=== PATIENT | male | born 1960 | race Two or more races ===

== ENCOUNTER → 2020-08-16 | Outpatient (CLI) | payer OTHER ==
--- NOTE | 2020-08-16 22:10 | REP ---
INDICATION: RT INGUINAL HERNIA COMPARISON: None TECHNIQUE: Axial noncontrast images from the lung bases to the pubic symphysis with coronal and sagittal reformations. This CT examination was performed using the following dose reduction techniques: Automated exposure control, adjustment of mA and/or kv according to the patient's size, and use of iterative reconstruction technique. FINDINGS: Lung bases are clear. Visualized portions of the heart suggest cardiomegaly. Liver, spleen, pancreas, bilateral adrenal glands and kidneys are relatively normal for noncontrast evaluation. Cholelithiasis noted without acute cholecystitis. There is a large right inguinal hernia extending into and significantly distending the hemiscrotum to greater than 11 cm and includes mesenteric fat and multiple loops of nonobstructed small bowel, terminal ileum, and cecum/proximal ascending colon as well as the appendix. Significant diverticulosis throughout the descending and sigmoid colon is appreciated along with fat stranding adjacent to the descending/proximal sigmoid colon which requires correlation to exclude acute diverticulitis. There is no evidence for bowel obstruction or perforation and no ascites or drainable collection/abscess. A small fat containing left inguinal hernia is also identified. Pelvis demonstrates normal bladder and age-appropriate prostate/seminal vesicles. No ascites. No free air. No adenopathy. Abdominal aorta without aneurysm. Musculoskeletal structures are intact and without acute osseous abnormality. IMPRESSION: 1. Large right inguinal hernia extending into the right hemiscrotum which contains multiple loops of nonobstructed small bowel as well as the terminal ileum, cecum and appendix. 2. Colonic diverticulosis with subtle stranding adjacent to the distal descending/proximal sigmoid colon raising the possibility of diverticulitis and correlation is required. 3. Cholelithiasis 4. Possible cardiomegaly <Electronically signed by Cecilio Sorenson > 08/16/20 [id number]
== END ==
LOC: M RAD 14:11
PROVIDERS: ATTEND Surgery
DX: K40.90 Unilateral inguinal hernia, without obstruction or gangrene, not specified as recurrent (principal); K57.30 Diverticulosis of large intestine without perforation or abscess without bleeding; K80.20 Calculus of gallbladder without cholecystitis without obstruction

== ENCOUNTER → 2020-09-08 | Outpatient (CLI) | payer OTHER | LOC: M LABSMTC 12:23 | PROVIDERS: ATTEND Surgery | DX: Z11.59 Encounter for screening for other viral diseases (principal) ==

== ENCOUNTER 2020-10-13 10:34 | Outpatient (RCR) | payer OTHER | END 2020-10-17 | LOC: M PT 10:34 | PROVIDERS: ATTEND Nurse Practitioner Adult Health | DX: Z47.89 Encounter for other orthopedic aftercare (principal); Z89.511 Acquired absence of right leg below knee; Z97.13 Presence of artificial right leg (complete) (partial) ==

== ENCOUNTER 2020-11-10 10:44 | Outpatient (RCR) | payer OTHER | END 2020-11-14 | LOC: M PT 10:44 | PROVIDERS: ATTEND Nurse Practitioner Adult Health | DX: Z47.89 Encounter for other orthopedic aftercare (principal); Z97.13 Presence of artificial right leg (complete) (partial) ==

== ENCOUNTER → 2020-12-15 | Outpatient (RCR) | payer OTHER | LOC: M PT 11-17 10:36 | PROVIDERS: ATTEND Nurse Practitioner Adult Health | DX: Z51.89 Encounter for other specified aftercare (principal); Z89.511 Acquired absence of right leg below knee ==

== ENCOUNTER 2021-01-12 11:45 | Outpatient (RCR) | payer OTHER | END 2021-01-14 | LOC: M PT 11:45 | PROVIDERS: ATTEND Nurse Practitioner Adult Health | DX: Z89.511 Acquired absence of right leg below knee (principal) ==

== ENCOUNTER → 2021-01-14 | Outpatient (CLI) | payer OTHER | LOC: M LABSMTC 12:02 | PROVIDERS: ATTEND Student in an Organized Health Care Education/Training Program | DX: Z01.818 Encounter for other preprocedural examination (principal); Z11.52 Encounter for screening for COVID-19 ==

== ENCOUNTER 2021-01-26 11:27 | Outpatient (RCR) | payer OTHER | END 2021-02-14 | LOC: M PT 11:27 | PROVIDERS: ATTEND Nurse Practitioner Adult Health | DX: R26.89 Other abnormalities of gait and mobility (principal); Z89.519 Acquired absence of unspecified leg below knee ==

== ENCOUNTER → 2021-03-16 | Outpatient (RCR) | payer MEDICARE, OTHER | END | disposition still patient (30) | LOC: M PT 10:35 | PROVIDERS: ATTEND Nurse Practitioner Family | DX: Z89.511 Acquired absence of right leg below knee (principal) ==

== ENCOUNTER 2021-04-13 10:41 | Outpatient (RCR) | payer MEDICARE, OTHER | END 2021-04-16 | LOC: M PT 10:41 | PROVIDERS: ATTEND Nurse Practitioner Family | DX: Z89.511 Acquired absence of right leg below knee (principal) ==

== ENCOUNTER 2021-05-11 11:00 | Outpatient (RCR) | payer MEDICARE, OTHER | END 2021-05-17 | LOC: M PT 11:00 | PROVIDERS: ATTEND Nurse Practitioner Family | DX: Z89.511 Acquired absence of right leg below knee (principal) ==

== ENCOUNTER 2021-06-10 15:46 | Observation (INO) | payer MEDICARE, OTHER ==
[~2021-06-10] VITALS: Ht 170.2 cm; Wt 112.9 kg
[2021-06-10] MEDS ORDERED: BASA100I SC (21:12)
[2021-06-10] MEDS ORDERED: METO1TAB7 PO (21:12)
[2021-06-10] MEDS ORDERED: SIMV40TA20 PO (21:12)
[2021-06-10] MEDS ORDERED: ALLO100T PO (21:12)
[2021-06-10] MEDS ORDERED: FURO40TA2 PO (21:12)
[2021-06-10] MEDS ORDERED: [UNRECOGNIZED DRUG - CODE] PO (21:12)
[2021-06-10] MEDS ORDERED: LISI20TA33 PO (21:12)
[2021-06-10] MEDS ORDERED: CALC1CAP31 PO (21:12)
[2021-06-10] MEDS ORDERED: SODI650T PO (21:12)
[2021-06-10] MEDS ORDERED: ELIQ2.5T PO (21:12)
[2021-06-10] MEDS ORDERED: FLUTISP (21:12)
[2021-06-10] MEDS ORDERED: MORPHINE 4 MG/ML 1ML VIAL/SYRINGE (J2270) IV ONE (21:35)
[2021-06-10] MEDS ORDERED: NS 500 ML IV ONE (21:35)
[2021-06-10] MEDS ORDERED: ACET-840 PO (22:04)
[2021-06-10] MEDS ORDERED: HOME MED LIST COMPLETE! XX SCH (22:05)
--- NOTE | 2021-06-10 23:47 | REPVR ---
PROCEDURE INFORMATION: Exam: XR Left Hip Exam date and time: 06/10/2021 11:00 PM Age: 60 years old Clinical indication: Left hip pain. TECHNIQUE: Imaging protocol: XR Left hip. Views: 2 or 3 views hip with pelvis when performed. COMPARISON: CT ABD PELVIS W/O CONTRAST 08/16/2020 2:35 PM (The report from this study was not available for review at the time of this interpretation.) FINDINGS: Bones/joints: There is no fracture or dislocation of the bony pelvis or left hip. There is mild osteoarthritis of the left hip. Degenerative changes are present in the imaged portion of the lumbar spine. Soft tissues: Bowel gas is noted projecting over the right groin, and a large right inguinal hernia can be seen in the CT abdomen and pelvis on 08/16/2020. IMPRESSION: 1. No fracture or dislocation of the bony pelvis or left hip. 2. Mild osteoarthritis of the left hip. 3. Bowel gas projecting over the right groin, and a large right inguinal hernia can be seen in the CT abdomen and pelvis on 08/16/2020. Electronically signed by: Baltazar Prieto On 06/10/2021 23:47:06 PM
[2021-06-10 23:49] LABS: BASO # 0.1 10^3/uL (0.0-0.2); BASO % 0.8 % (0.0-1.0); EOS # 0.2 10^3/uL (0.0-0.5); EOS % 2.9 % (0.0-3.0); HEMATOCRIT 31.5 % (42.0-52.0); HEMOGLOBIN 9.8 g/dl (13.5-17.5); LYMPH # 1.8 10^3/uL (1.5-5.0); LYMPH % 24.1 % (24.0-44.0); MEAN CORPUSCULAR HEMOGLOBIN 31.5 pg (27.0-33.0); MEAN CORPUSCULAR HGB CONC 31.1 g/dl (32.0-36.5); MEAN CORPUSCULAR VOLUME 101.3 fl (80.0-96.0); MONO # 0.7 10^3/uL (0.0-0.8); MONO % 8.6 % (2.0-8.0); NEUTROPHILS # 4.8 10^3/uL (1.5-8.5); NEUTROPHILS % 63.3 % (36.0-66.0); PLATELET COUNT, AUTOMATED 235 10^3/uL (150-450); RED BLOOD COUNT 3.11 10^6/uL (4.30-6.10); WHITE BLOOD COUNT 7.5 10^3/uL (4.0-10.0)
[2021-06-11 00:05] LABS: VENOUS HCO3 17.5 MEQ/L (23.0-27.0); VENOUS O2 SATURATION 69.2 % (60.0-80.0); VENOUS PARTIAL PRESSURE O2 39.5 mmHg (30.0-50.0); VENOUS PH 7.208 UNITS (7.330-7.430); VENOUS TOTAL CO2 18.9 MEQ/L (24.0-28.0)
[2021-06-11 00:59] LABS: ACETONE/KETONE 4.31 MG/DL (<2.81); CALCIUM LEVEL 7.4 MG/DL (8.5-10.1); CREATININE FOR GFR 5.65 MG/DL (0.70-1.30); GLOMERULAR FILTRATION RATE 13.4 (>56)
[2021-06-11 01:00] LABS: POTASSIUM SERUM 6.4 MEQ/L (3.5-5.1)
[2021-06-11] MEDS ORDERED: SOD POLYSTYRENE SULFONATE SUSP 15 GM/60 ML UD PO ONE (02:15)
--- NOTE | 2021-06-11 02:48 | HPEPDOC ---
[facility] Medical History & Physical Date of Admission Jun 11, 2021 Date of Service: Jun 11, 2021 History and Physical CHIEF COMPLAINT: Left groin pain HISTORY OF PRESENT ILLNESS: 60-year-old male history of insulin-dependent diabetes, chronic kidney disease, atrial fibrillation who presents to emergency department complaining of left groin discomfort workup not very remarkable no fracture on x-ray possibly bursitis incidentally patient was found to have a potassium of 6.0. We don't have much higher records he follows with a grain mill products inspector in [place] for his chronic kidney disease he has an AV fistula which was completed about 3 months ago he is not yet on dialysis. Patient will be admitted for management of hyper kalemia in the setting of chronic kidney disease. Patient has no shortness of breath or chest pain. Patient is able to make urine without difficulty. PAST MEDICAL/SURGICAL HISTORY: Is some dependent diabetes Chronic kidney disease Atrial fibrillation Right below knee amputation AV fistula left arm SOCIAL HISTORY: Denies alcohol use Trying to quit tobacco use uses 1-2 cigarettes a day Denies illicit drug use FAMILY HISTORY: Father had a history of diabetes and congestive heart failure ALLERGIES: Please see below. REVIEW OF SYSTEMS: 10 point review of systems complete all negative otherwise stated in HPI HOME MEDICATIONS: Please see below. PHYSICAL EXAMINATION: Constitutional: Awake and alert, in no apparent distress ENT: Sclera are clear. Mucosa is moist. Respiratory: Lungs CTA bilaterally. No respiratory distress. Cardiovascular: Irregular heart rate. Heart rate 109 on monitor. Gastrointestinal: Abdomen is soft, non distended, non tender, BS present. Musculoskeletal: No lower left extremity edema. Right below-knee amputation. Able to move his left leg freely at the hip joint some discomfort around the lateral bursa. Neurologic: No focal neurological deficit. Mental Status: A&O x3, normal affect Skin: No visible rashes LABORATORY DATA: See below. IMAGING: See chart MICROBIOLOGY: Please see below. ASSESSMENT/PLAN 60-year-old male history of insulin-dependent diabetes, chronic kidney disease, atrial fibrillation admitted for observation for management of hyperkalemia in the setting of chronic kidney disease # Hyperkalemia: Potassium 6.0 on admission. Given 1 dose of 30 mg of Kayexalate. 1 L of normal saline started. EKG reviewed no peak T waves. Repeat potassium level in the morning. # Chronic kidney disease: Making urine. Likely progressing. As long as his kidney function remains stable he should be able to follow-up with his grain mill products inspector at time of discharge. # Atrial fibrillation: Heart rate 109 on monitor. Continue home medications. Continue to correlation with damon. # Left groin discomfort: Reports it's better on its own over the past several hours. Possibly bursitis. Monitor progression overnight. # DVT prophylaxis: Damon Garcia Hospitalist Vital Signs Vital Signs Date Time Temp Pulse Resp B/P (MAP) Pulse Ox O2 Delivery O2 Flow Rate FiO2 06/10/21 22:01 18 Room Air 06/10/21 15:47 98.4 64 137/87 (104) 98 Laboratory Data Labs 24H Laboratory Tests 2 06/10/21 21:05: POC Glucose (Misc Panel) 116H, POC Sodium (Misc Panel) 140, POC Potassium (Misc Panel) 5.7H, POC Chloride (Misc Panel) 116H, POC Total CO2 (Misc Panel) 17.0L, POC Blood Urea Nitrogen (Misc Panel 67H, POC Ionized Calcium (Misc Panel) 3.8L, POC Creatinine (Misc Panel) 6.3H, POC Hematocrit (Misc Panel) 36.0L 06/10/21 23:22: Immature Granulocyte % (Auto) 0.3, Neutrophils (%) (Auto) 63.3, Lymphocytes (%) (Auto) 24.1, Monocytes (%) (Auto) 8.6H, Eosinophils (%) (Auto) 2.9, Basophils (%) (Auto) 0.8, Neutrophils # (Auto) 4.8, Lymphocytes # (Auto) 1.8, Monocytes # (Auto) 0.7, Eosinophils # (Auto) 0.2, Basophils # (Auto) 0.1, Nucleated Red Blood Cells % (auto) 0.0, Blood Gas Bicarbonate Standard 16.0, Venous Blood pH 7.208L, Venous Blood Partial Pressure CO2 45.0, Venous Blood Partial Pressure O2 39.5, Venous Blood Total Carbon Dioxide 18.9L, Venous Blood HCO3 17.5L, Venous Blood Oxygen Saturation 69.2, Venous Blood Base Excess -10.0L 06/10/21 23:23: Anion Gap 10, Glomerular Filtration Rate 13.4L, Calcium Level 7.4L, B- Hydroxybutyrate 4.31H 06/11/21 02:34: CBC/BMP Laboratory Tests 06/10/21 23:22 06/10/21 23:23 06/11/21 01:40 Home Medications Scheduled Allopurinol (Allopurinol) 100 Mg Tablet, 100 MG PO DAILY Apixaban (Eliquis) 2.5 Mg Tablet, 2.5 MG PO BID Calcitriol (Calcitriol) 0.25 Mcg Capsule, 0.25 MCG PO DAILY Calcium Carbonate (Calcium Antacid) 300 Mg Tab.chew, 900 MG PO TID Fluticasone Propionate (Fluticasone Propionate) 16 Gm [place].susp, 1 SPRAY NA DAILY Furosemide (Furosemide) 40 Mg Tablet, 40 MG PO DAILY Insulin Glargine,Hum.rec.anlog (Basaglar Kwikpen U-100) 100 Unit/1 Ml Insuln.pen, 16 UNITS SC QHS Lisinopril (Lisinopril) 20 Mg Tablet, 20 MG PO DAILY Metoprolol Succinate (Metoprolol Succinate) 50 Mg Tab.er.24h, 50 MG PO DAILY Simvastatin (Simvastatin) 40 Mg Tablet, 40 MG PO DAILY Sodium Bicarbonate (Sodium Bicarbonate) 650 Mg Tablet, 1,300 MG PO TID Scheduled PRN Acetaminophen (Acetaminophen) 500 Mg Tablet, 1,500 MG PO TID PRN for P Allergies Coded Allergies: No Known Allergies (Unverified , 06/10/21) EDIL GARCIA MD Jun 11, 2021 02:48
[2021-06-11] MEDS ORDERED: GLUCAGON INJ 1MG VIAL SC PRN (02:50)
[2021-06-11] MEDS ORDERED: GLUCOSE 4GM CHEW TABLET PO PRN (02:50)
[2021-06-11] MEDS ORDERED: ACETAMINOPHEN TAB 650MG DOSE (2X325MG) PO PRN (02:50)
[2021-06-11] MEDS ORDERED: DEXTROSE 50% 50 ML SYRINGE IV PRN (02:50)
[2021-06-11] MEDS ORDERED: MOM 30ML SUSPENSION UDC PO PRN (02:50)
[2021-06-11] MEDS: LEVEMIR (INSULIN DETEMIR) 1 UNITS/0.01ML SC SCH ×2 (03:14→20:42)
[2021-06-11 03:17] LABS: RSV AMPLIFICATION NEGATIVE (NEGATIVE)
[2021-06-11] MEDS: NS 1,000 ML IV SCH ×2 (03:21→11:50)
[2021-06-11] MEDS ORDERED: PERCOCET 5MG/325MG TAB PO PRN (05:20)
[2021-06-11] MEDS: MORPHINE 2 MG/ML 1ML VIAL (J2270) IV PRN ×2 (05:35→11:59)
[2021-06-11 06:00] VITALS: BP 147/82
[2021-06-11 07:20] LABS: HEMATOCRIT 29.3 % (42.0-52.0); HEMOGLOBIN 9.1 g/dl (13.5-17.5); MEAN CORPUSCULAR HEMOGLOBIN 31.4 pg (27.0-33.0); MEAN CORPUSCULAR HGB CONC 31.1 g/dl (32.0-36.5); PLATELET COUNT, AUTOMATED 225 10^3/uL (150-450); WHITE BLOOD COUNT 6.1 10^3/uL (4.0-10.0)
[2021-06-11 07:54] LABS: ALBUMIN 2.5 GM/DL (3.2-5.2); BILIRUBIN,TOTAL 0.9 MG/DL (0.2-1.0); CALCIUM LEVEL 7.4 MG/DL (8.5-10.1); CREATININE FOR GFR 5.52 MG/DL (0.70-1.30); GLOMERULAR FILTRATION RATE 13.8 (>56); POTASSIUM SERUM 5.2 MEQ/L (3.5-5.1); TOTAL PROTEIN 5.9 GM/DL (6.4-8.2)
[2021-06-11] MEDS ORDERED: oxyCODONE 5MG TAB PO PRN (09:00)
[2021-06-11] MEDS ORDERED: METOPROLOL SUCC (TopROL XL) 50MG **XL** TAB PO SCH (09:00)
--- NOTE | 2021-06-11 09:06 | ECGEPIP ---
[facility] - ED Test Date: 2021-06-10 Pat Name: KAILYN JOSE Department: Room: [place] [address] Gender: Male Pocket Stitcher: ANTONI : 1960 Requested By: JEANNINE RESTREPO PA-C. Order Number: [id number] Reading MD: Ian Alexandra Measurements Intervals [place] Rate: 113 P: GA: QRS: -15 QRSD: 82 T: 5 QT: 336 QTc: 460 Interpretive Statements Atrial fibrillation with rapid ventricular response Nonspecific ST abnormality NO PRIORS FOR COMPARISON Electronically Signed on 06-11-2021 9:06:26 EDT by Ian Alexandra
[2021-06-11] MEDS: HumaLOG INSULIN (NovoLOG) PER UNIT SC SCH ×3 (10:49→17:29)
[2021-06-11] MEDS: CALCIUM CARBONATE 500 MG CHEW U/D PO SCH ×3 (11:44→20:43)
[2021-06-11] MEDS: SODIUM BICARBONATE 325 MG TAB PO SCH ×3 (11:44→20:43)
[2021-06-11] MEDS: CALCITRIOL 0.25 MCG CAP (S0169) PO SCH (11:45)
[2021-06-11] MEDS: APIXABAN 2.5 MG TAB (ELIQUIS) PO SCH ×2 (11:45→20:43)
[2021-06-11] MEDS: allopurinoL 100 MG TAB PO SCH (11:45)
[2021-06-11] MEDS: SIMVASTATIN 40 MG TAB PO SCH (11:45)
[2021-06-11] MEDS: FUROSEMIDE 40 MG TAB PO SCH (11:45)
[2021-06-11 14:00] VITALS: BP 130/72
[2021-06-11 14:05] LABS: CALCIUM LEVEL 7.5 MG/DL (8.5-10.1); CREATININE FOR GFR 5.46 MG/DL (0.70-1.30)
--- NOTE | 2021-06-11 18:31 | IPNPDOC ---
Subjective Date Seen The patient was seen on 06/11/21. Subjective Chief Complaint/HPI Mr. Dempsey is a 60-year-old male with history of insulin-dependent diabetes mellitus, CKD, and atrial fibrillation who presents with left groin pain and found to have hyperkalemia. Patient tells me that he has an AV fistula but not on dialysis yet. We discussed renal diet and avoiding foods high in potassium. Otherwise patient tells me his appetite has been poor, but he feels like he could eat today. I switch his diet to renal diet. Objective Physical Examination General Exam: Positive: Alert, Cooperative Eye Exam: Negative: Sclera icteric ENT Exam: Positive: Atraumatic Neck Exam: Positive: Supple Chest Exam: Positive: Clear to auscultation Heart Exam: Positive: Tachycardic, Regular Rhythm Abdomen Exam: Positive: Normal bowel sounds, Soft; Negative: Tenderness Neuro Exam: Positive: Normal Speech Psych Exam: Positive: Mental status NL, Mood NL Assessment /Plan Assessment Mr. Dempsey is a 60-year-old male with history of insulin-dependent diabetes mellitus, CKD, and atrial fibrillation who presents with left groin pain and found to have hyperkalemia. Possibly secondary to worsening renal function. Educated patient on renal diet and patient received IV fluids today. Potassium slowly trending downwards. Plan/VTE VTE Prophylaxis Ordered?: Yes Plan 1. Hyperkalemia Also secondary to worsening renal function in the setting of poor oral intake Hyperkalemia responded to Kayexalate and IV fluids Continue renal diet 2. Anorexia Patient tells me since last , he did not feel like eating Denies nausea and denies loss/change of taste Encourage oral intake 3. Diabetes mellitus Continue basal insulin at a reduced dose due to poor oral intake Sliding scale insulin Switched from carbohydrate consistent diet to renal diet as patient's oral intake was low 4. Starvation ketosis Ketones elevated, unlikely DKA Encourage oral intake 5. Atrial fibrillation Heart rate elevated but less than 120 Continue metoprolol Continue Eliquis 6. Left groin discomfort Most likely bursitis Supportive care and pain control 7. DVT prophylaxis Continue Eliquis Disposition: Pending diet tolerance and improvement in hyperkalemia VS, I&O, 24H, Fishbone Vital Signs/I&O Vital Signs Date Time Temp Pulse Resp B/P (MAP) Pulse Ox O2 Delivery O2 Flow Rate FiO2 06/11/21 15:38 18 06/11/21 14:00 97.8 102 130/72 (91) 100 Room Air Laboratory Data 24H LABS Laboratory Tests 2 06/10/21 21:05: POC Glucose (Misc Panel) 116H, POC Sodium (Misc Panel) 140, POC Potassium (Misc Panel) 5.7H, POC Chloride (Misc Panel) 116H, POC Total CO2 (Misc Panel) 17.0L, POC Blood Urea Nitrogen (Misc Panel 67H, POC Ionized Calcium (Misc Panel) 3.8L, POC Creatinine (Misc Panel) 6.3H, POC Hematocrit (Misc Panel) 36.0L 06/10/21 23:22: Immature Granulocyte % (Auto) 0.3, Neutrophils (%) (Auto) 63.3, Lymphocytes (%) (Auto) 24.1, Monocytes (%) (Auto) 8.6H, Eosinophils (%) (Auto) 2.9, Basophils (%) (Auto) 0.8, Neutrophils # (Auto) 4.8, Lymphocytes # (Auto) 1.8, Monocytes # (Auto) 0.7, Eosinophils # (Auto) 0.2, Basophils # (Auto) 0.1, Nucleated Red Blood Cells % (auto) 0.0, Blood Gas Bicarbonate Standard 16.0, Venous Blood pH 7.208L, Venous Blood Partial Pressure CO2 45.0, Venous Blood Partial Pressure O2 39.5, Venous Blood Total Carbon Dioxide 18.9L, Venous Blood HCO3 17.5L, Venous Blood Oxygen Saturation 69.2, Venous Blood Base Excess -10.0L 06/10/21 23:23: Anion Gap 10, Glomerular Filtration Rate 13.4L, Calcium Level 7.4L, B-Hydroxybutyrate 4.31H 06/11/21 02:34: Coronavirus (COVID-19)(PCR) NEGATIVE, Influenza Type A (RT-PCR) NEGATIVE, Influenza Type B (RT-PCR) NEGATIVE, Respiratory Syncytial Virus (PCR) NEGATIVE 06/11/21 03:08: Bedside Glucose (Misc Panel) 87 06/11/21 06:50: Nucleated Red Blood Cells % (auto) 0.0, Anion Gap 11, Glomerular Filtration Rate 13.8L, Calcium Level 7.4L, Total Bilirubin 0.9, Aspartate Amino Transf (AST/SGOT) 17, Alanine Aminotransferase (ALT/SGPT) 19, Alkaline Phosphatase 140H, Total Protein 5.9L, Albumin 2.5L, Albumin/Globulin Ratio 0.7 06/11/21 11:47: Bedside Glucose (Misc Panel) 153H 06/11/21 13:27: Anion Gap 8, Glomerular Filtration Rate 14.0L, Calcium Level 7.5L 06/11/21 17:20: Bedside Glucose (Misc Panel) 92 CBC/BMP Laboratory Tests 06/10/21 23:22 06/10/21 23:23 06/11/21 01:40 06/11/21 06:50 06/11/21 13:27 VERONIKA CLEMENT DO Jun 11, 2021 18:25
[2021-06-11] MEDS ORDERED: HumaLOG INSULIN (NovoLOG) PER UNIT SC SCH (21:00)
[2021-06-11 22:00] VITALS: BP 130/70
[2021-06-12 06:03] VITALS: BP 115/70
[2021-06-12 06:07] LABS: HEMATOCRIT 27.4 % (42.0-52.0); HEMOGLOBIN 8.5 g/dl (13.5-17.5); MEAN CORPUSCULAR HEMOGLOBIN 31.3 pg (27.0-33.0); MEAN CORPUSCULAR VOLUME 100.7 fl (80.0-96.0); PLATELET COUNT, AUTOMATED 234 10^3/uL (150-450); RED BLOOD COUNT 2.72 10^6/uL (4.30-6.10)
[2021-06-12 06:31] LABS: ALBUMIN 2.3 GM/DL (3.2-5.2); CREATININE FOR GFR 5.58 MG/DL (0.70-1.30); GLOMERULAR FILTRATION RATE 13.6 (>56); MAGNESIUM LEVEL 1.6 MG/DL (1.8-2.4); PHOSPHORUS LEVEL 5.6 MG/DL (2.5-4.9); POTASSIUM SERUM 4.6 MEQ/L (3.5-5.1)
[2021-06-12] MEDS: HumaLOG INSULIN (NovoLOG) PER UNIT SC SCH (07:30)
[2021-06-12] MEDS ORDERED: OXYC-517 PO (08:10)
[2021-06-12] MEDS ORDERED: ACET-840 PO (08:10)
[2021-06-12] MEDS ORDERED: BASA100I SC (08:10)
[2021-06-12] MEDS: CALCITRIOL 0.25 MCG CAP (S0169) PO SCH (08:57)
[2021-06-12] MEDS: allopurinoL 100 MG TAB PO SCH (08:57)
[2021-06-12 08:58] VITALS: BP 115/70
[2021-06-12] MEDS: APIXABAN 2.5 MG TAB (ELIQUIS) PO SCH (08:58)
[2021-06-12] MEDS: SIMVASTATIN 40 MG TAB PO SCH (08:58)
[2021-06-12] MEDS: CALCIUM CARBONATE 500 MG CHEW U/D PO SCH (08:58)
[2021-06-12] MEDS: FUROSEMIDE 40 MG TAB PO SCH (08:58)
[2021-06-12] MEDS: SODIUM BICARBONATE 325 MG TAB PO SCH (08:58)
[2021-06-12] MEDS ORDERED: METOPROLOL SUCC *XL* 25MG TAB (TopROL *XL*) PO SCH ×2 (09:00)
--- NOTE | 2021-06-12 13:47 | DS.PDOC ---
Discharge Summary General Date of Admission Jun 10, 2021 at 15:47 Date of Discharge Jun 12, 2021 Discharge Summary PROCEDURES PERFORMED DURING STAY: None ADMITTING DIAGNOSES: 1. Hyperkalemia 2. Anorexia 3. Insulin-dependent diabetes mellitus 4. Starvation ketosis 5. Persistent atrial fibrillation 6. Left groin discomfort 7. Morbid obesity 8. CKD stage IV DISCHARGE DIAGNOSES: 1. Hyperkalemia 2. Anorexia 3. Insulin-dependent diabetes mellitus 4. Starvation ketosis 5. Persistent atrial fibrillation 6. Left hip osteoarthritis 7. Morbid obesity 8. CKD stage IV COMPLICATIONS/CHIEF COMPLAINT: Atrial Fibrillation With Rvr, Bursitis Of Left Hip. HISTORY OF PRESENT ILLNESS: Copied from admitting attendings H&P " 60-year-old male history of insulin-dependent diabetes, chronic kidney dis ease, atrial fibrillation who presents to emergency department complaining of left groin discomfort workup not very remarkable no fracture on x-ray possibly bursitis incidentally patient was found to have a potassium of 6.0. We don't have much higher records he follows with a hemmer chainstitch in [place] for his chronic kidney disease he has an AV fistula which was completed about 3 months ago he is not yet on dialysis. Patient will be admitted for management of hyperkalemia in the setting of chronic kidney disease. Patient has no shortness of breath or chest pain. Patient is able to make urine without difficulty. HOSPITAL COURSE: During hospitalization, patient was given Kayexalate and IV fl uids. Renal function improved and potassium declined. Since patient had a poor appetite, I switch him from a carbohydrate consistent diet to a renal diet. I discussed the importance of avoiding foods high in potassium. Otherwise, I encouraged the patient to eat. His blood sugar was on the lower end. I switched his Basaglar from 16 units at bedtime to 5 units at bedtime. This morning, his hyperkalemia resolved. He denies chest pain or abdominal pain. He still had some left hip pain secondary to osteoarthritis. Patient felt ready for home and was discharged home. DISCHARGE MEDICATIONS: Please see below. ALLERGIES: Please see below. PHYSICAL EXAMINATION ON DISCHARGE: VITAL SIGNS: Please see below. GENERAL: Comfortable, in no apparent distress. HEENT: Head normocephalic/atraumatic, sclera clear. NECK: Supple. RESPIRATORY: Lungs clear to auscultation bilaterally, no rales, wheeze or rhonchi. CARDIOVASCULAR: Irregular. ABDOMEN: Soft, nontender, no guarding or rebound tenderness. Normal bowel sounds. MUSCLE SKELETAL: Right leg BKA PSYCHOLOGICAL: Normal mood and affect LABORATORY DATA: Please see below. IMAGING: Radiologist interpretation Left hip x-ray 1. No fracture or dislocation of the bony pelvis or left hip. 2. Mild osteoarthritis of the left hip. 3. Bowel gas projecting over the right groin, and a large right inguinal hernia can be seen in the CT abdomen and pelvis on 08/16/2020. PROGNOSIS: Good ACTIVITY: As tolerated. DIET: Renal diet DISCHARGE PLAN: Home DISPOSITION: Home, Self-Care. DISCHARGE INSTRUCTIONS: 1. Follow-up with PCP within 1 week 2. Follow-up with your hemmer chainstitch within 1 week. Have the hemmer chainstitch look over your labs 3. It does not appear that you will need lisinopril. Lisinopril may have contributed to your hyperkalemia 4. I have reduced your Basaglar from 16 units at bedtime to 5 units at bedtime. If your appetite improves, discuss with your PCP about increasing your Basaglar. ITEMS TO FOLLOWUP ON ON OUTPATIENT: 1. Blood glucose 2. Potassium DISCHARGE CONDITION: Stable. Total time spent on discharge planning, discharge summary, and medication reconciliation: 30 minutes Vital Signs/I&Os Vital Signs Date Time Temp Pulse Resp B/P (MAP) Pulse Ox O2 Delivery O2 Flow Rate FiO2 06/12/21 08:58 106 115/70 06/12/21 06:03 98.8 18 100 06/11/21 14:00 Room Air I&O- Last 24 Hours up to 6 AM 06/12/21 06:00 Intake Total 3580 ml Output Total 750 ml Balance 2830 ml Laboratory Data Labs 24H Laboratory Tests 2 06/11/21 17:20: Bedside Glucose (Misc Panel) 92 06/11/21 20:07: Bedside Glucose (Misc Panel) 170H 06/12/21 05:37: Nucleated Red Blood Cells % (auto) 0.0, Anion Gap 9, Glomerular Filtration Rate 13.6L, Calcium Level 7.0L, Phosphorus Level 5.6H, Magnesium Level 1.6L, Albumin 2.3L CBC/BMP Laboratory Tests 06/12/21 05:37 FSBS Laboratory Tests Test 06/11/21 17:20 06/11/21 20:07 Range/Units Bedside Glucose (Misc Panel) 92 170 70-105 MG/DL Discharge Medications Scheduled Allopurinol (Allopurinol) 100 Mg Tablet, 100 MG PO DAILY, (Reported) Apixaban (Eliquis) 2.5 Mg Tablet, 2.5 MG PO BID, (Reported) Calcitriol (Calcitriol) 0.25 Mcg Capsule, 0.25 MCG PO DAILY, (Reported) Calcium Carbonate (Calcium Antacid) 300 Mg Tab.chew, 900 MG PO TID, (Reported) Fluticasone Propionate (Fluticasone Propionate) 16 Gm [place].susp, 1 SPRAY NA DAILY, (Reported) Furosemide (Furosemide) 40 Mg Tablet, 40 MG PO DAILY, (Reported) Insulin Glargine,Hum.rec.anlog (Basaglar Kwikpen U-100) 100 Unit/1 Ml Insuln.pen, 5 UNITS SC QHS Metoprolol Succinate (Metoprolol Succinate) 50 Mg Tab.er.24h, 50 MG PO DAILY, (Reported) Simvastatin (Simvastatin) 40 Mg Tablet, 40 MG PO DAILY, (Reported) Sodium Bicarbonate (Sodium Bicarbonate) 650 Mg Tablet, 1,300 MG PO TID, (Re ported) Scheduled PRN Acetaminophen (Acetaminophen) 500 Mg Tablet, 1,000 MG PO TID PRN for P Oxycodone HCl (Oxycodone HCl) 5 Mg Tablet, 5 MG PO Q6HP PRN for MODERATE PAIN (PS 5-7) Allergies Coded Allergies: No Known Allergies (Unverified , 06/10/21) VERONIKA CLEMENT DO Jun 12, 2021 13:47
[2021-06-13] MEDS ORDERED: OXYC-517 PO ×2 (09:42→11:29)
== END 2021-06-12 10:28 | disposition home or self-care (01) ==
LOC: M ED 15:46 → M ED INP 15:47 → M MSPAV 06-11 05:00
PROVIDERS: ADMIT Family Medicine; ATTEND Internal Medicine
DX: E87.6 Hypokalemia (principal); M70.62 Trochanteric bursitis, left hip; R63.0 Anorexia; E11.9 Type 2 diabetes mellitus without complications; Z79.4 Long term (current) use of insulin; I48.19 Other persistent atrial fibrillation; E88.89 Other specified metabolic disorders; E66.01 Morbid (severe) obesity due to excess calories; N18.4 Chronic kidney disease, stage 4 (severe); F17.218 Nicotine dependence, cigarettes, with other nicotine-induced disorders; Z79.01 Long term (current) use of anticoagulants; Z79.899 Other long term (current) drug therapy
CPT/HCPCS: 36415; 73502; 80047; 80048; 80053; 80069; 82010; 82803; 83735; 84132; 85025; 85027; 87631; 93005; 93041; 96361; 96374; 96376; 99285; G0378; J2270

== ENCOUNTER 2021-10-28 09:05 | Inpatient (IN) | payer MEDICARE, OTHER ==
[~2021-10-28] VITALS: Ht 170.2 cm; Wt 110.0 kg
[~2021-10-28 09:05] MED LIST: ACET-840 PO; ALLO100T PO; BASA100I SC; CALC1CAP31 PO; ELIQ2.5T PO; FLUTISP; FURO40TA2 PO; LISI20TA33 PO; METO1TAB7 PO; OXYC-517 PO; SIMV40TA20 PO; SODI650T PO; [UNRECOGNIZED DRUG - CODE] PO
[2021-10-28 12:20] LABS: BASO # 0.1 10^3/uL (0.0-0.2); BASO % 0.9 % (0.0-1.0); EOS # 0.4 10^3/uL (0.0-0.5); EOS % 4.3 % (0.0-3.0); HEMATOCRIT 37.2 % (42.0-52.0); HEMOGLOBIN 11.7 g/dl (13.5-17.5); LYMPH # 2.9 10^3/uL (1.5-5.0); LYMPH % 28.7 % (24.0-44.0); MEAN CORPUSCULAR HEMOGLOBIN 31.1 pg (27.0-33.0); MEAN CORPUSCULAR HGB CONC 31.5 g/dl (32.0-36.5); MEAN CORPUSCULAR VOLUME 98.9 fl (80.0-96.0); MONO # 0.8 10^3/uL (0.0-0.8); MONO % 7.8 % (2.0-8.0); NEUTROPHILS # 5.9 10^3/uL (1.5-8.5); PLATELET COUNT, AUTOMATED 270 10^3/uL (150-450); RED BLOOD COUNT 3.76 10^6/uL (4.30-6.10); WHITE BLOOD COUNT 10.2 10^3/uL (4.0-10.0)
[2021-10-28 12:38] LABS: ERYTHROCYTE SEDIMENTATION RATE 59 mm/hr (0-20)
[2021-10-28 13:17] LABS: ALBUMIN 3.1 GM/DL (3.2-5.2); BILIRUBIN,DIRECT 0.2 MG/DL (0.0-0.2); BILIRUBIN,TOTAL 0.7 MG/DL (0.2-1.0); C REACTIVE PROTEIN QUANTITATIV 0.3 MG/DL (0.00-0.30); CALCIUM LEVEL 7.9 MG/DL (8.5-10.1); CREATININE FOR GFR 5.81 MG/DL (0.70-1.30); POTASSIUM SERUM 3.9 MEQ/L (3.5-5.1); TOTAL PROTEIN 6.9 GM/DL (6.4-8.2)
[2021-10-28 17:53] LABS: RSV AMPLIFICATION NEGATIVE (NEGATIVE)
[2021-10-28] MEDS ORDERED: LISI20TA33 PO (17:53)
[2021-10-28] MEDS ORDERED: LANTINJ4 SC (18:39)
[2021-10-28] MEDS ORDERED: HOME MED LIST COMPLETE! XX SCH (18:40)
[2021-10-28] MEDS ORDERED: FLUTICASONE PROP 0.05% NASAL SPRAY 16 GM (FLONASE) PRN (19:35)
[2021-10-28] MEDS ORDERED: DEXTROSE 50% 50 ML SYRINGE IV PRN (19:35)
[2021-10-28] MEDS ORDERED: GLUCAGON INJ 1MG VIAL SC PRN (19:35)
[2021-10-28] MEDS ORDERED: LEVEMIR (INSULIN DETEMIR) 1 UNITS/0.01ML SC SCH (21:00)
[2021-10-28] MEDS: HumaLOG INSULIN (NovoLOG) PER UNIT SC SCH (21:00)
[2021-10-28] MEDS: APIXABAN 2.5 MG TAB (ELIQUIS) PO SCH (21:40)
[2021-10-28 23:16] VITALS: BP 140/88
[2021-10-28] MEDS: SODIUM BICARBONATE 325 MG TAB PO SCH (23:37)
[2021-10-28] MEDS: CALCIUM CARBONATE 500 MG CHEW U/D PO SCH (23:37)
[2021-10-28] MEDS ORDERED: PERCOCET 5MG/325MG TAB PO PRN (23:55)
[2021-10-29] MEDS: PERCOCET 5MG/325MG TAB PO PRN (00:07)
[2021-10-29 05:18] VITALS: BP 151/90
[2021-10-29 06:42] LABS: BASO # 0.1 10^3/uL (0.0-0.2); BASO % 0.6 % (0.0-1.0); EOS # 0.3 10^3/uL (0.0-0.5); EOS % 2.7 % (0.0-3.0); HEMATOCRIT 34.9 % (42.0-52.0); HEMOGLOBIN 10.7 g/dl (13.5-17.5); LYMPH # 3.4 10^3/uL (1.5-5.0); LYMPH % 36.8 % (24.0-44.0); MEAN CORPUSCULAR HEMOGLOBIN 30.7 pg (27.0-33.0); MEAN CORPUSCULAR HGB CONC 30.7 g/dl (32.0-36.5); MEAN CORPUSCULAR VOLUME 100.3 fl (80.0-96.0); MONO # 0.9 10^3/uL (0.0-0.8); MONO % 9.7 % (2.0-8.0); NEUTROPHILS # 4.7 10^3/uL (1.5-8.5); PLATELET COUNT, AUTOMATED 247 10^3/uL (150-450); RED BLOOD COUNT 3.48 10^6/uL (4.30-6.10); WHITE BLOOD COUNT 9.3 10^3/uL (4.0-10.0)
[2021-10-29 07:05] LABS: HEMOGLOBIN A1c 7.5 %
[2021-10-29 07:09] LABS: C REACTIVE PROTEIN QUANTITATIV 1.77 MG/DL (0.00-0.30); CALCIUM LEVEL 7.6 MG/DL (8.5-10.1); CREATININE FOR GFR 6.09 MG/DL (0.70-1.30); GLOMERULAR FILTRATION RATE 12.3 (>56)
[2021-10-29 07:28] LABS: ERYTHROCYTE SEDIMENTATION RATE 53 mm/hr (0-20)
[2021-10-29] MEDS: HumaLOG INSULIN (NovoLOG) PER UNIT SC SCH ×4 (07:30→21:00)
[2021-10-29] MEDS: GLUCOSE 4GM CHEW TABLET PO PRN (08:30)
[2021-10-29] MEDS: CALCITRIOL 0.25 MCG CAP (S0169) PO SCH (09:59)
[2021-10-29] MEDS: SODIUM BICARBONATE 325 MG TAB PO SCH ×3 (09:59→22:23)
[2021-10-29] MEDS: SIMVASTATIN 40 MG TAB PO SCH (10:00)
[2021-10-29] MEDS: allopurinoL 100 MG TAB PO SCH (10:00)
[2021-10-29] MEDS: CALCIUM CARBONATE 500 MG CHEW U/D PO SCH ×2 (10:00→22:23)
[2021-10-29] MEDS: METOPROLOL SUCC (TopROL XL) 50MG **XL** TAB PO SCH (10:00)
[2021-10-29] MEDS: APIXABAN 2.5 MG TAB (ELIQUIS) PO SCH ×2 (10:00→22:23)
[2021-10-29] MEDS: FUROSEMIDE 40 MG TAB PO SCH (10:00)
[2021-10-29 14:00] VITALS: BP 130/76
[2021-10-29] MEDS: LEVEMIR (INSULIN DETEMIR) 1 UNITS/0.01ML SC SCH (21:00)
[2021-10-29 22:00] VITALS: BP 131/81
[2021-10-30 06:00] VITALS: BP 105/59
[2021-10-30] MEDS: HumaLOG INSULIN (NovoLOG) PER UNIT SC SCH ×4 (07:29→21:00)
[2021-10-30] MEDS: SIMVASTATIN 40 MG TAB PO SCH (08:19)
[2021-10-30] MEDS: APIXABAN 2.5 MG TAB (ELIQUIS) PO SCH ×2 (08:19→21:36)
[2021-10-30] MEDS: CALCITRIOL 0.25 MCG CAP (S0169) PO SCH (08:19)
[2021-10-30] MEDS: CALCIUM CARBONATE 500 MG CHEW U/D PO SCH ×2 (08:19→21:36)
[2021-10-30] MEDS: allopurinoL 100 MG TAB PO SCH (08:19)
[2021-10-30] MEDS: FUROSEMIDE 40 MG TAB PO SCH (08:19)
[2021-10-30] MEDS: METOPROLOL SUCC (TopROL XL) 50MG **XL** TAB PO SCH (08:20)
[2021-10-30] MEDS: SODIUM BICARBONATE 325 MG TAB PO SCH ×3 (08:20→21:37)
[2021-10-30 14:00] VITALS: BP 133/67
[2021-10-30] MEDS: LEVEMIR (INSULIN DETEMIR) 1 UNITS/0.01ML SC SCH (21:38)
[2021-10-30] MEDS: PERCOCET 5MG/325MG TAB PO PRN (21:38)
[2021-10-30 22:00] VITALS: BP 123/61
[2021-10-31 06:00] VITALS: BP 129/77
[2021-10-31 07:21] LABS: HEMATOCRIT 34.1 % (42.0-52.0); HEMOGLOBIN 10.5 g/dl (13.5-17.5); MEAN CORPUSCULAR HEMOGLOBIN 30.8 pg (27.0-33.0); MEAN CORPUSCULAR HGB CONC 30.8 g/dl (32.0-36.5); PLATELET COUNT, AUTOMATED 254 10^3/uL (150-450); RED BLOOD COUNT 3.41 10^6/uL (4.30-6.10); WHITE BLOOD COUNT 9.2 10^3/uL (4.0-10.0)
[2021-10-31] MEDS: HumaLOG INSULIN (NovoLOG) PER UNIT SC SCH ×4 (07:30→21:00)
[2021-10-31 07:53] LABS: CALCIUM LEVEL 7.9 MG/DL (8.5-10.1); CREATININE FOR GFR 6.32 MG/DL (0.70-1.30); GLOMERULAR FILTRATION RATE 11.8 (>56); POTASSIUM SERUM 3.7 MEQ/L (3.5-5.1)
[2021-10-31] MEDS: SODIUM BICARBONATE 325 MG TAB PO SCH ×3 (10:21→21:57)
[2021-10-31] MEDS: FUROSEMIDE 40 MG TAB PO SCH (10:21)
[2021-10-31] MEDS: CALCITRIOL 0.25 MCG CAP (S0169) PO SCH (10:21)
[2021-10-31] MEDS: APIXABAN 2.5 MG TAB (ELIQUIS) PO SCH ×2 (10:21→21:58)
[2021-10-31] MEDS: SIMVASTATIN 40 MG TAB PO SCH (10:22)
[2021-10-31] MEDS: allopurinoL 100 MG TAB PO SCH (10:22)
[2021-10-31] MEDS: CALCIUM CARBONATE 500 MG CHEW U/D PO SCH ×2 (10:22→21:57)
[2021-10-31] MEDS: METOPROLOL SUCC (TopROL XL) 50MG **XL** TAB PO SCH (10:22)
[2021-10-31 14:00] VITALS: BP 125/76
[2021-10-31] MEDS: GLUCOSE 4GM CHEW TABLET PO PRN (17:02)
[2021-10-31] MEDS: LEVEMIR (INSULIN DETEMIR) 1 UNITS/0.01ML SC SCH (21:57)
[2021-10-31 22:00] VITALS: BP 119/79
[2021-10-31] MEDS: PERCOCET 5MG/325MG TAB PO PRN (22:06)
[2021-11-01 06:00] VITALS: BP 114/61
[2021-11-01] MEDS: HumaLOG INSULIN (NovoLOG) PER UNIT SC SCH ×3 (07:30→17:18)
[2021-11-01 07:59] LABS: HEMATOCRIT 30.4 % (42.0-52.0); HEMOGLOBIN 9.7 g/dl (13.5-17.5); MEAN CORPUSCULAR HEMOGLOBIN 31.5 pg (27.0-33.0); MEAN CORPUSCULAR HGB CONC 31.9 g/dl (32.0-36.5); MEAN CORPUSCULAR VOLUME 98.7 fl (80.0-96.0); PLATELET COUNT, AUTOMATED 235 10^3/uL (150-450); RED BLOOD COUNT 3.08 10^6/uL (4.30-6.10); WHITE BLOOD COUNT 8.8 10^3/uL (4.0-10.0)
[2021-11-01 08:22] LABS: CALCIUM LEVEL 7.4 MG/DL (8.5-10.1); CREATININE FOR GFR 6.17 MG/DL (0.70-1.30); GLOMERULAR FILTRATION RATE 12.1 (>56); POTASSIUM SERUM 3.9 MEQ/L (3.5-5.1)
[2021-11-01 09:00] VITALS: BP 112/64
[2021-11-01] MEDS: APIXABAN 2.5 MG TAB (ELIQUIS) PO SCH (09:05)
[2021-11-01] MEDS: FUROSEMIDE 40 MG TAB PO SCH (09:05)
[2021-11-01] MEDS: CALCIUM CARBONATE 500 MG CHEW U/D PO SCH (09:05)
[2021-11-01] MEDS: SIMVASTATIN 40 MG TAB PO SCH (09:05)
[2021-11-01] MEDS: allopurinoL 100 MG TAB PO SCH (09:05)
[2021-11-01] MEDS: SODIUM BICARBONATE 325 MG TAB PO SCH ×2 (09:05→16:36)
[2021-11-01] MEDS: CALCITRIOL 0.25 MCG CAP (S0169) PO SCH (09:05)
[2021-11-01] MEDS: METOPROLOL SUCC (TopROL XL) 50MG **XL** TAB PO SCH (09:06)
[2021-11-01 09:07] VITALS: BP 120/66
[2021-11-01] MEDS: PERCOCET 5MG/325MG TAB PO PRN (09:07)
[2021-11-01] MEDS: GLUCOSE 4GM CHEW TABLET PO PRN (09:16)
[2021-11-01] MEDS ORDERED: LANTINJ4 SC (16:31)
[2021-11-01] MEDS ORDERED: PERCOCET PO (16:31)
== END 2021-11-01 18:20 | disposition home health service (06) | DRG 935 ==
LOC: M ED 09:05 → M ED INP 17:18 → ENRESERV 22:31 → M MS5PR 23:18
PROVIDERS: ADMIT Internal Medicine; ATTEND Internal Medicine
DX: T25.222A Burn of second degree of left foot, initial encounter (principal); N18.5 Chronic kidney disease, stage 5; I12.0 Hypertensive chronic kidney disease with stage 5 chronic kidney disease or end stage renal disease; I48.20 Chronic atrial fibrillation, unspecified; E11.22 Type 2 diabetes mellitus with diabetic chronic kidney disease; E11.42 Type 2 diabetes mellitus with diabetic polyneuropathy; X11.8XXA Contact with other hot tap-water, initial encounter; F17.210 Nicotine dependence, cigarettes, uncomplicated; E11.621 Type 2 diabetes mellitus with foot ulcer; Y92.009 Unspecified place in unspecified non-institutional (private) residence as the place of occurrence of the external cause; Y99.8 Other external cause status; L97.521 Non-pressure chronic ulcer of other part of left foot limited to breakdown of skin; Y93.89 Activity, other specified; Z79.01 Long term (current) use of anticoagulants; Z79.4 Long term (current) use of insulin; Z79.899 Other long term (current) drug therapy; Z89.511 Acquired absence of right leg below knee; E11.51 Type 2 diabetes mellitus with diabetic peripheral angiopathy without gangrene

== ENCOUNTER 2021-11-03 10:27 | Emergency (ER) | payer MEDICARE, OTHER ==
[~2021-11-03 10:27] MED LIST changes: +LANTINJ4 SC; +PERCOCET PO
[2021-11-03] MEDS ORDERED: METOPROLOL SUCC (TopROL XL) 50MG **XL** TAB PO ONE (10:50)
[2021-11-03 11:08] LABS: BASO % 0.3 % (0.0-1.0); EOS % 0.1 % (0.0-3.0); HEMATOCRIT 30.2 % (42.0-52.0); HEMOGLOBIN 9.7 g/dl (13.5-17.5); LYMPH # 0.5 10^3/uL (1.5-5.0); LYMPH % 4.1 % (24.0-44.0); MEAN CORPUSCULAR HEMOGLOBIN 30.5 pg (27.0-33.0); MEAN CORPUSCULAR HGB CONC 32.1 g/dl (32.0-36.5); MONO # 0.9 10^3/uL (0.0-0.8); MONO % 7.5 % (2.0-8.0); NEUTROPHILS # 10.8 10^3/uL (1.5-8.5); NEUTROPHILS % 87.5 % (36.0-66.0); PLATELET COUNT, AUTOMATED 260 10^3/uL (150-450); RED BLOOD COUNT 3.18 10^6/uL (4.30-6.10); WHITE BLOOD COUNT 12.3 10^3/uL (4.0-10.0)
[2021-11-03 11:10] LABS: VENOUS BASE EXCESS -3.9 (-2.0-2.0); VENOUS HCO3 19.8 MEQ/L (23.0-27.0); VENOUS O2 SATURATION 99.2 % (60.0-80.0); VENOUS PARTIAL PRESSURE CO2 31.3 mmHg (38.0-50.0); VENOUS PARTIAL PRESSURE O2 159.5 mmHg (30.0-50.0); VENOUS PH 7.418 UNITS (7.330-7.430); VENOUS STANDARD HCO3 21.2 MEQ/L; VENOUS TOTAL CO2 20.7 MEQ/L (24.0-28.0)
[2021-11-03 11:36] VITALS: BP 127/58
[2021-11-03 11:46] LABS: ALBUMIN 2.4 GM/DL (3.2-5.2); BILIRUBIN,DIRECT 0.3 MG/DL (0.0-0.2); BILIRUBIN,TOTAL 0.9 MG/DL (0.2-1.0); CALCIUM LEVEL 7.4 MG/DL (8.5-10.1); CREATININE FOR GFR 6.68 MG/DL (0.70-1.30); GLOMERULAR FILTRATION RATE 9.1 (>56); POTASSIUM SERUM 4.1 MEQ/L (3.5-5.1); THYROID STIMULATING HORMONE 2.1 uIU/ML (0.358-3.740); TOTAL PROTEIN 6.2 GM/DL (6.4-8.2)
[2021-11-03 14:42] VITALS: BP 115/71
== END 2021-11-03 17:06 | disposition home or self-care (01) ==
LOC: M ED 10:27 → EDBD 10:27 → M ED 17:06
DX: I48.91 Unspecified atrial fibrillation (principal); R50.9 Fever, unspecified; R11.2 Nausea with vomiting, unspecified; E11.9 Type 2 diabetes mellitus without complications; I12.0 Hypertensive chronic kidney disease with stage 5 chronic kidney disease or end stage renal disease; N18.5 Chronic kidney disease, stage 5; F17.200 Nicotine dependence, unspecified, uncomplicated; Z79.01 Long term (current) use of anticoagulants; Z79.899 Other long term (current) drug therapy

== ENCOUNTER 2021-11-10 09:27 | Emergency (ER) | payer MEDICARE, OTHER ==
[2021-11-10 10:40] LABS: BASO # 0.1 10^3/uL (0.0-0.2); BASO % 0.3 % (0.0-1.0); EOS # 0.1 10^3/uL (0.0-0.5); EOS % 0.7 % (0.0-3.0); HEMATOCRIT 29.8 % (42.0-52.0); HEMOGLOBIN 9.4 g/dl (13.5-17.5); LYMPH # 2.2 10^3/uL (1.5-5.0); LYMPH % 14.3 % (24.0-44.0); MEAN CORPUSCULAR HEMOGLOBIN 30.6 pg (27.0-33.0); MEAN CORPUSCULAR HGB CONC 31.5 g/dl (32.0-36.5); MEAN CORPUSCULAR VOLUME 97.1 fl (80.0-96.0); MONO # 1.4 10^3/uL (0.0-0.8); MONO % 8.7 % (2.0-8.0); NEUTROPHILS # 11.5 10^3/uL (1.5-8.5); NEUTROPHILS % 74.1 % (36.0-66.0); PLATELET COUNT, AUTOMATED 380 10^3/uL (150-450); RED BLOOD COUNT 3.07 10^6/uL (4.30-6.10); WHITE BLOOD COUNT 15.5 10^3/uL (4.0-10.0)
[2021-11-10 10:54] LABS: INR 1.37; PROTHROMBIN TIME 17.3 SECONDS (12.7-14.5)
[2021-11-10 11:02] LABS: ERYTHROCYTE SEDIMENTATION RATE 125 mm/hr (0-20)
[2021-11-10 11:12] LABS: ALBUMIN 1.7 GM/DL (3.2-5.2); BILIRUBIN,DIRECT 0.2 MG/DL (0.0-0.2); BILIRUBIN,TOTAL 0.5 MG/DL (0.2-1.0); C REACTIVE PROTEIN QUANTITATIV 17.3 MG/DL (0.00-0.30); CALCIUM LEVEL 7.2 MG/DL (8.5-10.1); CREATININE FOR GFR 7.93 MG/DL (0.70-1.30); GLOMERULAR FILTRATION RATE 7.5 (>56); POTASSIUM SERUM 4.2 MEQ/L (3.5-5.1); TOTAL PROTEIN 6.4 GM/DL (6.4-8.2)
[2021-11-10 11:58] VITALS: BP 148/85
== END 2021-11-10 12:05 | disposition home or self-care (01) ==
LOC: M ED 09:27
DX: N18.6 End stage renal disease (principal); S91.302A Unspecified open wound, left foot, initial encounter; X58.XXXA Exposure to other specified factors, initial encounter; Y92.9 Unspecified place or not applicable; Y93.9 Activity, unspecified; Y99.9 Unspecified external cause status; I48.91 Unspecified atrial fibrillation; E11.9 Type 2 diabetes mellitus without complications; Z79.01 Long term (current) use of anticoagulants; F17.200 Nicotine dependence, unspecified, uncomplicated; Z79.4 Long term (current) use of insulin; Z79.899 Other long term (current) drug therapy

== ENCOUNTER 2021-11-17 15:27 | Inpatient (IN) | payer MEDICARE, OTHER ==
[~2021-11-17] VITALS: Ht 170.2 cm; Wt 94.0 kg
[2021-11-17] MEDS ORDERED: NS 1,000 ML IV SCH (16:35)
[2021-11-17 16:40] VITALS: BP 126/82
[2021-11-17] MEDS ORDERED: ECOT81TA5 PO (18:01)
[2021-11-17] MEDS ORDERED: HOME MED LIST COMPLETE! XX SCH (18:05)
[2021-11-17 18:55] VITALS: BP 132/76
[2021-11-17 19:23] LABS: BASO # 0.1 10^3/uL (0.0-0.2); BASO % 0.4 % (0.0-1.0); EOS # 0.1 10^3/uL (0.0-0.5); EOS % 0.4 % (0.0-3.0); HEMATOCRIT 28.1 % (42.0-52.0); LYMPH # 2.1 10^3/uL (1.5-5.0); LYMPH % 14.8 % (24.0-44.0); MEAN CORPUSCULAR HEMOGLOBIN 30.6 pg (27.0-33.0); MEAN CORPUSCULAR VOLUME 95.6 fl (80.0-96.0); MONO # 1.1 10^3/uL (0.0-0.8); MONO % 7.9 % (2.0-8.0); NEUTROPHILS # 10.6 10^3/uL (1.5-8.5); NEUTROPHILS % 75.4 % (36.0-66.0); PLATELET COUNT, AUTOMATED 498 10^3/uL (150-450); RED BLOOD COUNT 2.94 10^6/uL (4.30-6.10); WHITE BLOOD COUNT 14.1 10^3/uL (4.0-10.0)
[2021-11-17 19:57] LABS: C REACTIVE PROTEIN QUANTITATIV 11.8 MG/DL (0.00-0.30); CALCIUM LEVEL 7.9 MG/DL (8.5-10.1); CREATININE FOR GFR 7.08 MG/DL (0.70-1.30); GLOMERULAR FILTRATION RATE 8.5 (>56); MAGNESIUM LEVEL 1.7 MG/DL (1.8-2.4)
[2021-11-17 20:00] LABS: ERYTHROCYTE SEDIMENTATION RATE 107 mm/hr (0-20)
[2021-11-17] MEDS ORDERED: METOPROLOL TART 12.5 MG PER 1/2 TAB PO ONE (20:05)
[2021-11-17] MEDS ORDERED: APIXABAN 2.5 MG TAB (ELIQUIS) PO SCH (21:00)
[2021-11-17] MEDS ORDERED: SODIUM BICARBONATE 325 MG TAB PO SCH (21:00)
[2021-11-17] MEDS: LEVEMIR (INSULIN DETEMIR) 1 UNITS/0.01ML SC SCH (21:43)
[2021-11-17] MEDS: MAG SULF 1GM/100ML (MAG RUN) 1 GM in IV 1 EA IV SCH ×2 (21:43→23:03)
[2021-11-17 22:00] VITALS: BP 131/74
[2021-11-17 23:00] VITALS: O2SAT 99
[2021-11-17] MEDS ORDERED: VANCOMYCIN HCL 1,000 MG, VIAL MATE ADAPTER 1 EACH in NS 250 ML IV ONE (23:10)
[2021-11-17] MEDS ORDERED: CEFEPIME HCL 1 GM in D5W MINI-BAG PLUS 50 ML IV ONE (23:30)
[2021-11-17] MEDS ORDERED: VANCOMYCIN INTERMITTENT/PULSE DOSING BY CLINICAL PHARMACIST PER DOSING PROTOCOL XX SCH (23:40)
[2021-11-18] MEDS ORDERED: VANCOMYCIN HCL 750 MG, VIAL MATE ADAPTER 1 EACH in NS 250 ML IV ONE ×2 (01:00→02:00)
[2021-11-18] MEDS: DOXYCYCLINE HYCLATE 100 MG in D5W MINI-BAG PLUS 100 ML IV SCH ×2 (01:29→13:01)
[2021-11-18 06:00] VITALS: BP 122/78
[2021-11-18 06:56] LABS: BASO # 0.1 10^3/uL (0.0-0.2); BASO % 0.4 % (0.0-1.0); EOS # 0.1 10^3/uL (0.0-0.5); EOS % 0.8 % (0.0-3.0); HEMATOCRIT 26.4 % (42.0-52.0); HEMOGLOBIN 8.2 g/dl (13.5-17.5); LYMPH # 2.9 10^3/uL (1.5-5.0); LYMPH % 23.1 % (24.0-44.0); MEAN CORPUSCULAR HEMOGLOBIN 30.3 pg (27.0-33.0); MEAN CORPUSCULAR HGB CONC 31.1 g/dl (32.0-36.5); MEAN CORPUSCULAR VOLUME 97.4 fl (80.0-96.0); MONO # 1.3 10^3/uL (0.0-0.8); MONO % 10.2 % (2.0-8.0); NEUTROPHILS # 8.1 10^3/uL (1.5-8.5); NEUTROPHILS % 64.5 % (36.0-66.0); PLATELET COUNT, AUTOMATED 466 10^3/uL (150-450); RED BLOOD COUNT 2.71 10^6/uL (4.30-6.10); WHITE BLOOD COUNT 12.5 10^3/uL (4.0-10.0)
[2021-11-18 07:29] LABS: CALCIUM LEVEL 7.8 MG/DL (8.5-10.1); CREATININE FOR GFR 7.05 MG/DL (0.70-1.30); GLOMERULAR FILTRATION RATE 8.5 (>56)
[2021-11-18] MEDS: allopurinoL 100 MG TAB PO SCH (08:18)
[2021-11-18] MEDS: CALCITRIOL 0.25 MCG CAP (S0169) PO SCH (08:19)
[2021-11-18] MEDS: FUROSEMIDE 40 MG TAB PO SCH (08:21)
[2021-11-18] MEDS: METOPROLOL SUCC (TopROL XL) 50MG **XL** TAB PO SCH (08:21)
[2021-11-18] MEDS ORDERED: APIXABAN 2.5 MG TAB (ELIQUIS) PO SCH ×2 (09:00→21:00)
[2021-11-18] MEDS ORDERED: FUROSEMIDE 40MG/4ML VIAL (J1940) XX SCH (09:00)
[2021-11-18 12:34] VITALS: O2SAT 98
[2021-11-18 14:00] VITALS: BP 133/75
[2021-11-18] MEDS: CEFEPIME HCL 1 GM in D5W MINI-BAG PLUS 50 ML IV SCH (17:57)
[2021-11-18] MEDS ORDERED: GLUCAGON INJ 1MG VIAL SC PRN (20:10)
[2021-11-18] MEDS: HumaLOG INSULIN (NovoLOG) PER UNIT SC SCH (20:21)
[2021-11-18 20:25] VITALS: O2SAT 97
[2021-11-18] MEDS: SIMVASTATIN 40 MG TAB PO SCH (20:27)
[2021-11-18] MEDS: LEVEMIR (INSULIN DETEMIR) 1 UNITS/0.01ML SC SCH (20:27)
[2021-11-18 22:00] VITALS: BP 101/66
[2021-11-19] VITALS (7 sets, daily range): BP systolic 122–146; BP diastolic 61–87; O2SAT 96
[2021-11-19] MEDS: DOXYCYCLINE HYCLATE 100 MG in D5W MINI-BAG PLUS 100 ML IV SCH (00:35)
[2021-11-19 06:00] LABS: BASO # 0.1 10^3/uL (0.0-0.2); BASO % 0.4 % (0.0-1.0); EOS # 0.1 10^3/uL (0.0-0.5); EOS % 0.7 % (0.0-3.0); HEMATOCRIT 24.8 % (42.0-52.0); HEMOGLOBIN 7.9 g/dl (13.5-17.5); LYMPH # 1.7 10^3/uL (1.5-5.0); LYMPH % 14.4 % (24.0-44.0); MEAN CORPUSCULAR HEMOGLOBIN 30.3 pg (27.0-33.0); MEAN CORPUSCULAR HGB CONC 31.9 g/dl (32.0-36.5); MONO % 8.7 % (2.0-8.0); NEUTROPHILS # 8.7 10^3/uL (1.5-8.5); NEUTROPHILS % 74.9 % (36.0-66.0); PLATELET COUNT, AUTOMATED 454 10^3/uL (150-450); RED BLOOD COUNT 2.61 10^6/uL (4.30-6.10); WHITE BLOOD COUNT 11.6 10^3/uL (4.0-10.0)
[2021-11-19 06:30] LABS: CALCIUM LEVEL 7.6 MG/DL (8.5-10.1); CREATININE FOR GFR 6.83 MG/DL (0.70-1.30); GLOMERULAR FILTRATION RATE 8.9 (>56); POTASSIUM SERUM 5.2 MEQ/L (3.5-5.1)
[2021-11-19] MEDS: HumaLOG INSULIN (NovoLOG) PER UNIT SC SCH ×5 (07:16→20:13)
[2021-11-19 09:16] LABS: HEMATOCRIT 26.5 % (42.0-52.0); HEMOGLOBIN 8.2 g/dl (13.5-17.5)
[2021-11-19] MEDS: allopurinoL 100 MG TAB PO SCH (09:16)
[2021-11-19] MEDS: CALCITRIOL 0.25 MCG CAP (S0169) PO SCH (09:16)
[2021-11-19] MEDS: METOPROLOL SUCC (TopROL XL) 50MG **XL** TAB PO SCH (09:22)
[2021-11-19] MEDS: FUROSEMIDE 40 MG TAB PO SCH (09:22)
[2021-11-19] MEDS ORDERED: VANCOMYCIN HCL 1,000 MG, VIAL MATE ADAPTER 1 EACH in NS 250 ML IV SCH (10:10)
[2021-11-19] MEDS: SODIUM BICARBONATE 325 MG TAB PO SCH ×2 (10:34→20:17)
[2021-11-19] MEDS ORDERED: VANCOMYCIN HCL 1,000 MG, VIAL MATE ADAPTER 1 EACH in NS 250 ML IV ONE (11:00)
[2021-11-19] MEDS ORDERED: PATIROMER SORBITEX CALCIUM 8.4 GM POWDER PACKET (VELTASSA) PO ONE (12:00)
[2021-11-19] MEDS: metroNIDAZOLE 500 MG in IV 1 EA IV SCH (15:19)
[2021-11-19] MEDS: CEFEPIME HCL 1 GM in D5W MINI-BAG PLUS 50 ML IV SCH (18:30)
[2021-11-19] MEDS: SIMVASTATIN 40 MG TAB PO SCH (20:17)
[2021-11-19] MEDS: LEVEMIR (INSULIN DETEMIR) 1 UNITS/0.01ML SC SCH (20:17)
[2021-11-19 21:19] LABS: HEMATOCRIT 24.4 % (42.0-52.0); HEMOGLOBIN 7.5 g/dl (13.5-17.5)
[2021-11-19] MEDS ORDERED: diphenhydrAMINE 25MG CAP PO ONE (21:45)
[2021-11-19] MEDS ORDERED: ACETAMINOPHEN TAB 650MG DOSE (2X325MG) PO ONE (21:45)
[2021-11-20] VITALS (7 sets, daily range): BP systolic 118–143; BP diastolic 64–85; O2SAT 98–99
[2021-11-20] MEDS: metroNIDAZOLE 500 MG in IV 1 EA IV SCH ×4 (02:04→23:25)
[2021-11-20 05:19] LABS: BASO # 0.1 10^3/uL (0.0-0.2); BASO % 0.5 % (0.0-1.0); EOS # 0.1 10^3/uL (0.0-0.5); EOS % 0.9 % (0.0-3.0); HEMATOCRIT 26.8 % (42.0-52.0); HEMOGLOBIN 8.5 g/dl (13.5-17.5); LYMPH # 2.1 10^3/uL (1.5-5.0); LYMPH % 17.1 % (24.0-44.0); MEAN CORPUSCULAR HEMOGLOBIN 30.2 pg (27.0-33.0); MEAN CORPUSCULAR HGB CONC 31.7 g/dl (32.0-36.5); MEAN CORPUSCULAR VOLUME 95.4 fl (80.0-96.0); MONO # 1.3 10^3/uL (0.0-0.8); MONO % 10.5 % (2.0-8.0); NEUTROPHILS # 8.8 10^3/uL (1.5-8.5); NEUTROPHILS % 70.2 % (36.0-66.0); PLATELET COUNT, AUTOMATED 473 10^3/uL (150-450); RED BLOOD COUNT 2.81 10^6/uL (4.30-6.10); WHITE BLOOD COUNT 12.5 10^3/uL (4.0-10.0)
[2021-11-20 05:36] LABS: CALCIUM LEVEL 7.7 MG/DL (8.5-10.1); CREATININE FOR GFR 6.92 MG/DL (0.70-1.30); GLOMERULAR FILTRATION RATE 8.7 (>56); POTASSIUM SERUM 4.8 MEQ/L (3.5-5.1)
[2021-11-20] MEDS: HumaLOG INSULIN (NovoLOG) PER UNIT SC SCH ×4 (07:30→20:32)
[2021-11-20] MEDS: METOPROLOL SUCC (TopROL XL) 50MG **XL** TAB PO SCH (08:41)
[2021-11-20] MEDS: CALCITRIOL 0.25 MCG CAP (S0169) PO SCH (08:42)
[2021-11-20] MEDS: SODIUM BICARBONATE 325 MG TAB PO SCH ×2 (08:42→20:52)
[2021-11-20] MEDS: allopurinoL 100 MG TAB PO SCH (08:42)
[2021-11-20] MEDS: CEFEPIME HCL 1 GM in D5W MINI-BAG PLUS 50 ML IV SCH (17:47)
[2021-11-20] MEDS: SIMVASTATIN 40 MG TAB PO SCH (20:52)
[2021-11-20] MEDS: LEVEMIR (INSULIN DETEMIR) 1 UNITS/0.01ML SC SCH (20:52)
[2021-11-21 06:00] VITALS: BP 138/77
[2021-11-21] MEDS: metroNIDAZOLE 500 MG in IV 1 EA IV SCH ×3 (06:23→23:15)
[2021-11-21] MEDS: HumaLOG INSULIN (NovoLOG) PER UNIT SC SCH ×4 (07:30→21:00)
[2021-11-21 08:40] LABS: BASO # 0.1 10^3/uL (0.0-0.2); BASO % 0.5 % (0.0-1.0); EOS # 0.1 10^3/uL (0.0-0.5); EOS % 0.5 % (0.0-3.0); HEMATOCRIT 28.3 % (42.0-52.0); HEMOGLOBIN 9.1 g/dl (13.5-17.5); LYMPH # 1.8 10^3/uL (1.5-5.0); LYMPH % 12.4 % (24.0-44.0); MEAN CORPUSCULAR HEMOGLOBIN 30.4 pg (27.0-33.0); MEAN CORPUSCULAR HGB CONC 32.2 g/dl (32.0-36.5); MEAN CORPUSCULAR VOLUME 94.6 fl (80.0-96.0); MONO # 1.3 10^3/uL (0.0-0.8); MONO % 8.7 % (2.0-8.0); NEUTROPHILS # 11.4 10^3/uL (1.5-8.5); NEUTROPHILS % 77.2 % (36.0-66.0); PLATELET COUNT, AUTOMATED 502 10^3/uL (150-450); RED BLOOD COUNT 2.99 10^6/uL (4.30-6.10); WHITE BLOOD COUNT 14.7 10^3/uL (4.0-10.0)
[2021-11-21] MEDS: ONDANSETRON 4MG/2ML VIAL IV PRN (08:43)
[2021-11-21] MEDS: allopurinoL 100 MG TAB PO SCH (08:47)
[2021-11-21] MEDS: SODIUM BICARBONATE 325 MG TAB PO SCH ×3 (08:47→21:46)
[2021-11-21] MEDS: METOPROLOL SUCC (TopROL XL) 50MG **XL** TAB PO SCH (08:48)
[2021-11-21] MEDS: CALCITRIOL 0.25 MCG CAP (S0169) PO SCH (08:48)
[2021-11-21 09:01] LABS: CALCIUM LEVEL 7.9 MG/DL (8.5-10.1); CREATININE FOR GFR 6.71 MG/DL (0.70-1.30); GLOMERULAR FILTRATION RATE 9.1 (>56)
[2021-11-21] MEDS ORDERED: CEFTAROLINE FOSAMIL 600 MG in D5W MINI-BAG PLUS 50 ML IV SCH (09:15)
[2021-11-21] MEDS ORDERED: METOPROLOL TART 25 MG TABLET PO ONE (12:00)
[2021-11-21] MEDS ORDERED: PROMETHAZINE 25MG/ML 1ML VIAL IV ONE (12:00)
[2021-11-21] MEDS: DOXYCYCLINE HYCLATE 100MG TABLET PO SCH ×2 (12:47→21:46)
[2021-11-21 14:00] VITALS: BP 137/89
[2021-11-21] MEDS ORDERED: LIDOCAINE 1% MDV 20ML VIAL As Ordered ONE (14:47)
[2021-11-21] MEDS ORDERED: METOPROLOL TART 25 MG TABLET PO PRN (16:55)
[2021-11-21] MEDS: CEFEPIME HCL 1 GM in D5W MINI-BAG PLUS 50 ML IV SCH (17:57)
[2021-11-21] MEDS: SODIUM CHLORIDE 0.9% INJ 10 ML SYR IV SCH (18:37)
[2021-11-21] MEDS: LEVEMIR (INSULIN DETEMIR) 1 UNITS/0.01ML SC SCH (21:00)
[2021-11-21] MEDS: SIMVASTATIN 40 MG TAB PO SCH (21:46)
[2021-11-21] MEDS: APIXABAN 5 MG TAB (ELIQUIS) PO SCH (21:46)
[2021-11-21 22:00] VITALS: BP 142/89; O2SAT 99
[2021-11-22 06:00] VITALS: BP 142/81
[2021-11-22] MEDS: SODIUM CHLORIDE 0.9% INJ 10 ML SYR IV SCH ×2 (06:39→17:25)
[2021-11-22] MEDS: metroNIDAZOLE 500 MG in IV 1 EA IV SCH ×3 (06:39→22:11)
[2021-11-22 07:19] LABS: BASO # 0.1 10^3/uL (0.0-0.2); BASO % 0.4 % (0.0-1.0); EOS # 0.2 10^3/uL (0.0-0.5); EOS % 1.5 % (0.0-3.0); HEMATOCRIT 26.4 % (42.0-52.0); HEMOGLOBIN 8.6 g/dl (13.5-17.5); LYMPH # 2.2 10^3/uL (1.5-5.0); LYMPH % 17.7 % (24.0-44.0); MEAN CORPUSCULAR HEMOGLOBIN 30.5 pg (27.0-33.0); MEAN CORPUSCULAR HGB CONC 32.6 g/dl (32.0-36.5); MEAN CORPUSCULAR VOLUME 93.6 fl (80.0-96.0); MONO # 1.3 10^3/uL (0.0-0.8); MONO % 10.5 % (2.0-8.0); NEUTROPHILS # 8.4 10^3/uL (1.5-8.5); PLATELET COUNT, AUTOMATED 467 10^3/uL (150-450); RED BLOOD COUNT 2.82 10^6/uL (4.30-6.10); WHITE BLOOD COUNT 12.2 10^3/uL (4.0-10.0)
[2021-11-22] MEDS: HumaLOG INSULIN (NovoLOG) PER UNIT SC SCH ×4 (07:30→21:00)
[2021-11-22 07:47] LABS: ALBUMIN 1.4 GM/DL (3.2-5.2); CALCIUM LEVEL 7.5 MG/DL (8.5-10.1); CREATININE FOR GFR 6.51 MG/DL (0.70-1.30); GLOMERULAR FILTRATION RATE 9.4 (>56); PHOSPHORUS LEVEL 5.5 MG/DL (2.5-4.9); POTASSIUM SERUM 4.6 MEQ/L (3.5-5.1)
[2021-11-22] MEDS: allopurinoL 100 MG TAB PO SCH (08:49)
[2021-11-22] MEDS: APIXABAN 5 MG TAB (ELIQUIS) PO SCH ×2 (08:49→22:09)
[2021-11-22] MEDS: DOXYCYCLINE HYCLATE 100MG TABLET PO SCH ×2 (08:49→22:08)
[2021-11-22] MEDS: CALCITRIOL 0.25 MCG CAP (S0169) PO SCH (08:49)
[2021-11-22] MEDS: SODIUM BICARBONATE 325 MG TAB PO SCH ×3 (08:49→22:08)
[2021-11-22] MEDS: METOPROLOL SUCC (TopROL XL) 50MG **XL** TAB PO SCH (08:49)
[2021-11-22] MEDS: DARBEPOETIN 100 MCG/0.5 ML *NON-DIALYSIS* SYRINGE (J0881) SC SCH (12:38)
[2021-11-22 14:00] VITALS: BP 142/94
[2021-11-22] MEDS: CEFEPIME HCL 1 GM in D5W MINI-BAG PLUS 50 ML IV SCH (17:24)
[2021-11-22] MEDS: LEVEMIR (INSULIN DETEMIR) 1 UNITS/0.01ML SC SCH (21:00)
[2021-11-22 22:00] VITALS: BP 143/93
[2021-11-22] MEDS: SIMVASTATIN 40 MG TAB PO SCH (22:08)
[2021-11-22] MEDS: ONDANSETRON 4MG/2ML VIAL IV PRN (22:23)
[2021-11-22] MEDS: SODIUM CHLORIDE 0.9% INJ 10 ML SYR IV PRN (23:40)
[2021-11-23] VITALS (10 sets, daily range): BP systolic 124–176; BP diastolic 79–102; O2SAT 93–98
[2021-11-23] MEDS ORDERED: PROCHLORPERAZINE 10MG/2ML VIAL (J0780 PER 1) IV ONE
[2021-11-23] MEDS ORDERED: PROMETHAZINE 25MG/ML 1ML VIAL IV ONE ×2 (01:00→21:55)
[2021-11-23] MEDS: SODIUM CHLORIDE 0.9% INJ 10 ML SYR IV PRN ×2 (02:23→19:30)
[2021-11-23] MEDS ORDERED: PROMETHAZINE 25MG/ML 1ML VIAL IV PRN (03:00)
[2021-11-23] MEDS: metroNIDAZOLE 500 MG in IV 1 EA IV SCH ×3 (06:13→23:00)
[2021-11-23] MEDS: SODIUM CHLORIDE 0.9% INJ 10 ML SYR IV SCH ×2 (06:14→17:23)
[2021-11-23 06:56] LABS: BASO % 0.3 % (0.0-1.0); EOS % 0.1 % (0.0-3.0); HEMATOCRIT 27.5 % (42.0-52.0); HEMOGLOBIN 8.6 g/dl (13.5-17.5); LYMPH # 1.6 10^3/uL (1.5-5.0); LYMPH % 12.9 % (24.0-44.0); MEAN CORPUSCULAR HEMOGLOBIN 29.9 pg (27.0-33.0); MEAN CORPUSCULAR HGB CONC 31.3 g/dl (32.0-36.5); MEAN CORPUSCULAR VOLUME 95.5 fl (80.0-96.0); MONO # 0.9 10^3/uL (0.0-0.8); MONO % 7.4 % (2.0-8.0); NEUTROPHILS # 9.8 10^3/uL (1.5-8.5); NEUTROPHILS % 78.6 % (36.0-66.0); PLATELET COUNT, AUTOMATED 495 10^3/uL (150-450); RED BLOOD COUNT 2.88 10^6/uL (4.30-6.10); WHITE BLOOD COUNT 12.5 10^3/uL (4.0-10.0)
[2021-11-23 07:21] LABS: CALCIUM LEVEL 7.8 MG/DL (8.5-10.1); CREATININE FOR GFR 6.36 MG/DL (0.70-1.30); GLOMERULAR FILTRATION RATE 9.6 (>56); MAGNESIUM LEVEL 1.9 MG/DL (1.8-2.4); POTASSIUM SERUM 4.7 MEQ/L (3.5-5.1)
[2021-11-23] MEDS: METOPROLOL SUCC (TopROL XL) 50MG **XL** TAB PO SCH (08:59)
[2021-11-23] MEDS: DOXYCYCLINE HYCLATE 100MG TABLET PO SCH ×2 (08:59→22:42)
[2021-11-23] MEDS: HumaLOG INSULIN (NovoLOG) PER UNIT SC SCH ×4 (08:59→21:00)
[2021-11-23] MEDS: SODIUM BICARBONATE 325 MG TAB PO SCH ×3 (09:00→22:42)
[2021-11-23] MEDS: allopurinoL 100 MG TAB PO SCH (09:00)
[2021-11-23] MEDS: CALCITRIOL 0.25 MCG CAP (S0169) PO SCH (09:00)
[2021-11-23] MEDS: APIXABAN 5 MG TAB (ELIQUIS) PO SCH ×2 (09:00→23:45)
[2021-11-23] MEDS: FIDAXOMICIN 200 MG TAB (DIFICID) PO SCH ×2 (14:40→22:42)
[2021-11-23] MEDS: ONDANSETRON 4MG/2ML VIAL IV PRN (17:23)
[2021-11-23] MEDS: CEFEPIME HCL 1 GM in D5W MINI-BAG PLUS 50 ML IV SCH (18:31)
[2021-11-23] MEDS: LEVEMIR (INSULIN DETEMIR) 1 UNITS/0.01ML SC SCH (22:19)
[2021-11-23] MEDS: METOPROLOL 5 MG/5 ML VIAL IV SCH ×3 (22:35→23:31)
[2021-11-23] MEDS: SIMVASTATIN 40 MG TAB PO SCH (22:42)
[2021-11-24] VITALS (26 sets, daily range): BP systolic 128–197; BP diastolic 64–101; O2SAT 65–100
[2021-11-24] MEDS: ONDANSETRON 4MG/2ML VIAL IV PRN (03:21)
[2021-11-24 03:53] LABS: BASO % 0.3 % (0.0-1.0); EOS % 0.1 % (0.0-3.0); HEMATOCRIT 30.7 % (42.0-52.0); HEMOGLOBIN 9.8 g/dl (13.5-17.5); LYMPH # 0.8 10^3/uL (1.5-5.0); LYMPH % 6.6 % (24.0-44.0); MEAN CORPUSCULAR HEMOGLOBIN 30.2 pg (27.0-33.0); MEAN CORPUSCULAR HGB CONC 31.9 g/dl (32.0-36.5); MEAN CORPUSCULAR VOLUME 94.5 fl (80.0-96.0); MONO # 0.4 10^3/uL (0.0-0.8); MONO % 2.8 % (2.0-8.0); NEUTROPHILS # 11.3 10^3/uL (1.5-8.5); NEUTROPHILS % 89.4 % (36.0-66.0); PLATELET COUNT, AUTOMATED 504 10^3/uL (150-450); RED BLOOD COUNT 3.25 10^6/uL (4.30-6.10); WHITE BLOOD COUNT 12.6 10^3/uL (4.0-10.0)
[2021-11-24] MEDS ORDERED: SCOPOLAMINE 1MG TRANSDERMAL PATCH TOP SCH (04:00)
[2021-11-24 04:03] LABS: INR 2.37; PROTHROMBIN TIME 26.3 SECONDS (12.7-14.5)
[2021-11-24 04:04] LABS: PARTIAL THROMBOPLASTIN TIME 39.1 SECONDS (25.9-37.0)
[2021-11-24 04:23] LABS: CALCIUM LEVEL 7.9 MG/DL (8.5-10.1); CREATININE FOR GFR 6.21 MG/DL (0.70-1.30); GLOMERULAR FILTRATION RATE 9.9 (>56); POTASSIUM SERUM 5.2 MEQ/L (3.5-5.1)
[2021-11-24] MEDS: PANTOPRAZOLE 40MG VIAL IV SCH ×2 (05:00→21:04)
[2021-11-24] MEDS: SUCRALFATE 1 GM TAB PO SCH ×3 (05:52→21:04)
[2021-11-24] MEDS: SODIUM CHLORIDE 0.9% INJ 10 ML SYR IV SCH ×2 (05:53→17:43)
[2021-11-24] MEDS: METOPROLOL TART 25 MG TABLET PO SCH ×4 (05:54→23:13)
[2021-11-24] MEDS: metroNIDAZOLE 500 MG in IV 1 EA IV SCH ×2 (05:54→14:16)
[2021-11-24] MEDS: HumaLOG INSULIN (NovoLOG) PER UNIT SC SCH ×4 (07:30→23:19)
[2021-11-24] MEDS: SODIUM CHLORIDE 0.9% INJ 10 ML SYR IV PRN ×2 (09:06→21:04)
[2021-11-24] MEDS: allopurinoL 100 MG TAB PO SCH (09:06)
[2021-11-24] MEDS: FIDAXOMICIN 200 MG TAB (DIFICID) PO SCH ×2 (09:06→21:03)
[2021-11-24] MEDS: DOXYCYCLINE HYCLATE 100MG TABLET PO SCH (09:06)
[2021-11-24] MEDS: CALCITRIOL 0.25 MCG CAP (S0169) PO SCH (09:06)
[2021-11-24] MEDS: SODIUM BICARBONATE 325 MG TAB PO SCH ×3 (10:20→21:03)
[2021-11-24] MEDS: diltiaZEM 125 MG in NS 100 ML IV SCH (10:22)
[2021-11-24] MEDS: NS 0.45% 1,000 ML IV SCH ×2 (10:23→23:27)
[2021-11-24 11:02] LABS: HEMATOCRIT 27.6 % (42.0-52.0); HEMOGLOBIN 8.8 g/dl (13.5-17.5); MEAN CORPUSCULAR HEMOGLOBIN 30.1 pg (27.0-33.0); MEAN CORPUSCULAR HGB CONC 31.9 g/dl (32.0-36.5); MEAN CORPUSCULAR VOLUME 94.5 fl (80.0-96.0); PLATELET COUNT, AUTOMATED 466 10^3/uL (150-450); RED BLOOD COUNT 2.92 10^6/uL (4.30-6.10); WHITE BLOOD COUNT 11.1 10^3/uL (4.0-10.0)
[2021-11-24] MEDS ORDERED: PATIROMER SORBITEX CALCIUM 8.4 GM POWDER PACKET (VELTASSA) PO ONE (12:00)
[2021-11-24 18:22] LABS: HEMATOCRIT 27.6 % (42.0-52.0); HEMOGLOBIN 8.8 g/dl (13.5-17.5); MEAN CORPUSCULAR HEMOGLOBIN 29.9 pg (27.0-33.0); MEAN CORPUSCULAR HGB CONC 31.9 g/dl (32.0-36.5); MEAN CORPUSCULAR VOLUME 93.9 fl (80.0-96.0); PLATELET COUNT, AUTOMATED 491 10^3/uL (150-450); RED BLOOD COUNT 2.94 10^6/uL (4.30-6.10); WHITE BLOOD COUNT 12.7 10^3/uL (4.0-10.0)
[2021-11-24 18:36] LABS: CALCIUM LEVEL 7.7 MG/DL (8.5-10.1); CREATININE FOR GFR 6.06 MG/DL (0.70-1.30); GLOMERULAR FILTRATION RATE 10.2 (>56); POTASSIUM SERUM 4.5 MEQ/L (3.5-5.1)
[2021-11-24] MEDS: LEVEMIR (INSULIN DETEMIR) 1 UNITS/0.01ML SC SCH (21:00)
[2021-11-25 04:00] VITALS: BP 156/88
[2021-11-25 05:14] LABS: HEMATOCRIT 28.8 % (42.0-52.0); HEMOGLOBIN 9.3 g/dl (13.5-17.5); MEAN CORPUSCULAR HEMOGLOBIN 30.4 pg (27.0-33.0); MEAN CORPUSCULAR HGB CONC 32.3 g/dl (32.0-36.5); MEAN CORPUSCULAR VOLUME 94.1 fl (80.0-96.0); PLATELET COUNT, AUTOMATED 477 10^3/uL (150-450); RED BLOOD COUNT 3.06 10^6/uL (4.30-6.10); WHITE BLOOD COUNT 12.7 10^3/uL (4.0-10.0)
[2021-11-25 05:29] LABS: CALCIUM LEVEL 7.7 MG/DL (8.5-10.1); CREATININE FOR GFR 5.89 MG/DL (0.70-1.30); GLOMERULAR FILTRATION RATE 10.5 (>56); POTASSIUM SERUM 4.1 MEQ/L (3.5-5.1)
[2021-11-25] MEDS: HumaLOG INSULIN (NovoLOG) PER UNIT SC SCH ×3 (06:00→17:18)
[2021-11-25] MEDS: SODIUM CHLORIDE 0.9% INJ 10 ML SYR IV SCH ×2 (06:00→17:18)
[2021-11-25] MEDS: SUCRALFATE 1 GM TAB PO SCH ×3 (06:07→21:51)
[2021-11-25] MEDS: METOPROLOL TART 25 MG TABLET PO SCH (06:09)
[2021-11-25] MEDS: diltiaZEM 125 MG in NS 100 ML IV SCH (07:36)
[2021-11-25 08:04] VITALS: BP 169/91
[2021-11-25] MEDS: PANTOPRAZOLE 40MG VIAL IV SCH ×2 (08:51→21:53)
[2021-11-25] MEDS: FIDAXOMICIN 200 MG TAB (DIFICID) PO SCH ×2 (08:51→21:51)
[2021-11-25] MEDS: allopurinoL 100 MG TAB PO SCH (08:52)
[2021-11-25] MEDS: CALCITRIOL 0.25 MCG CAP (S0169) PO SCH (08:52)
[2021-11-25] MEDS: SODIUM BICARBONATE 325 MG TAB PO SCH ×3 (08:52→21:51)
[2021-11-25] MEDS ORDERED: METOPROLOL TART 50 MG TAB PO ONE (12:00)
[2021-11-25 12:08] VITALS: BP 163/89
[2021-11-25] MEDS: PROMETHAZINE 25MG/ML 1ML VIAL IV PRN (12:45)
[2021-11-25] MEDS ORDERED: METOPROLOL TART 50 MG TAB PO SCH (14:00)
[2021-11-25] MEDS: NS 0.45% 1,000 ML IV SCH (14:32)
[2021-11-25 16:00] VITALS: BP 158/84
[2021-11-25 20:00] VITALS: BP 164/93
[2021-11-25] MEDS: LEVEMIR (INSULIN DETEMIR) 1 UNITS/0.01ML SC SCH (21:00)
[2021-11-25] MEDS: METOPROLOL TART 50 MG TAB PO SCH (21:53)
[2021-11-26] VITALS: BP 172/93
[2021-11-26] MEDS ORDERED: LEVEMIR (INSULIN DETEMIR) 1 UNITS/0.01ML SC ONE
[2021-11-26] MEDS: NS 0.45% 1,000 ML IV SCH ×2 (00:27→07:00)
[2021-11-26] MEDS: HumaLOG INSULIN (NovoLOG) PER UNIT SC SCH ×4 (01:19→18:00)
[2021-11-26 04:00] VITALS: BP 162/79
[2021-11-26] MEDS: SUCRALFATE 1 GM TAB PO SCH ×3 (05:18→21:27)
[2021-11-26] MEDS: METOPROLOL TART 50 MG TAB PO SCH ×3 (05:19→18:08)
[2021-11-26] MEDS: SODIUM CHLORIDE 0.9% INJ 10 ML SYR IV SCH ×2 (05:42→18:10)
[2021-11-26 08:00] VITALS: BP_SYST 136; BP_SYST 176; BP_DIAS 101; BP_DIAS 89
[2021-11-26 08:10] LABS: HEMATOCRIT 28.3 % (42.0-52.0); MEAN CORPUSCULAR HEMOGLOBIN 30.1 pg (27.0-33.0); MEAN CORPUSCULAR HGB CONC 31.8 g/dl (32.0-36.5); MEAN CORPUSCULAR VOLUME 94.6 fl (80.0-96.0); PLATELET COUNT, AUTOMATED 416 10^3/uL (150-450); RED BLOOD COUNT 2.99 10^6/uL (4.30-6.10); WHITE BLOOD COUNT 11.8 10^3/uL (4.0-10.0)
[2021-11-26] MEDS: FIDAXOMICIN 200 MG TAB (DIFICID) PO SCH ×2 (08:27→21:27)
[2021-11-26] MEDS: allopurinoL 100 MG TAB PO SCH (08:27)
[2021-11-26] MEDS: CALCITRIOL 0.25 MCG CAP (S0169) PO SCH (08:27)
[2021-11-26] MEDS: SODIUM BICARBONATE 325 MG TAB PO SCH ×3 (08:27→21:27)
[2021-11-26] MEDS: PANTOPRAZOLE 40MG VIAL IV SCH ×2 (08:28→21:26)
[2021-11-26] MEDS: diltiaZEM 125 MG in NS 100 ML IV SCH (08:28)
[2021-11-26 08:32] LABS: CALCIUM LEVEL 7.6 MG/DL (8.5-10.1); CREATININE FOR GFR 5.41 MG/DL (0.70-1.30); GLOMERULAR FILTRATION RATE 11.6 (>56)
[2021-11-26 12:00] VITALS: BP 168/96
[2021-11-26 16:00] VITALS: BP 169/88
[2021-11-26] MEDS: PERCOCET 5MG/325MG TAB PO PRN (18:09)
[2021-11-26 20:00] VITALS: BP 155/90
[2021-11-26] MEDS: LEVEMIR (INSULIN DETEMIR) 1 UNITS/0.01ML SC SCH (21:00)
[2021-11-27] VITALS: BP 162/90
[2021-11-27] MEDS: METOPROLOL TART 50 MG TAB PO SCH ×5 (00:19→23:49)
[2021-11-27 04:00] VITALS: BP 157/88
[2021-11-27] MEDS: SUCRALFATE 1 GM TAB PO SCH ×3 (05:39→21:41)
[2021-11-27] MEDS: HumaLOG INSULIN (NovoLOG) PER UNIT SC SCH ×4 (05:40→17:54)
[2021-11-27] MEDS: SODIUM CHLORIDE 0.9% INJ 10 ML SYR IV SCH ×2 (05:41→17:29)
[2021-11-27 06:02] LABS: HEMATOCRIT 26.4 % (42.0-52.0); HEMOGLOBIN 8.3 g/dl (13.5-17.5); MEAN CORPUSCULAR HEMOGLOBIN 30.3 pg (27.0-33.0); MEAN CORPUSCULAR HGB CONC 31.4 g/dl (32.0-36.5); MEAN CORPUSCULAR VOLUME 96.4 fl (80.0-96.0); PLATELET COUNT, AUTOMATED 359 10^3/uL (150-450); RED BLOOD COUNT 2.74 10^6/uL (4.30-6.10); WHITE BLOOD COUNT 7.5 10^3/uL (4.0-10.0)
[2021-11-27 06:22] LABS: CREATININE FOR GFR 5.1 MG/DL (0.70-1.30)
[2021-11-27 06:23] LABS: CALCIUM LEVEL 7.3 MG/DL (8.5-10.1); GLOMERULAR FILTRATION RATE 12.4 (>56)
[2021-11-27 08:00] VITALS: BP 157/73
[2021-11-27] MEDS: FIDAXOMICIN 200 MG TAB (DIFICID) PO SCH ×2 (08:39→20:10)
[2021-11-27] MEDS: SODIUM BICARBONATE 325 MG TAB PO SCH ×3 (08:39→20:10)
[2021-11-27] MEDS: allopurinoL 100 MG TAB PO SCH (08:40)
[2021-11-27] MEDS: PANTOPRAZOLE 40MG VIAL IV SCH ×2 (08:40→20:10)
[2021-11-27] MEDS: CALCITRIOL 0.25 MCG CAP (S0169) PO SCH (08:40)
[2021-11-27] MEDS: NS 0.45% 1,000 ML IV SCH ×2 (09:47→23:43)
[2021-11-27 12:00] VITALS: BP 164/79
[2021-11-27 13:46] LABS: CALCIUM LEVEL 6.9 MG/DL (8.5-10.1); CREATININE FOR GFR 4.97 MG/DL (0.70-1.30); GLOMERULAR FILTRATION RATE 12.8 (>56); MAGNESIUM LEVEL 1.6 MG/DL (1.8-2.4); POTASSIUM SERUM 3.8 MEQ/L (3.5-5.1)
[2021-11-27] MEDS: MAG SULF 1GM/100ML (MAG RUN) 1 GM in IV 1 EA IV SCH ×2 (15:59→17:28)
[2021-11-27 16:00] VITALS: BP 137/92
[2021-11-27 20:00] VITALS: BP 138/77; O2SAT 99
[2021-11-27] MEDS: LEVEMIR (INSULIN DETEMIR) 1 UNITS/0.01ML SC SCH (20:11)
[2021-11-28] VITALS: BP 138/70; O2SAT 99
[2021-11-28] MEDS: HumaLOG INSULIN (NovoLOG) PER UNIT SC SCH ×5 (00:16→21:00)
[2021-11-28 04:00] VITALS: BP 141/66
[2021-11-28 06:00] LABS: HEMATOCRIT 26.2 % (42.0-52.0); HEMOGLOBIN 8.2 g/dl (13.5-17.5); MEAN CORPUSCULAR HEMOGLOBIN 29.8 pg (27.0-33.0); MEAN CORPUSCULAR HGB CONC 31.3 g/dl (32.0-36.5); MEAN CORPUSCULAR VOLUME 95.3 fl (80.0-96.0); PLATELET COUNT, AUTOMATED 352 10^3/uL (150-450); RED BLOOD COUNT 2.75 10^6/uL (4.30-6.10); WHITE BLOOD COUNT 7.1 10^3/uL (4.0-10.0)
[2021-11-28] MEDS: SODIUM CHLORIDE 0.9% INJ 10 ML SYR IV SCH ×2 (06:00→17:08)
[2021-11-28] MEDS: METOPROLOL TART 50 MG TAB PO SCH ×3 (06:01→17:07)
[2021-11-28] MEDS: SUCRALFATE 1 GM TAB PO SCH ×3 (06:01→21:15)
[2021-11-28 06:29] LABS: ALBUMIN 1.4 GM/DL (3.2-5.2); CREATININE FOR GFR 4.93 MG/DL (0.70-1.30); GLOMERULAR FILTRATION RATE 12.9 (>56); PHOSPHORUS LEVEL 2.5 MG/DL (2.5-4.9); POTASSIUM SERUM 3.4 MEQ/L (3.5-5.1)
[2021-11-28] MEDS ORDERED: POTASSIUM CHLORIDE 10MEQ SR TABLET PO ONE (07:20)
[2021-11-28 08:24] VITALS: BP 141/80
[2021-11-28] MEDS: FIDAXOMICIN 200 MG TAB (DIFICID) PO SCH ×2 (08:27→21:13)
[2021-11-28] MEDS: CALCITRIOL 0.25 MCG CAP (S0169) PO SCH (08:27)
[2021-11-28] MEDS: allopurinoL 100 MG TAB PO SCH (08:28)
[2021-11-28] MEDS: SODIUM BICARBONATE 325 MG TAB PO SCH ×3 (08:28→21:13)
[2021-11-28] MEDS: PANTOPRAZOLE 40MG VIAL IV SCH ×2 (08:28→21:15)
[2021-11-28] MEDS: NS 0.45% 1,000 ML IV SCH (08:29)
[2021-11-28] MEDS: APIXABAN 2.5 MG TAB (ELIQUIS) PO SCH ×2 (10:38→21:14)
[2021-11-28 11:20] VITALS: BP 129/76
[2021-11-28 16:30] VITALS: BP 143/88
[2021-11-28] MEDS: LEVEMIR (INSULIN DETEMIR) 1 UNITS/0.01ML SC SCH (21:15)
[2021-11-29] MEDS: METOPROLOL TART 50 MG TAB PO SCH ×2 (01:26→06:25)
[2021-11-29 04:40] VITALS: BP 133/69
[2021-11-29 05:56] LABS: HEMATOCRIT 27.6 % (42.0-52.0); HEMOGLOBIN 8.6 g/dl (13.5-17.5); MEAN CORPUSCULAR HEMOGLOBIN 29.8 pg (27.0-33.0); MEAN CORPUSCULAR HGB CONC 31.2 g/dl (32.0-36.5); MEAN CORPUSCULAR VOLUME 95.5 fl (80.0-96.0); PLATELET COUNT, AUTOMATED 319 10^3/uL (150-450); RED BLOOD COUNT 2.89 10^6/uL (4.30-6.10); WHITE BLOOD COUNT 8.4 10^3/uL (4.0-10.0)
[2021-11-29 06:25] LABS: CALCIUM LEVEL 7.2 MG/DL (8.5-10.1); CREATININE FOR GFR 5.32 MG/DL (0.70-1.30); GLOMERULAR FILTRATION RATE 11.8 (>56); POTASSIUM SERUM 3.9 MEQ/L (3.5-5.1)
[2021-11-29] MEDS: SODIUM CHLORIDE 0.9% INJ 10 ML SYR IV SCH ×2 (06:25→17:12)
[2021-11-29] MEDS: SUCRALFATE 1 GM TAB PO SCH ×3 (06:25→21:41)
[2021-11-29 08:00] VITALS: BP 131/74
[2021-11-29] MEDS ORDERED: METOPROLOL TART 50 MG TAB PO ONE (08:30)
[2021-11-29] MEDS: APIXABAN 2.5 MG TAB (ELIQUIS) PO SCH ×2 (08:35→21:41)
[2021-11-29] MEDS: PANTOPRAZOLE 40MG VIAL IV SCH ×2 (08:35→21:41)
[2021-11-29] MEDS: CALCITRIOL 0.25 MCG CAP (S0169) PO SCH (08:35)
[2021-11-29] MEDS: HumaLOG INSULIN (NovoLOG) PER UNIT SC SCH ×4 (08:35→21:00)
[2021-11-29] MEDS: allopurinoL 100 MG TAB PO SCH (08:36)
[2021-11-29] MEDS: FIDAXOMICIN 200 MG TAB (DIFICID) PO SCH ×2 (08:36→21:41)
[2021-11-29] MEDS: SODIUM BICARBONATE 325 MG TAB PO SCH ×3 (08:36→21:41)
[2021-11-29] MEDS: DARBEPOETIN 100 MCG/0.5 ML *NON-DIALYSIS* SYRINGE (J0881) SC SCH (10:41)
[2021-11-29 12:37] VITALS: BP 130/68
[2021-11-29 20:10] VITALS: BP 128/67
[2021-11-29] MEDS: METOPROLOL TARTRATE 100MG TAB PO SCH (21:40)
[2021-11-29] MEDS: LEVEMIR (INSULIN DETEMIR) 1 UNITS/0.01ML SC SCH (21:42)
[2021-11-30 00:23] VITALS: BP 131/75
[2021-11-30 04:40] VITALS: BP 133/71
[2021-11-30] MEDS: SUCRALFATE 1 GM TAB PO SCH ×3 (05:34→20:56)
[2021-11-30] MEDS: SODIUM CHLORIDE 0.9% INJ 10 ML SYR IV SCH ×2 (05:35→18:12)
[2021-11-30 06:06] LABS: HEMATOCRIT 30.8 % (42.0-52.0); HEMOGLOBIN 9.4 g/dl (13.5-17.5); MEAN CORPUSCULAR HGB CONC 30.5 g/dl (32.0-36.5); MEAN CORPUSCULAR VOLUME 98.4 fl (80.0-96.0); PLATELET COUNT, AUTOMATED 321 10^3/uL (150-450); RED BLOOD COUNT 3.13 10^6/uL (4.30-6.10); WHITE BLOOD COUNT 8.7 10^3/uL (4.0-10.0)
[2021-11-30 06:22] LABS: CALCIUM LEVEL 7.3 MG/DL (8.5-10.1); CREATININE FOR GFR 5.37 MG/DL (0.70-1.30); GLOMERULAR FILTRATION RATE 11.7 (>56); POTASSIUM SERUM 4.3 MEQ/L (3.5-5.1)
[2021-11-30 08:25] VITALS: BP 122/72
[2021-11-30] MEDS: allopurinoL 100 MG TAB PO SCH (09:13)
[2021-11-30] MEDS: SODIUM BICARBONATE 325 MG TAB PO SCH ×3 (09:13→20:49)
[2021-11-30] MEDS: FIDAXOMICIN 200 MG TAB (DIFICID) PO SCH ×2 (09:13→20:50)
[2021-11-30] MEDS: CALCITRIOL 0.25 MCG CAP (S0169) PO SCH (09:14)
[2021-11-30] MEDS: PANTOPRAZOLE 40MG VIAL IV SCH ×2 (09:14→20:50)
[2021-11-30] MEDS: METOPROLOL TARTRATE 100MG TAB PO SCH ×2 (09:14→20:51)
[2021-11-30] MEDS: APIXABAN 2.5 MG TAB (ELIQUIS) PO SCH (09:14)
[2021-11-30] MEDS: HumaLOG INSULIN (NovoLOG) PER UNIT SC SCH ×4 (09:15→20:54)
[2021-11-30 12:45] VITALS: BP 124/70
[2021-11-30 12:57] LABS: HEPATITIS B CORE ANTIBODY IGM NEGATIVE (NEGATIVE); HEPATITIS B SURFACE ANTIBODY NEGATIVE (POSITIVE); HEPATITIS B SURFACE ANTIGEN NEGATIVE (NEGATIVE); HEPATITIS C VIRUS ABY INDEX 0.3 INDEX (<0.8)
[2021-11-30 20:00] VITALS: BP 131/82
[2021-11-30] MEDS: LEVEMIR (INSULIN DETEMIR) 1 UNITS/0.01ML SC SCH (21:08)
[2021-12-01 04:03] VITALS: BP 147/85
[2021-12-01] MEDS: SODIUM CHLORIDE 0.9% INJ 10 ML SYR IV SCH ×2 (06:16→17:42)
[2021-12-01] MEDS: SUCRALFATE 1 GM TAB PO SCH ×3 (06:16→21:50)
[2021-12-01 08:00] VITALS: BP 125/76
[2021-12-01 08:02] LABS: HEMATOCRIT 31.8 % (42.0-52.0); HEMOGLOBIN 9.9 g/dl (13.5-17.5); MEAN CORPUSCULAR HEMOGLOBIN 30.8 pg (27.0-33.0); MEAN CORPUSCULAR HGB CONC 31.1 g/dl (32.0-36.5); MEAN CORPUSCULAR VOLUME 99.1 fl (80.0-96.0); PLATELET COUNT, AUTOMATED 350 10^3/uL (150-450); RED BLOOD COUNT 3.21 10^6/uL (4.30-6.10); WHITE BLOOD COUNT 8.4 10^3/uL (4.0-10.0)
[2021-12-01 08:13] LABS: INR 1.21; PROTHROMBIN TIME 15.7 SECONDS (12.7-14.5)
[2021-12-01 08:23] LABS: CREATININE FOR GFR 5.39 MG/DL (0.70-1.30); GLOMERULAR FILTRATION RATE 11.7 (>56); POTASSIUM SERUM 4.3 MEQ/L (3.5-5.1)
[2021-12-01] MEDS: HumaLOG INSULIN (NovoLOG) PER UNIT SC SCH ×4 (09:43→21:00)
[2021-12-01] MEDS: PANTOPRAZOLE 40MG VIAL IV SCH ×2 (09:43→21:50)
[2021-12-01] MEDS: SODIUM BICARBONATE 325 MG TAB PO SCH ×2 (09:44→16:30)
[2021-12-01] MEDS: FIDAXOMICIN 200 MG TAB (DIFICID) PO SCH ×2 (09:44→21:51)
[2021-12-01] MEDS: allopurinoL 100 MG TAB PO SCH (09:44)
[2021-12-01] MEDS: CALCITRIOL 0.25 MCG CAP (S0169) PO SCH (09:45)
[2021-12-01] MEDS: METOPROLOL TARTRATE 100MG TAB PO SCH ×2 (09:46→21:51)
[2021-12-01] MEDS ORDERED: SODIUM CHLORIDE 0.9% 1000ML IV PRN (09:55)
[2021-12-01] MEDS ORDERED: LIDOCAINE 1% MDV 20ML VIAL As Ordered ONE (11:52)
[2021-12-01] MEDS ORDERED: fentaNYL 100 MCG/2 ML INJECTION As Ordered ONE (11:52)
[2021-12-01] MEDS ORDERED: diphenhydrAMINE 50MG/ML VIAL (J1200) As Ordered ONE (11:52)
[2021-12-01] MEDS ORDERED: MIDAZOLAM INJ 2MG/2ML VIAL (J2250 PER 1MG) As Ordered ONE (11:52)
[2021-12-01] MEDS ORDERED: ceFAZolin SOD 2 GM in IV 1 EA IV ONE (11:55)
[2021-12-01] MEDS ORDERED: ceFAZolin 2 GM/D5W 50 ML IV BAG (J0690 PER 500MG) As Ordered ONE (12:01)
[2021-12-01 16:05] VITALS: BP 153/67
[2021-12-01 20:00] VITALS: BP 138/79
[2021-12-01] MEDS: LEVEMIR (INSULIN DETEMIR) 1 UNITS/0.01ML SC SCH (21:58)
[2021-12-02 04:00] VITALS: BP 135/70
[2021-12-02] MEDS: SUCRALFATE 1 GM TAB PO SCH ×3 (05:02→21:00)
[2021-12-02] MEDS: SODIUM CHLORIDE 0.9% INJ 10 ML SYR IV SCH ×2 (05:03→18:27)
[2021-12-02] MEDS: HumaLOG INSULIN (NovoLOG) PER UNIT SC SCH ×4 (07:30→20:07)
[2021-12-02] MEDS ORDERED: SODIUM CHLORIDE 0.9% 1000ML IV PRN (07:50)
[2021-12-02 08:00] VITALS: BP 118/59
[2021-12-02] MEDS: FIDAXOMICIN 200 MG TAB (DIFICID) PO SCH ×2 (08:10→20:57)
[2021-12-02] MEDS: CALCITRIOL 0.25 MCG CAP (S0169) PO SCH (08:10)
[2021-12-02] MEDS: allopurinoL 100 MG TAB PO SCH (08:10)
[2021-12-02] MEDS: METOPROLOL TARTRATE 100MG TAB PO SCH ×2 (08:11→20:58)
[2021-12-02] MEDS: PANTOPRAZOLE 40MG VIAL IV SCH ×2 (08:11→20:57)
[2021-12-02] MEDS: SILVER SULFADIAZINE 1% CR 50 GM JAR TOP SCH ×2 (09:00→20:57)
[2021-12-02 09:16] LABS: BASO # 0.1 10^3/uL (0.0-0.2); BASO % 0.8 % (0.0-1.0); EOS # 0.2 10^3/uL (0.0-0.5); EOS % 2.9 % (0.0-3.0); HEMATOCRIT 28.3 % (42.0-52.0); HEMOGLOBIN 8.7 g/dl (13.5-17.5); LYMPH % 26.4 % (24.0-44.0); MEAN CORPUSCULAR HEMOGLOBIN 30.2 pg (27.0-33.0); MEAN CORPUSCULAR HGB CONC 30.7 g/dl (32.0-36.5); MEAN CORPUSCULAR VOLUME 98.3 fl (80.0-96.0); MONO # 1.2 10^3/uL (0.0-0.8); MONO % 15.5 % (2.0-8.0); NEUTROPHILS # 4.1 10^3/uL (1.5-8.5); NEUTROPHILS % 53.4 % (36.0-66.0); PLATELET COUNT, AUTOMATED 302 10^3/uL (150-450); RED BLOOD COUNT 2.88 10^6/uL (4.30-6.10); WHITE BLOOD COUNT 7.7 10^3/uL (4.0-10.0)
[2021-12-02 09:35] LABS: ERYTHROCYTE SEDIMENTATION RATE > 140 mm/hr (0-20)
[2021-12-02 10:26] LABS: ALBUMIN 1.7 GM/DL (3.2-5.2); BILIRUBIN,TOTAL 0.3 MG/DL (0.2-1.0); C REACTIVE PROTEIN QUANTITATIV 0.92 MG/DL (0.00-0.30); CALCIUM LEVEL 7.6 MG/DL (8.5-10.1); CREATININE FOR GFR 4.27 MG/DL (0.70-1.30); GLOMERULAR FILTRATION RATE 15.2 (>56); TOTAL PROTEIN 6.4 GM/DL (6.4-8.2)
[2021-12-02 12:00] VITALS: BP 149/65
[2021-12-02 16:00] VITALS: BP 139/66
[2021-12-02 20:20] VITALS: BP 125/72
[2021-12-02] MEDS: LEVEMIR (INSULIN DETEMIR) 1 UNITS/0.01ML SC SCH (20:58)
[2021-12-03 04:30] VITALS: BP 135/67
[2021-12-03] MEDS: SUCRALFATE 1 GM TAB PO SCH ×3 (05:58→21:17)
[2021-12-03] MEDS: SODIUM CHLORIDE 0.9% INJ 10 ML SYR IV SCH ×2 (05:59→18:08)
[2021-12-03] MEDS ORDERED: SODIUM CHLORIDE 0.9% 1000ML IV PRN (06:00)
[2021-12-03 07:22] LABS: BASO # 0.1 10^3/uL (0.0-0.2); BASO % 0.7 % (0.0-1.0); EOS # 0.2 10^3/uL (0.0-0.5); EOS % 2.2 % (0.0-3.0); HEMOGLOBIN 8.5 g/dl (13.5-17.5); LYMPH # 1.9 10^3/uL (1.5-5.0); LYMPH % 28.9 % (24.0-44.0); MEAN CORPUSCULAR HEMOGLOBIN 30.2 pg (27.0-33.0); MEAN CORPUSCULAR HGB CONC 30.4 g/dl (32.0-36.5); MEAN CORPUSCULAR VOLUME 99.6 fl (80.0-96.0); MONO # 1.1 10^3/uL (0.0-0.8); MONO % 15.6 % (2.0-8.0); NEUTROPHILS # 3.5 10^3/uL (1.5-8.5); NEUTROPHILS % 51.7 % (36.0-66.0); PLATELET COUNT, AUTOMATED 291 10^3/uL (150-450); RED BLOOD COUNT 2.81 10^6/uL (4.30-6.10); WHITE BLOOD COUNT 6.7 10^3/uL (4.0-10.0)
[2021-12-03 07:44] LABS: CALCIUM LEVEL 7.6 MG/DL (8.5-10.1); CREATININE FOR GFR 3.55 MG/DL (0.70-1.30); GLOMERULAR FILTRATION RATE 18.9 (>56); POTASSIUM SERUM 3.9 MEQ/L (3.5-5.1)
[2021-12-03] MEDS: HumaLOG INSULIN (NovoLOG) PER UNIT SC SCH ×4 (08:10→20:04)
[2021-12-03] MEDS: IRON SUCROSE 100MG 5ML VIAL (J1756 PER 1MG) IV SCH (08:55)
[2021-12-03] MEDS: allopurinoL 100 MG TAB PO SCH (12:43)
[2021-12-03] MEDS: CALCITRIOL 0.25 MCG CAP (S0169) PO SCH (12:43)
[2021-12-03] MEDS: METOPROLOL TARTRATE 100MG TAB PO SCH ×2 (12:44→20:31)
[2021-12-03] MEDS: SODIUM CHLORIDE 0.9% INJ 10 ML SYR IV PRN (12:44)
[2021-12-03] MEDS: PANTOPRAZOLE 40MG VIAL IV SCH ×2 (12:44→20:29)
[2021-12-03] MEDS: SILVER SULFADIAZINE 1% CR 50 GM JAR TOP SCH ×2 (12:44→20:31)
[2021-12-03] MEDS: DEXTROSE 50% 50 ML SYRINGE IV PRN (12:52)
[2021-12-03 20:22] VITALS: BP 121/60
[2021-12-03] MEDS: LEVEMIR (INSULIN DETEMIR) 1 UNITS/0.01ML SC SCH (20:29)
[2021-12-04 04:26] VITALS: BP 123/57
[2021-12-04] MEDS: SODIUM CHLORIDE 0.9% INJ 10 ML SYR IV SCH ×2 (05:23→17:51)
[2021-12-04] MEDS: SUCRALFATE 1 GM TAB PO SCH ×3 (05:23→22:05)
[2021-12-04 08:07] LABS: BASO # 0.1 10^3/uL (0.0-0.2); BASO % 0.9 % (0.0-1.0); EOS # 0.2 10^3/uL (0.0-0.5); HEMATOCRIT 27.6 % (42.0-52.0); HEMOGLOBIN 8.5 g/dl (13.5-17.5); LYMPH # 2.1 10^3/uL (1.5-5.0); LYMPH % 33.3 % (24.0-44.0); MEAN CORPUSCULAR HEMOGLOBIN 30.6 pg (27.0-33.0); MEAN CORPUSCULAR HGB CONC 30.8 g/dl (32.0-36.5); MEAN CORPUSCULAR VOLUME 99.3 fl (80.0-96.0); MONO # 1.2 10^3/uL (0.0-0.8); MONO % 18.8 % (2.0-8.0); NEUTROPHILS # 2.7 10^3/uL (1.5-8.5); NEUTROPHILS % 42.7 % (36.0-66.0); PLATELET COUNT, AUTOMATED 267 10^3/uL (150-450); RED BLOOD COUNT 2.78 10^6/uL (4.30-6.10); WHITE BLOOD COUNT 6.3 10^3/uL (4.0-10.0)
[2021-12-04] MEDS: PANTOPRAZOLE 40MG VIAL IV SCH ×2 (08:29→22:05)
[2021-12-04] MEDS: CALCITRIOL 0.25 MCG CAP (S0169) PO SCH (08:29)
[2021-12-04] MEDS: METOPROLOL TARTRATE 100MG TAB PO SCH ×2 (08:30→22:05)
[2021-12-04] MEDS: SILVER SULFADIAZINE 1% CR 50 GM JAR TOP SCH ×2 (08:30→21:00)
[2021-12-04] MEDS: HumaLOG INSULIN (NovoLOG) PER UNIT SC SCH ×4 (08:30→21:00)
[2021-12-04] MEDS: allopurinoL 100 MG TAB PO SCH (08:30)
[2021-12-04 09:47] LABS: CALCIUM LEVEL 7.1 MG/DL (8.5-10.1); CREATININE FOR GFR 3.35 MG/DL (0.70-1.30); GLOMERULAR FILTRATION RATE 20.2 (>56); POTASSIUM SERUM 3.7 MEQ/L (3.5-5.1)
[2021-12-04 18:30] VITALS: BP 124/82
[2021-12-04] MEDS: LEVEMIR (INSULIN DETEMIR) 1 UNITS/0.01ML SC SCH (22:07)
[2021-12-04] MEDS: SODIUM CHLORIDE 0.9% INJ 10 ML SYR IV PRN (22:13)
[2021-12-05 06:00] VITALS: BP 143/68
[2021-12-05] MEDS ORDERED: SODIUM CHLORIDE 0.9% 1000ML IV PRN (06:00)
[2021-12-05] MEDS: allopurinoL 100 MG TAB PO SCH (06:32)
[2021-12-05] MEDS: PANTOPRAZOLE 40MG VIAL IV SCH ×2 (06:32→20:23)
[2021-12-05] MEDS: SUCRALFATE 1 GM TAB PO SCH ×3 (06:32→21:31)
[2021-12-05] MEDS: CALCITRIOL 0.25 MCG CAP (S0169) PO SCH (06:32)
[2021-12-05] MEDS: METOPROLOL TARTRATE 100MG TAB PO SCH ×2 (06:33→21:32)
[2021-12-05] MEDS: SODIUM CHLORIDE 0.9% INJ 10 ML SYR IV SCH ×2 (06:33→17:16)
[2021-12-05 06:37] LABS: BASO # 0.1 10^3/uL (0.0-0.2); EOS # 0.3 10^3/uL (0.0-0.5); EOS % 3.4 % (0.0-3.0); HEMATOCRIT 28.8 % (42.0-52.0); HEMOGLOBIN 8.7 g/dl (13.5-17.5); LYMPH # 2.3 10^3/uL (1.5-5.0); MEAN CORPUSCULAR HEMOGLOBIN 29.9 pg (27.0-33.0); MEAN CORPUSCULAR HGB CONC 30.2 g/dl (32.0-36.5); MONO # 1.1 10^3/uL (0.0-0.8); MONO % 14.5 % (2.0-8.0); NEUTROPHILS # 3.6 10^3/uL (1.5-8.5); NEUTROPHILS % 49.1 % (36.0-66.0); PLATELET COUNT, AUTOMATED 282 10^3/uL (150-450); RED BLOOD COUNT 2.91 10^6/uL (4.30-6.10); WHITE BLOOD COUNT 7.4 10^3/uL (4.0-10.0)
[2021-12-05 07:11] LABS: CALCIUM LEVEL 7.3 MG/DL (8.5-10.1); CREATININE FOR GFR 4.7 MG/DL (0.70-1.30); GLOMERULAR FILTRATION RATE 13.7 (>56); PHOSPHORUS LEVEL 1.7 MG/DL (2.5-4.9); POTASSIUM SERUM 4.1 MEQ/L (3.5-5.1)
[2021-12-05] MEDS: HumaLOG INSULIN (NovoLOG) PER UNIT SC SCH ×4 (07:30→20:39)
[2021-12-05] MEDS: DARBEPOETIN 100 MCG/0.5 ML *DIALYSIS* SYRINGE (J0882) IV SCH (09:21)
[2021-12-05] MEDS: IRON SUCROSE 100MG 5ML VIAL (J1756 PER 1MG) IV SCH (10:05)
[2021-12-05] MEDS: SILVER SULFADIAZINE 1% CR 50 GM JAR TOP SCH ×2 (14:14→21:32)
[2021-12-05] MEDS: SODIUM CHLORIDE 0.9% INJ 10 ML SYR IV PRN (20:23)
[2021-12-05] MEDS: LEVEMIR (INSULIN DETEMIR) 1 UNITS/0.01ML SC SCH (21:31)
[2021-12-06 05:03] VITALS: BP 125/70
[2021-12-06] MEDS: SODIUM CHLORIDE 0.9% INJ 10 ML SYR IV SCH ×2 (05:19→17:38)
[2021-12-06] MEDS: SUCRALFATE 1 GM TAB PO SCH ×3 (05:22→21:26)
[2021-12-06 05:51] LABS: BASO # 0.1 10^3/uL (0.0-0.2); BASO % 0.9 % (0.0-1.0); EOS # 0.2 10^3/uL (0.0-0.5); EOS % 3.5 % (0.0-3.0); HEMATOCRIT 28.8 % (42.0-52.0); HEMOGLOBIN 8.6 g/dl (13.5-17.5); LYMPH # 2.2 10^3/uL (1.5-5.0); MEAN CORPUSCULAR HGB CONC 29.9 g/dl (32.0-36.5); MEAN CORPUSCULAR VOLUME 100.3 fl (80.0-96.0); MONO % 14.4 % (2.0-8.0); NEUTROPHILS # 3.4 10^3/uL (1.5-8.5); NEUTROPHILS % 49.2 % (36.0-66.0); PLATELET COUNT, AUTOMATED 265 10^3/uL (150-450); RED BLOOD COUNT 2.87 10^6/uL (4.30-6.10); WHITE BLOOD COUNT 6.9 10^3/uL (4.0-10.0)
[2021-12-06 06:09] LABS: CALCIUM LEVEL 7.5 MG/DL (8.5-10.1); CREATININE FOR GFR 3.69 MG/DL (0.70-1.30); POTASSIUM SERUM 3.6 MEQ/L (3.5-5.1)
[2021-12-06] MEDS: CALCITRIOL 0.25 MCG CAP (S0169) PO SCH (08:36)
[2021-12-06] MEDS: HumaLOG INSULIN (NovoLOG) PER UNIT SC SCH ×4 (08:37→20:46)
[2021-12-06] MEDS: allopurinoL 100 MG TAB PO SCH (08:37)
[2021-12-06] MEDS: PANTOPRAZOLE 40MG VIAL IV SCH ×2 (08:38→21:52)
[2021-12-06] MEDS: SILVER SULFADIAZINE 1% CR 400 GM JAR TOP SCH ×2 (08:38→21:28)
[2021-12-06] MEDS: METOPROLOL TARTRATE 100MG TAB PO SCH ×2 (08:39→21:26)
[2021-12-06] MEDS: LEVEMIR (INSULIN DETEMIR) 1 UNITS/0.01ML SC SCH (21:27)
[2021-12-06] MEDS: SODIUM CHLORIDE 0.9% INJ 10 ML SYR IV PRN (21:51)
[2021-12-06 22:00] VITALS: BP 145/70
[2021-12-07] MEDS: SODIUM CHLORIDE 0.9% INJ 10 ML SYR IV SCH ×2 (05:20→18:39)
[2021-12-07] MEDS: allopurinoL 100 MG TAB PO SCH (05:47)
[2021-12-07] MEDS: SUCRALFATE 1 GM TAB PO SCH ×3 (05:47→16:05)
[2021-12-07] MEDS: CALCITRIOL 0.25 MCG CAP (S0169) PO SCH (05:47)
[2021-12-07] MEDS: METOPROLOL TARTRATE 100MG TAB PO SCH ×2 (05:48→20:37)
[2021-12-07 06:00] VITALS: BP 116/76
[2021-12-07] MEDS ORDERED: SODIUM CHLORIDE 0.9% 1000ML IV PRN (06:00)
[2021-12-07 06:19] LABS: CALCIUM LEVEL 7.3 MG/DL (8.5-10.1); CREATININE FOR GFR 4.67 MG/DL (0.70-1.30); GLOMERULAR FILTRATION RATE 13.8 (>56); POTASSIUM SERUM 3.8 MEQ/L (3.5-5.1)
[2021-12-07] MEDS: HumaLOG INSULIN (NovoLOG) PER UNIT SC SCH ×4 (08:13→20:36)
[2021-12-07] MEDS: PANTOPRAZOLE 40MG VIAL IV SCH (08:30)
[2021-12-07] MEDS: IRON SUCROSE 100MG 5ML VIAL (J1756 PER 1MG) IV SCH (08:57)
[2021-12-07] MEDS: SILVER SULFADIAZINE 1% CR 400 GM JAR TOP SCH ×2 (13:14→20:38)
[2021-12-07] MEDS: GLUCOSE 4GM CHEW TABLET PO PRN (13:14)
[2021-12-07 16:00] VITALS: BP 114/69
[2021-12-07] MEDS: LEVEMIR (INSULIN DETEMIR) 1 UNITS/0.01ML SC SCH (20:36)
[2021-12-07] MEDS: PANTOPRAZOLE 40MG TAB (PROTONIX) PO SCH (20:37)
[2021-12-08 05:38] LABS: HEMATOCRIT 28.3 % (42.0-52.0); HEMOGLOBIN 8.7 g/dl (13.5-17.5); MEAN CORPUSCULAR HEMOGLOBIN 30.9 pg (27.0-33.0); MEAN CORPUSCULAR HGB CONC 30.7 g/dl (32.0-36.5); MEAN CORPUSCULAR VOLUME 100.4 fl (80.0-96.0); PLATELET COUNT, AUTOMATED 235 10^3/uL (150-450); RED BLOOD COUNT 2.82 10^6/uL (4.30-6.10); WHITE BLOOD COUNT 6.1 10^3/uL (4.0-10.0)
[2021-12-08] MEDS: SODIUM CHLORIDE 0.9% INJ 10 ML SYR IV SCH ×2 (05:43→18:26)
[2021-12-08 06:08] LABS: CALCIUM LEVEL 7.2 MG/DL (8.5-10.1); CREATININE FOR GFR 3.58 MG/DL (0.70-1.30); GLOMERULAR FILTRATION RATE 18.7 (>56); POTASSIUM SERUM 3.5 MEQ/L (3.5-5.1)
[2021-12-08] MEDS: SUCRALFATE 1 GM TAB PO SCH ×3 (06:44→22:00)
[2021-12-08] MEDS: HumaLOG INSULIN (NovoLOG) PER UNIT SC SCH ×4 (08:25→19:55)
[2021-12-08] MEDS: allopurinoL 100 MG TAB PO SCH (08:25)
[2021-12-08] MEDS: PANTOPRAZOLE 40MG TAB (PROTONIX) PO SCH ×2 (08:25→20:08)
[2021-12-08] MEDS: CALCITRIOL 0.25 MCG CAP (S0169) PO SCH (08:25)
[2021-12-08] MEDS: SILVER SULFADIAZINE 1% CR 400 GM JAR TOP SCH ×2 (08:26→20:09)
[2021-12-08] MEDS: METOPROLOL TARTRATE 100MG TAB PO SCH ×2 (08:28→20:09)
[2021-12-08 12:30] VITALS: BP 103/64
[2021-12-08] MEDS: LEVEMIR (INSULIN DETEMIR) 1 UNITS/0.01ML SC SCH (20:08)
[2021-12-08] MEDS: FIDAXOMICIN 200 MG TAB (DIFICID) PO SCH (20:08)
[2021-12-08 22:00] VITALS: BP 130/78
[2021-12-09] MEDS: SODIUM CHLORIDE 0.9% INJ 10 ML SYR IV SCH ×2 (05:33→17:12)
[2021-12-09] MEDS: allopurinoL 100 MG TAB PO SCH (05:34)
[2021-12-09] MEDS: FIDAXOMICIN 200 MG TAB (DIFICID) PO SCH ×2 (05:34→21:54)
[2021-12-09] MEDS: PANTOPRAZOLE 40MG TAB (PROTONIX) PO SCH ×2 (05:34→21:54)
[2021-12-09] MEDS: CALCITRIOL 0.25 MCG CAP (S0169) PO SCH (05:34)
[2021-12-09] MEDS: SUCRALFATE 1 GM TAB PO SCH ×3 (05:34→21:55)
[2021-12-09] MEDS: METOPROLOL TARTRATE 100MG TAB PO SCH ×2 (05:36→21:55)
[2021-12-09 06:00] VITALS: BP 104/54
[2021-12-09] MEDS ORDERED: SODIUM CHLORIDE 0.9% 1000ML IV PRN (06:00)
[2021-12-09 06:19] LABS: CALCIUM LEVEL 7.3 MG/DL (8.5-10.1); CREATININE FOR GFR 4.87 MG/DL (0.70-1.30); GLOMERULAR FILTRATION RATE 13.1 (>56); POTASSIUM SERUM 3.7 MEQ/L (3.5-5.1)
[2021-12-09] MEDS: HumaLOG INSULIN (NovoLOG) PER UNIT SC SCH ×4 (08:10→21:00)
[2021-12-09] MEDS: SILVER SULFADIAZINE 1% CR 400 GM JAR TOP SCH ×2 (10:38→21:56)
[2021-12-09] MEDS: IRON SUCROSE 100MG 5ML VIAL (J1756 PER 1MG) IV SCH (12:29)
[2021-12-09 20:30] VITALS: BP 122/81
[2021-12-09] MEDS: LEVEMIR (INSULIN DETEMIR) 1 UNITS/0.01ML SC SCH (21:54)
[2021-12-10 05:18] VITALS: BP 107/66
[2021-12-10] MEDS: SODIUM CHLORIDE 0.9% INJ 10 ML SYR IV SCH ×2 (06:00→18:06)
[2021-12-10] MEDS: SUCRALFATE 1 GM TAB PO SCH ×3 (06:00→22:25)
[2021-12-10] MEDS: HumaLOG INSULIN (NovoLOG) PER UNIT SC SCH ×4 (07:55→20:36)
[2021-12-10] MEDS: FIDAXOMICIN 200 MG TAB (DIFICID) PO SCH (07:56)
[2021-12-10] MEDS: METOPROLOL TARTRATE 100MG TAB PO SCH ×2 (07:57→20:36)
[2021-12-10] MEDS: PANTOPRAZOLE 40MG TAB (PROTONIX) PO SCH ×2 (07:57→20:31)
[2021-12-10] MEDS: CALCITRIOL 0.25 MCG CAP (S0169) PO SCH (07:57)
[2021-12-10] MEDS: allopurinoL 100 MG TAB PO SCH (07:58)
[2021-12-10] MEDS: SILVER SULFADIAZINE 1% CR 400 GM JAR TOP SCH ×2 (07:59→20:37)
[2021-12-10] MEDS: GLUCOSE 4GM CHEW TABLET PO PRN (11:13)
[2021-12-10] MEDS: VANCOMYCIN ORAL SOL 250MG/5ML ORAL SYRINGE PO SCH (20:35)
[2021-12-10] MEDS: LEVEMIR (INSULIN DETEMIR) 1 UNITS/0.01ML SC SCH (22:25)
[2021-12-11] MEDS: VANCOMYCIN ORAL SOL 250MG/5ML ORAL SYRINGE PO SCH ×4 (00:50→18:41)
[2021-12-11] MEDS: SUCRALFATE 1 GM TAB PO SCH ×3 (06:02→21:24)
[2021-12-11] MEDS: SODIUM CHLORIDE 0.9% INJ 10 ML SYR IV SCH ×2 (06:03→18:43)
[2021-12-11 06:12] VITALS: BP 136/66
[2021-12-11] MEDS: CALCITRIOL 0.25 MCG CAP (S0169) PO SCH (07:58)
[2021-12-11] MEDS: allopurinoL 100 MG TAB PO SCH (07:58)
[2021-12-11] MEDS: PANTOPRAZOLE 40MG TAB (PROTONIX) PO SCH ×2 (07:59→21:25)
[2021-12-11] MEDS: METOPROLOL TARTRATE 100MG TAB PO SCH ×2 (07:59→21:25)
[2021-12-11] MEDS: HumaLOG INSULIN (NovoLOG) PER UNIT SC SCH ×4 (07:59→21:00)
[2021-12-11] MEDS: SILVER SULFADIAZINE 1% CR 400 GM JAR TOP SCH ×2 (08:00→21:24)
[2021-12-11] MEDS: LEVEMIR (INSULIN DETEMIR) 1 UNITS/0.01ML SC SCH (21:24)
[2021-12-12] MEDS: VANCOMYCIN ORAL SOL 250MG/5ML ORAL SYRINGE PO SCH ×4 (00:13→17:26)
[2021-12-12] MEDS ORDERED: hydrOXYzine 10 MG TAB PO ONE (04:00)
[2021-12-12] MEDS: SODIUM CHLORIDE 0.9% INJ 10 ML SYR IV SCH ×2 (05:52→17:27)
[2021-12-12] MEDS: allopurinoL 100 MG TAB PO SCH (05:53)
[2021-12-12] MEDS: PANTOPRAZOLE 40MG TAB (PROTONIX) PO SCH ×2 (05:53→18:08)
[2021-12-12] MEDS: SUCRALFATE 1 GM TAB PO SCH ×3 (05:54→20:17)
[2021-12-12] MEDS: METOPROLOL TARTRATE 100MG TAB PO SCH ×2 (05:54→20:17)
[2021-12-12] MEDS: CALCITRIOL 0.25 MCG CAP (S0169) PO SCH (05:54)
[2021-12-12 05:59] VITALS: BP 136/74
[2021-12-12] MEDS: DEXTROSE 50% 50 ML SYRINGE IV PRN (06:07)
[2021-12-12] MEDS ORDERED: SODIUM CHLORIDE 0.9% 1000ML IV PRN (06:55)
[2021-12-12 07:02] VITALS: BP 166/84
[2021-12-12] MEDS: HumaLOG INSULIN (NovoLOG) PER UNIT SC SCH (07:24)
[2021-12-12 07:59] LABS: HEMATOCRIT 33.9 % (42.0-52.0); HEMOGLOBIN 10.2 g/dl (13.5-17.5); MEAN CORPUSCULAR HEMOGLOBIN 30.3 pg (27.0-33.0); MEAN CORPUSCULAR HGB CONC 30.1 g/dl (32.0-36.5); MEAN CORPUSCULAR VOLUME 100.6 fl (80.0-96.0); PLATELET COUNT, AUTOMATED 227 10^3/uL (150-450); RED BLOOD COUNT 3.37 10^6/uL (4.30-6.10); WHITE BLOOD COUNT 6.7 10^3/uL (4.0-10.0)
[2021-12-12 08:00] VITALS: BP 124/79
[2021-12-12 08:13] LABS: CALCIUM LEVEL 7.9 MG/DL (8.5-10.1); CREATININE FOR GFR 6.24 MG/DL (0.70-1.30); GLOMERULAR FILTRATION RATE 9.8 (>56); POTASSIUM SERUM 4.3 MEQ/L (3.5-5.1)
[2021-12-12] MEDS: SILVER SULFADIAZINE 1% CR 400 GM JAR TOP SCH ×2 (11:51→19:49)
[2021-12-12] MEDS: DARBEPOETIN 100 MCG/0.5 ML *DIALYSIS* SYRINGE (J0882) IV SCH (12:54)
[2021-12-12] MEDS: IRON SUCROSE 100MG 5ML VIAL (J1756 PER 1MG) IV SCH (15:10)
[2021-12-12 18:00] VITALS: BP 126/89
[2021-12-12] MEDS: RAMELTEON 8 MG TAB (ROZEREM) PO PRN (20:17)
[2021-12-12] MEDS: LEVEMIR (INSULIN DETEMIR) 1 UNITS/0.01ML SC SCH (20:17)
[2021-12-12] MEDS: FIDAXOMICIN 200 MG TAB (DIFICID) PO SCH (20:17)
[2021-12-13] MEDS: SODIUM CHLORIDE 0.9% INJ 10 ML SYR IV SCH ×2 (05:00→18:17)
[2021-12-13] MEDS: SUCRALFATE 1 GM TAB PO SCH ×3 (05:00→21:47)
[2021-12-13 05:34] VITALS: BP 108/60
[2021-12-13 08:00] VITALS: BP 132/83
[2021-12-13] MEDS: HumaLOG INSULIN (NovoLOG) PER UNIT SC SCH ×3 (08:43→18:18)
[2021-12-13] MEDS: allopurinoL 100 MG TAB PO SCH (08:43)
[2021-12-13] MEDS: METOPROLOL TARTRATE 100MG TAB PO SCH ×2 (08:43→21:00)
[2021-12-13] MEDS: CALCITRIOL 0.25 MCG CAP (S0169) PO SCH (08:44)
[2021-12-13] MEDS: FIDAXOMICIN 200 MG TAB (DIFICID) PO SCH ×2 (08:44→21:47)
[2021-12-13] MEDS: PANTOPRAZOLE 40MG TAB (PROTONIX) PO SCH (08:44)
[2021-12-13] MEDS: SILVER SULFADIAZINE 1% CR 400 GM JAR TOP SCH (08:44)
[2021-12-13] MEDS: PERCOCET 5MG/325MG TAB PO PRN ×2 (09:29→10:00)
[2021-12-13 14:00] VITALS: BP 95/62
[2021-12-13 15:20] VITALS: BP 90/50
[2021-12-14] MEDS: FIDAXOMICIN 200 MG TAB (DIFICID) PO SCH ×2 (05:42→21:16)
[2021-12-14] MEDS: SUCRALFATE 1 GM TAB PO SCH ×3 (05:43→21:16)
[2021-12-14] MEDS: CALCITRIOL 0.25 MCG CAP (S0169) PO SCH (05:43)
[2021-12-14] MEDS: SODIUM CHLORIDE 0.9% INJ 10 ML SYR IV SCH ×2 (05:43→18:41)
[2021-12-14] MEDS: PANTOPRAZOLE 40MG TAB (PROTONIX) PO SCH (05:43)
[2021-12-14] MEDS: allopurinoL 100 MG TAB PO SCH (05:43)
[2021-12-14 06:03] VITALS: BP 100/56
[2021-12-14] MEDS ORDERED: SODIUM CHLORIDE 0.9% 1000ML IV PRN (07:15)
[2021-12-14] MEDS: METOPROLOL TARTRATE 100MG TAB PO SCH ×2 (08:38→21:17)
[2021-12-14] MEDS: HumaLOG INSULIN (NovoLOG) PER UNIT SC SCH ×3 (08:38→17:30)
[2021-12-14] MEDS: IRON SUCROSE 100MG 5ML VIAL (J1756 PER 1MG) IV SCH (15:04)
[2021-12-14 21:00] VITALS: BP 115/74
[2021-12-14] MEDS: RAMELTEON 8 MG TAB (ROZEREM) PO PRN (21:31)
[2021-12-14] MEDS: PERCOCET 5MG/325MG TAB PO PRN (21:32)
[2021-12-15 04:43] VITALS: BP 110/69
[2021-12-15] MEDS: SUCRALFATE 1 GM TAB PO SCH ×3 (05:22→22:23)
[2021-12-15] MEDS: SODIUM CHLORIDE 0.9% INJ 10 ML SYR IV SCH ×2 (05:22→17:45)
[2021-12-15 06:58] LABS: HEMATOCRIT 30.6 % (42.0-52.0); HEMOGLOBIN 9.2 g/dl (13.5-17.5); MEAN CORPUSCULAR HEMOGLOBIN 30.9 pg (27.0-33.0); MEAN CORPUSCULAR HGB CONC 30.1 g/dl (32.0-36.5); MEAN CORPUSCULAR VOLUME 102.7 fl (80.0-96.0); PLATELET COUNT, AUTOMATED 211 10^3/uL (150-450); RED BLOOD COUNT 2.98 10^6/uL (4.30-6.10); WHITE BLOOD COUNT 6.5 10^3/uL (4.0-10.0)
[2021-12-15 07:26] LABS: CALCIUM LEVEL 7.7 MG/DL (8.5-10.1); CREATININE FOR GFR 4.01 MG/DL (0.70-1.30); GLOMERULAR FILTRATION RATE 16.4 (>56); POTASSIUM SERUM 4.8 MEQ/L (3.5-5.1)
[2021-12-15] MEDS: HumaLOG INSULIN (NovoLOG) PER UNIT SC SCH ×3 (07:30→17:14)
[2021-12-15] MEDS: CALCITRIOL 0.25 MCG CAP (S0169) PO SCH (08:18)
[2021-12-15] MEDS: FIDAXOMICIN 200 MG TAB (DIFICID) PO SCH ×2 (08:18→22:23)
[2021-12-15] MEDS: PANTOPRAZOLE 40MG TAB (PROTONIX) PO SCH (08:18)
[2021-12-15] MEDS: allopurinoL 100 MG TAB PO SCH (08:18)
[2021-12-15] MEDS: METOPROLOL TARTRATE 100MG TAB PO SCH ×2 (08:19→22:24)
[2021-12-15 14:00] VITALS: BP 93/47
[2021-12-15 19:16] VITALS: BP 92/49
[2021-12-15] MEDS: RAMELTEON 8 MG TAB (ROZEREM) PO PRN (22:23)
[2021-12-16 06:00] VITALS: BP 120/64
[2021-12-16] MEDS: SODIUM CHLORIDE 0.9% INJ 10 ML SYR IV SCH ×2 (06:32→18:41)
[2021-12-16] MEDS: FIDAXOMICIN 200 MG TAB (DIFICID) PO SCH ×2 (06:32→20:35)
[2021-12-16] MEDS: allopurinoL 100 MG TAB PO SCH (06:33)
[2021-12-16] MEDS: CALCITRIOL 0.25 MCG CAP (S0169) PO SCH (06:33)
[2021-12-16] MEDS: SUCRALFATE 1 GM TAB PO SCH ×3 (06:33→20:36)
[2021-12-16] MEDS: PANTOPRAZOLE 40MG TAB (PROTONIX) PO SCH (06:33)
[2021-12-16] MEDS ORDERED: SODIUM CHLORIDE 0.9% 1000ML IV PRN (07:00)
[2021-12-16] MEDS: METOPROLOL TARTRATE 100MG TAB PO SCH ×2 (08:26→20:35)
[2021-12-16] MEDS: IRON SUCROSE 100MG 5ML VIAL (J1756 PER 1MG) IV SCH (11:30)
[2021-12-16] MEDS: HumaLOG INSULIN (NovoLOG) PER UNIT SC SCH ×2 (12:00→18:42)
[2021-12-16] MEDS: RAMELTEON 8 MG TAB (ROZEREM) PO PRN (20:35)
[2021-12-16 21:28] VITALS: BP 93/66
[2021-12-17] MEDS: SODIUM CHLORIDE 0.9% INJ 10 ML SYR IV SCH ×2 (05:24→17:28)
[2021-12-17] MEDS: SUCRALFATE 1 GM TAB PO SCH ×3 (05:24→20:07)
[2021-12-17 06:00] VITALS: BP 122/68
[2021-12-17] MEDS: METOPROLOL TARTRATE 100MG TAB PO SCH ×2 (09:41→20:07)
[2021-12-17] MEDS: CALCITRIOL 0.25 MCG CAP (S0169) PO SCH (09:41)
[2021-12-17] MEDS: allopurinoL 100 MG TAB PO SCH (09:41)
[2021-12-17] MEDS: PANTOPRAZOLE 40MG TAB (PROTONIX) PO SCH (09:41)
[2021-12-17] MEDS: FIDAXOMICIN 200 MG TAB (DIFICID) PO SCH ×2 (09:41→20:06)
[2021-12-17] MEDS: HumaLOG INSULIN (NovoLOG) PER UNIT SC SCH ×3 (12:00→17:29)
[2021-12-17 22:00] VITALS: BP 146/83
[2021-12-18] MEDS: SUCRALFATE 1 GM TAB PO SCH ×3 (05:07→21:27)
[2021-12-18] MEDS: SODIUM CHLORIDE 0.9% INJ 10 ML SYR IV SCH ×2 (05:07→17:11)
[2021-12-18 06:00] VITALS: BP 137/68
[2021-12-18] MEDS: CALCITRIOL 0.25 MCG CAP (S0169) PO SCH (09:20)
[2021-12-18] MEDS: FIDAXOMICIN 200 MG TAB (DIFICID) PO SCH ×2 (09:21→21:26)
[2021-12-18] MEDS: PANTOPRAZOLE 40MG TAB (PROTONIX) PO SCH (09:21)
[2021-12-18] MEDS: allopurinoL 100 MG TAB PO SCH (09:21)
[2021-12-18] MEDS: METOPROLOL TARTRATE 100MG TAB PO SCH ×2 (09:22→21:27)
[2021-12-18] MEDS: HumaLOG INSULIN (NovoLOG) PER UNIT SC SCH ×2 (12:29→17:15)
[2021-12-19 05:49] VITALS: BP 116/60
[2021-12-19] MEDS: FIDAXOMICIN 200 MG TAB (DIFICID) PO SCH ×2 (06:09→21:39)
[2021-12-19] MEDS: allopurinoL 100 MG TAB PO SCH (06:09)
[2021-12-19] MEDS: METOPROLOL TARTRATE 100MG TAB PO SCH ×2 (06:09→21:40)
[2021-12-19] MEDS: SUCRALFATE 1 GM TAB PO SCH ×3 (06:09→21:39)
[2021-12-19] MEDS: PANTOPRAZOLE 40MG TAB (PROTONIX) PO SCH (06:10)
[2021-12-19] MEDS: SODIUM CHLORIDE 0.9% INJ 10 ML SYR IV SCH ×2 (06:10→18:26)
[2021-12-19] MEDS: CALCITRIOL 0.25 MCG CAP (S0169) PO SCH (06:10)
[2021-12-19 07:06] LABS: MEAN CORPUSCULAR HEMOGLOBIN 30.4 pg (27.0-33.0); MEAN CORPUSCULAR HGB CONC 30.3 g/dl (32.0-36.5); MEAN CORPUSCULAR VOLUME 100.3 fl (80.0-96.0); PLATELET COUNT, AUTOMATED 293 10^3/uL (150-450); RED BLOOD COUNT 3.29 10^6/uL (4.30-6.10); WHITE BLOOD COUNT 6.6 10^3/uL (4.0-10.0)
[2021-12-19 07:21] LABS: CALCIUM LEVEL 8.5 MG/DL (8.5-10.1); CREATININE FOR GFR 7.28 MG/DL (0.70-1.30); GLOMERULAR FILTRATION RATE 8.2 (>56); POTASSIUM SERUM 5.4 MEQ/L (3.5-5.1)
[2021-12-19] MEDS ORDERED: LIDOCAINE 1% SDV 5ML VIAL SC PRN (10:55)
[2021-12-19] MEDS ORDERED: SODIUM CHLORIDE 0.9% 1000ML IV PRN (10:55)
[2021-12-19] MEDS: HumaLOG INSULIN (NovoLOG) PER UNIT SC SCH ×2 (11:12→18:26)
[2021-12-19] MEDS: DARBEPOETIN 100 MCG/0.5 ML *DIALYSIS* SYRINGE (J0882) IV SCH (12:06)
[2021-12-19] MEDS: IRON SUCROSE 100MG 5ML VIAL (J1756 PER 1MG) IV SCH (13:01)
[2021-12-19 20:49] VITALS: BP 142/71
[2021-12-20] VITALS (10 sets, daily range): BP systolic 106–142; BP diastolic 61–83
[2021-12-20] MEDS: SODIUM CHLORIDE 0.9% INJ 10 ML SYR IV SCH ×2 (06:00→18:24)
[2021-12-20] MEDS: SUCRALFATE 1 GM TAB PO SCH ×3 (06:00→20:45)
[2021-12-20] MEDS ORDERED: dexameTHASONE 4 MG/ML 1ML VIAL (J1100 PER 1MG) As Ordered ONE (07:26)
[2021-12-20] MEDS ORDERED: propofoL 200 MG/20 ML VIAL As Ordered ONE (07:26)
[2021-12-20] MEDS ORDERED: LIDOCAINE 2% 100MG/5ML SDV (FOR ANES.) As Ordered ONE (07:26)
[2021-12-20] MEDS ORDERED: fentaNYL 100 MCG/2 ML INJECTION As Ordered ONE (07:27)
[2021-12-20] MEDS ORDERED: MIDAZOLAM INJ 2MG/2ML VIAL (J2250 PER 1MG) As Ordered ONE (07:27)
[2021-12-20] MEDS ORDERED: ceFAZolin 1GM VIAL (J0690 PER 500MG) As Ordered ONE (07:35)
[2021-12-20] MEDS ORDERED: LIDOCAINE W/EPINEPHRINE 1% 20ML VIAL As Ordered ONE (07:49)
[2021-12-20] MEDS ORDERED: ceFAZolin 2 GM/D5W 50 ML IV BAG (J0690 PER 500MG) As Ordered ONE (07:53)
[2021-12-20] MEDS ORDERED: KETAMINE HCL 200 MG/20 ML VIAL As Ordered ONE (07:58)
[2021-12-20] MEDS ORDERED: ACETAMINOPHEN 1000MG 100ML IV BTL (OFIRMEV) (J0131 PER 10MG) As Ordered ONE (08:13)
[2021-12-20] MEDS ORDERED: ONDANSETRON 4MG/2ML VIAL As Ordered ONE (08:30)
[2021-12-20] MEDS ORDERED: ONDANSETRON 4MG/2ML VIAL IV PRN (09:10)
[2021-12-20] MEDS ORDERED: NS 1,000 ML IV SCH (09:10)
[2021-12-20] MEDS ORDERED: ACETAMINOPHEN TAB 650MG DOSE (2X325MG) PO PRN (09:15)
[2021-12-20] MEDS: FIDAXOMICIN 200 MG TAB (DIFICID) PO SCH ×2 (10:10→20:44)
[2021-12-20] MEDS: METOPROLOL TARTRATE 100MG TAB PO SCH ×2 (10:12→20:45)
[2021-12-20] MEDS: CALCITRIOL 0.25 MCG CAP (S0169) PO SCH (10:12)
[2021-12-20] MEDS: allopurinoL 100 MG TAB PO SCH (10:12)
[2021-12-20] MEDS: PANTOPRAZOLE 40MG TAB (PROTONIX) PO SCH (10:12)
[2021-12-20 10:22] LABS: BASO # 0.1 10^3/uL (0.0-0.2); BASO % 1.2 % (0.0-1.0); EOS # 0.2 10^3/uL (0.0-0.5); HEMATOCRIT 33.7 % (42.0-52.0); HEMOGLOBIN 10.4 g/dl (13.5-17.5); LYMPH # 2.6 10^3/uL (1.5-5.0); LYMPH % 44.9 % (24.0-44.0); MEAN CORPUSCULAR HEMOGLOBIN 30.2 pg (27.0-33.0); MEAN CORPUSCULAR HGB CONC 30.9 g/dl (32.0-36.5); MONO # 0.7 10^3/uL (0.0-0.8); MONO % 11.5 % (2.0-8.0); NEUTROPHILS # 2.2 10^3/uL (1.5-8.5); NEUTROPHILS % 38.7 % (36.0-66.0); PLATELET COUNT, AUTOMATED 287 10^3/uL (150-450); RED BLOOD COUNT 3.44 10^6/uL (4.30-6.10); WHITE BLOOD COUNT 5.7 10^3/uL (4.0-10.0)
[2021-12-20 10:47] LABS: CALCIUM LEVEL 8.3 MG/DL (8.5-10.1); CREATININE FOR GFR 5.05 MG/DL (0.70-1.30); GLOMERULAR FILTRATION RATE 12.6 (>56); POTASSIUM SERUM 4.6 MEQ/L (3.5-5.1)
[2021-12-20] MEDS: SODIUM CHLORIDE 0.9% INJ 10 ML SYR IV PRN (11:17)
[2021-12-20] MEDS: HumaLOG INSULIN (NovoLOG) PER UNIT SC SCH ×2 (12:26→18:23)
[2021-12-21 02:00] VITALS: BP 134/76
[2021-12-21] MEDS: SUCRALFATE 1 GM TAB PO SCH ×3 (05:07→21:23)
[2021-12-21] MEDS: allopurinoL 100 MG TAB PO SCH (05:07)
[2021-12-21] MEDS: FIDAXOMICIN 200 MG TAB (DIFICID) PO SCH ×2 (05:07→21:23)
[2021-12-21] MEDS: PANTOPRAZOLE 40MG TAB (PROTONIX) PO SCH (05:07)
[2021-12-21] MEDS: CALCITRIOL 0.25 MCG CAP (S0169) PO SCH (05:08)
[2021-12-21] MEDS: METOPROLOL TARTRATE 100MG TAB PO SCH ×2 (05:09→21:24)
[2021-12-21 05:10] VITALS: BP 124/67
[2021-12-21] MEDS: SODIUM CHLORIDE 0.9% INJ 10 ML SYR IV SCH ×2 (05:10→17:35)
[2021-12-21] MEDS ORDERED: SODIUM CHLORIDE 0.9% 1000ML IV PRN (06:00)
[2021-12-21 06:23] LABS: BASO # 0.1 10^3/uL (0.0-0.2); BASO % 1.1 % (0.0-1.0); EOS # 0.2 10^3/uL (0.0-0.5); EOS % 3.5 % (0.0-3.0); HEMATOCRIT 32.5 % (42.0-52.0); HEMOGLOBIN 10.1 g/dl (13.5-17.5); LYMPH # 2.5 10^3/uL (1.5-5.0); LYMPH % 39.5 % (24.0-44.0); MEAN CORPUSCULAR HEMOGLOBIN 30.9 pg (27.0-33.0); MEAN CORPUSCULAR HGB CONC 31.1 g/dl (32.0-36.5); MEAN CORPUSCULAR VOLUME 99.4 fl (80.0-96.0); MONO # 0.8 10^3/uL (0.0-0.8); MONO % 12.5 % (2.0-8.0); NEUTROPHILS # 2.6 10^3/uL (1.5-8.5); NEUTROPHILS % 42.3 % (36.0-66.0); PLATELET COUNT, AUTOMATED 289 10^3/uL (150-450); RED BLOOD COUNT 3.27 10^6/uL (4.30-6.10); WHITE BLOOD COUNT 6.2 10^3/uL (4.0-10.0)
[2021-12-21 06:38] LABS: ALBUMIN 1.9 GM/DL (3.2-5.2); CALCIUM LEVEL 8.2 MG/DL (8.5-10.1); CREATININE FOR GFR 6.26 MG/DL (0.70-1.30); GLOMERULAR FILTRATION RATE 9.8 (>56); PHOSPHORUS LEVEL 1.6 MG/DL (2.5-4.9); POTASSIUM SERUM 4.6 MEQ/L (3.5-5.1)
[2021-12-21 09:44] VITALS: BP 124/67
[2021-12-21] MEDS: HumaLOG INSULIN (NovoLOG) PER UNIT SC SCH ×3 (12:03→23:13)
[2021-12-21] MEDS: IRON SUCROSE 100MG 5ML VIAL (J1756 PER 1MG) IV SCH (12:32)
[2021-12-22 00:15] VITALS: O2SAT 96
[2021-12-22] MEDS: SODIUM CHLORIDE 0.9% INJ 10 ML SYR IV SCH ×2 (05:39→16:56)
[2021-12-22] MEDS: SUCRALFATE 1 GM TAB PO SCH ×3 (05:39→22:24)
[2021-12-22 06:00] VITALS: BP 137/80
[2021-12-22 06:34] LABS: BASO # 0.1 10^3/uL (0.0-0.2); BASO % 1.5 % (0.0-1.0); EOS # 0.2 10^3/uL (0.0-0.5); EOS % 3.2 % (0.0-3.0); HEMATOCRIT 33.4 % (42.0-52.0); HEMOGLOBIN 10.1 g/dl (13.5-17.5); LYMPH # 2.4 10^3/uL (1.5-5.0); LYMPH % 39.9 % (24.0-44.0); MEAN CORPUSCULAR HEMOGLOBIN 29.9 pg (27.0-33.0); MEAN CORPUSCULAR HGB CONC 30.2 g/dl (32.0-36.5); MEAN CORPUSCULAR VOLUME 98.8 fl (80.0-96.0); MONO # 0.8 10^3/uL (0.0-0.8); MONO % 13.8 % (2.0-8.0); NEUTROPHILS # 2.4 10^3/uL (1.5-8.5); NEUTROPHILS % 40.6 % (36.0-66.0); PLATELET COUNT, AUTOMATED 314 10^3/uL (150-450); RED BLOOD COUNT 3.38 10^6/uL (4.30-6.10); WHITE BLOOD COUNT 5.9 10^3/uL (4.0-10.0)
[2021-12-22] MEDS ORDERED: ACETAMINOPHEN 325 MG TAB PO ONE (07:00)
[2021-12-22 07:14] LABS: CALCIUM LEVEL 7.8 MG/DL (8.5-10.1); CREATININE FOR GFR 4.67 MG/DL (0.70-1.30); GLOMERULAR FILTRATION RATE 13.8 (>56); MAGNESIUM LEVEL 1.9 MG/DL (1.8-2.4); PHOSPHORUS LEVEL 1.8 MG/DL (2.5-4.9); POTASSIUM SERUM 4.1 MEQ/L (3.5-5.1)
[2021-12-22] MEDS: FIDAXOMICIN 200 MG TAB (DIFICID) PO SCH ×2 (08:15→22:24)
[2021-12-22] MEDS: METOPROLOL TARTRATE 100MG TAB PO SCH ×2 (08:16→22:25)
[2021-12-22] MEDS: PANTOPRAZOLE 40MG TAB (PROTONIX) PO SCH (08:16)
[2021-12-22] MEDS: allopurinoL 100 MG TAB PO SCH (08:16)
[2021-12-22] MEDS: CALCITRIOL 0.25 MCG CAP (S0169) PO SCH (08:16)
[2021-12-22] MEDS: HumaLOG INSULIN (NovoLOG) PER UNIT SC SCH ×3 (12:00→21:00)
[2021-12-23] MEDS: SUCRALFATE 1 GM TAB PO SCH ×3 (05:54→22:20)
[2021-12-23] MEDS: FIDAXOMICIN 200 MG TAB (DIFICID) PO SCH ×2 (05:54→22:20)
[2021-12-23] MEDS: CALCITRIOL 0.25 MCG CAP (S0169) PO SCH (05:54)
[2021-12-23] MEDS: allopurinoL 100 MG TAB PO SCH (05:54)
[2021-12-23] MEDS: PANTOPRAZOLE 40MG TAB (PROTONIX) PO SCH (05:54)
[2021-12-23] MEDS: SODIUM CHLORIDE 0.9% INJ 10 ML SYR IV SCH ×2 (05:56→17:39)
[2021-12-23] MEDS: METOPROLOL TARTRATE 100MG TAB PO SCH ×2 (05:57→22:20)
[2021-12-23 06:00] VITALS: BP 126/76
[2021-12-23] MEDS ORDERED: SODIUM CHLORIDE 0.9% 1000ML IV PRN (06:00)
[2021-12-23 07:07] LABS: BASO # 0.1 10^3/uL (0.0-0.2); BASO % 1.3 % (0.0-1.0); EOS # 0.2 10^3/uL (0.0-0.5); EOS % 3.6 % (0.0-3.0); HEMATOCRIT 34.1 % (42.0-52.0); HEMOGLOBIN 10.4 g/dl (13.5-17.5); LYMPH # 2.3 10^3/uL (1.5-5.0); LYMPH % 38.2 % (24.0-44.0); MEAN CORPUSCULAR HEMOGLOBIN 30.3 pg (27.0-33.0); MEAN CORPUSCULAR HGB CONC 30.5 g/dl (32.0-36.5); MEAN CORPUSCULAR VOLUME 99.4 fl (80.0-96.0); MONO # 0.9 10^3/uL (0.0-0.8); MONO % 15.2 % (2.0-8.0); NEUTROPHILS # 2.4 10^3/uL (1.5-8.5); NEUTROPHILS % 40.5 % (36.0-66.0); PLATELET COUNT, AUTOMATED 304 10^3/uL (150-450); RED BLOOD COUNT 3.43 10^6/uL (4.30-6.10)
[2021-12-23 07:38] LABS: CALCIUM LEVEL 8.2 MG/DL (8.5-10.1); CREATININE FOR GFR 6.19 MG/DL (0.70-1.30); GLOMERULAR FILTRATION RATE 9.9 (>56); POTASSIUM SERUM 4.6 MEQ/L (3.5-5.1)
[2021-12-23 07:39] LABS: ALBUMIN 2.1 GM/DL (3.2-5.2); MAGNESIUM LEVEL 2.2 MG/DL (1.8-2.4)
[2021-12-23] MEDS: HumaLOG INSULIN (NovoLOG) PER UNIT SC SCH ×3 (12:00→21:00)
[2021-12-23] MEDS: PERCOCET 5MG/325MG TAB PO PRN (13:53)
[2021-12-23] MEDS: IRON SUCROSE 100MG 5ML VIAL (J1756 PER 1MG) IV SCH (13:55)
[2021-12-23] MEDS: HEPARIN SOD (PORCINE) 5000UNITS/ML 1ML VIAL/SYRINGE SQ SCH ×2 (14:00→22:21)
[2021-12-23] MEDS ORDERED: HEPARIN SOD (PORCINE) 5000UNITS/ML 1ML VIAL/SYRINGE SQ SCH (21:00)
[2021-12-24 04:48] VITALS: BP 147/73
[2021-12-24] MEDS: SUCRALFATE 1 GM TAB PO SCH ×3 (05:48→21:38)
[2021-12-24] MEDS: SODIUM CHLORIDE 0.9% INJ 10 ML SYR IV SCH ×2 (05:49→18:13)
[2021-12-24] MEDS: HEPARIN SOD (PORCINE) 5000UNITS/ML 1ML VIAL/SYRINGE SQ SCH ×3 (05:50→21:34)
[2021-12-24 07:18] LABS: BASO # 0.1 10^3/uL (0.0-0.2); BASO % 1.3 % (0.0-1.0); EOS # 0.2 10^3/uL (0.0-0.5); HEMATOCRIT 33.7 % (42.0-52.0); HEMOGLOBIN 10.5 g/dl (13.5-17.5); LYMPH # 2.3 10^3/uL (1.5-5.0); LYMPH % 38.6 % (24.0-44.0); MEAN CORPUSCULAR HEMOGLOBIN 31.2 pg (27.0-33.0); MEAN CORPUSCULAR HGB CONC 31.2 g/dl (32.0-36.5); MONO # 0.8 10^3/uL (0.0-0.8); MONO % 12.9 % (2.0-8.0); NEUTROPHILS # 2.6 10^3/uL (1.5-8.5); NEUTROPHILS % 42.4 % (36.0-66.0); PLATELET COUNT, AUTOMATED 314 10^3/uL (150-450); RED BLOOD COUNT 3.37 10^6/uL (4.30-6.10)
[2021-12-24 07:49] LABS: CREATININE FOR GFR 4.42 MG/DL (0.70-1.30); GLOMERULAR FILTRATION RATE 14.7 (>56); PHOSPHORUS LEVEL 2.7 MG/DL (2.5-4.9); POTASSIUM SERUM 4.5 MEQ/L (3.5-5.1)
[2021-12-24] MEDS: CALCITRIOL 0.25 MCG CAP (S0169) PO SCH (09:27)
[2021-12-24] MEDS: PANTOPRAZOLE 40MG TAB (PROTONIX) PO SCH (09:27)
[2021-12-24] MEDS: FIDAXOMICIN 200 MG TAB (DIFICID) PO SCH ×2 (09:27→21:38)
[2021-12-24] MEDS: allopurinoL 100 MG TAB PO SCH (09:27)
[2021-12-24] MEDS: METOPROLOL TARTRATE 100MG TAB PO SCH ×2 (09:29→21:38)
[2021-12-24] MEDS: HumaLOG INSULIN (NovoLOG) PER UNIT SC SCH ×3 (13:55→21:00)
[2021-12-24 18:08] VITALS: BP 139/83
[2021-12-25 06:00] VITALS: BP 137/80
[2021-12-25] MEDS: SUCRALFATE 1 GM TAB PO SCH ×3 (06:22→21:26)
[2021-12-25] MEDS: SODIUM CHLORIDE 0.9% INJ 10 ML SYR IV SCH ×2 (06:23→17:27)
[2021-12-25] MEDS: HEPARIN SOD (PORCINE) 5000UNITS/ML 1ML VIAL/SYRINGE SQ SCH ×3 (06:23→21:25)
[2021-12-25 06:51] LABS: BASO # 0.1 10^3/uL (0.0-0.2); BASO % 1.3 % (0.0-1.0); EOS # 0.2 10^3/uL (0.0-0.5); EOS % 3.9 % (0.0-3.0); HEMATOCRIT 34.6 % (42.0-52.0); HEMOGLOBIN 10.6 g/dl (13.5-17.5); LYMPH # 2.1 10^3/uL (1.5-5.0); MEAN CORPUSCULAR HEMOGLOBIN 30.5 pg (27.0-33.0); MEAN CORPUSCULAR HGB CONC 30.6 g/dl (32.0-36.5); MEAN CORPUSCULAR VOLUME 99.4 fl (80.0-96.0); MONO # 0.7 10^3/uL (0.0-0.8); MONO % 11.4 % (2.0-8.0); NEUTROPHILS % 48.1 % (36.0-66.0); PLATELET COUNT, AUTOMATED 320 10^3/uL (150-450); RED BLOOD COUNT 3.48 10^6/uL (4.30-6.10); WHITE BLOOD COUNT 6.1 10^3/uL (4.0-10.0)
[2021-12-25 07:23] LABS: CALCIUM LEVEL 8.3 MG/DL (8.5-10.1); CREATININE FOR GFR 6.26 MG/DL (0.70-1.30); GLOMERULAR FILTRATION RATE 9.8 (>56); POTASSIUM SERUM 4.3 MEQ/L (3.5-5.1)
[2021-12-25] MEDS: FIDAXOMICIN 200 MG TAB (DIFICID) PO SCH ×2 (10:39→21:26)
[2021-12-25] MEDS: PANTOPRAZOLE 40MG TAB (PROTONIX) PO SCH (10:39)
[2021-12-25] MEDS: CALCITRIOL 0.25 MCG CAP (S0169) PO SCH (10:40)
[2021-12-25] MEDS: allopurinoL 100 MG TAB PO SCH (10:40)
[2021-12-25] MEDS: METOPROLOL TARTRATE 100MG TAB PO SCH ×2 (10:40→21:25)
[2021-12-25] MEDS: HumaLOG INSULIN (NovoLOG) PER UNIT SC SCH ×4 (12:36→20:05)
[2021-12-25] MEDS: RAMELTEON 8 MG TAB (ROZEREM) PO PRN (21:37)
[2021-12-26] MEDS: SODIUM CHLORIDE 0.9% INJ 10 ML SYR IV SCH ×2 (05:30→18:36)
[2021-12-26] MEDS: HEPARIN SOD (PORCINE) 5000UNITS/ML 1ML VIAL/SYRINGE SQ SCH ×3 (05:31→20:29)
[2021-12-26] MEDS: SUCRALFATE 1 GM TAB PO SCH ×3 (05:31→20:29)
[2021-12-26] MEDS: METOPROLOL TARTRATE 100MG TAB PO SCH ×2 (05:32→20:31)
[2021-12-26] MEDS: FIDAXOMICIN 200 MG TAB (DIFICID) PO SCH (05:32)
[2021-12-26] MEDS: CALCITRIOL 0.25 MCG CAP (S0169) PO SCH (05:33)
[2021-12-26] MEDS: allopurinoL 100 MG TAB PO SCH (05:33)
[2021-12-26] MEDS: PANTOPRAZOLE 40MG TAB (PROTONIX) PO SCH (05:33)
[2021-12-26 06:00] VITALS: BP 112/58
[2021-12-26] MEDS ORDERED: SODIUM CHLORIDE 0.9% 1000ML IV PRN (06:20)
[2021-12-26 11:18] LABS: BASO # 0.1 10^3/uL (0.0-0.2); BASO % 1.2 % (0.0-1.0); EOS # 0.2 10^3/uL (0.0-0.5); EOS % 3.2 % (0.0-3.0); HEMATOCRIT 33.1 % (42.0-52.0); HEMOGLOBIN 10.2 g/dl (13.5-17.5); LYMPH # 2.5 10^3/uL (1.5-5.0); LYMPH % 37.5 % (24.0-44.0); MEAN CORPUSCULAR HGB CONC 30.8 g/dl (32.0-36.5); MEAN CORPUSCULAR VOLUME 100.6 fl (80.0-96.0); MONO # 0.8 10^3/uL (0.0-0.8); MONO % 11.8 % (2.0-8.0); NEUTROPHILS % 45.2 % (36.0-66.0); PLATELET COUNT, AUTOMATED 270 10^3/uL (150-450); RED BLOOD COUNT 3.29 10^6/uL (4.30-6.10); WHITE BLOOD COUNT 6.6 10^3/uL (4.0-10.0)
[2021-12-26 11:38] LABS: ALBUMIN 1.9 GM/DL (3.2-5.2); CALCIUM LEVEL 8.2 MG/DL (8.5-10.1); CREATININE FOR GFR 7.56 MG/DL (0.70-1.30); GLOMERULAR FILTRATION RATE 7.9 (>56); MAGNESIUM LEVEL 2.1 MG/DL (1.8-2.4); PHOSPHORUS LEVEL 3.2 MG/DL (2.5-4.9); POTASSIUM SERUM 4.5 MEQ/L (3.5-5.1)
[2021-12-26] MEDS: HumaLOG INSULIN (NovoLOG) PER UNIT SC SCH ×3 (12:00→20:30)
[2021-12-26] MEDS: DARBEPOETIN 100 MCG/0.5 ML *DIALYSIS* SYRINGE (J0882) IV SCH (12:56)
[2021-12-27] MEDS: HEPARIN SOD (PORCINE) 5000UNITS/ML 1ML VIAL/SYRINGE SQ SCH ×3 (05:40→21:01)
[2021-12-27] MEDS: SUCRALFATE 1 GM TAB PO SCH ×3 (05:40→21:02)
[2021-12-27] MEDS: SODIUM CHLORIDE 0.9% INJ 10 ML SYR IV SCH ×2 (05:41→18:22)
[2021-12-27 06:00] VITALS: BP 126/69
[2021-12-27 06:51] LABS: BASO # 0.1 10^3/uL (0.0-0.2); BASO % 1.4 % (0.0-1.0); EOS # 0.2 10^3/uL (0.0-0.5); EOS % 3.3 % (0.0-3.0); HEMATOCRIT 33.8 % (42.0-52.0); HEMOGLOBIN 10.3 g/dl (13.5-17.5); MEAN CORPUSCULAR HEMOGLOBIN 30.1 pg (27.0-33.0); MEAN CORPUSCULAR HGB CONC 30.5 g/dl (32.0-36.5); MEAN CORPUSCULAR VOLUME 98.8 fl (80.0-96.0); MONO # 0.7 10^3/uL (0.0-0.8); MONO % 12.1 % (2.0-8.0); NEUTROPHILS # 2.5 10^3/uL (1.5-8.5); NEUTROPHILS % 45.7 % (36.0-66.0); PLATELET COUNT, AUTOMATED 311 10^3/uL (150-450); RED BLOOD COUNT 3.42 10^6/uL (4.30-6.10); WHITE BLOOD COUNT 5.5 10^3/uL (4.0-10.0)
[2021-12-27 07:18] LABS: CALCIUM LEVEL 8.2 MG/DL (8.5-10.1); CREATININE FOR GFR 5.07 MG/DL (0.70-1.30); GLOMERULAR FILTRATION RATE 12.5 (>56); MAGNESIUM LEVEL 1.9 MG/DL (1.8-2.4); PHOSPHORUS LEVEL 3.3 MG/DL (2.5-4.9); POTASSIUM SERUM 4.2 MEQ/L (3.5-5.1)
[2021-12-27] MEDS: PERCOCET 5MG/325MG TAB PO PRN (08:01)
[2021-12-27] MEDS: PANTOPRAZOLE 40MG TAB (PROTONIX) PO SCH (09:59)
[2021-12-27] MEDS: METOPROLOL TARTRATE 100MG TAB PO SCH ×2 (09:59→21:02)
[2021-12-27] MEDS: CALCITRIOL 0.25 MCG CAP (S0169) PO SCH (09:59)
[2021-12-27] MEDS: allopurinoL 100 MG TAB PO SCH (10:00)
[2021-12-27] MEDS: HumaLOG INSULIN (NovoLOG) PER UNIT SC SCH ×3 (12:00→21:00)
[2021-12-28] MEDS: HEPARIN SOD (PORCINE) 5000UNITS/ML 1ML VIAL/SYRINGE SQ SCH ×3 (05:56→20:28)
[2021-12-28] MEDS: SODIUM CHLORIDE 0.9% INJ 10 ML SYR IV SCH ×2 (05:56→20:28)
[2021-12-28] MEDS: PANTOPRAZOLE 40MG TAB (PROTONIX) PO SCH (05:57)
[2021-12-28] MEDS: FIDAXOMICIN 200 MG TAB (DIFICID) PO SCH (05:57)
[2021-12-28] MEDS: SUCRALFATE 1 GM TAB PO SCH ×3 (05:57→20:26)
[2021-12-28] MEDS: allopurinoL 100 MG TAB PO SCH (05:58)
[2021-12-28] MEDS: CALCITRIOL 0.25 MCG CAP (S0169) PO SCH (05:58)
[2021-12-28 06:00] VITALS: BP 113/62
[2021-12-28] MEDS: METOPROLOL TARTRATE 100MG TAB PO SCH ×2 (06:02→20:27)
[2021-12-28] MEDS ORDERED: SODIUM CHLORIDE 0.9% 1000ML IV PRN (06:40)
[2021-12-28] MEDS: HumaLOG INSULIN (NovoLOG) PER UNIT SC SCH ×3 (11:43→20:15)
[2021-12-29] VITALS (10 sets, daily range): BP systolic 92–120; BP diastolic 48–70
[2021-12-29] MEDS: SUCRALFATE 1 GM TAB PO SCH ×3 (03:30→21:04)
[2021-12-29] MEDS: HEPARIN SOD (PORCINE) 5000UNITS/ML 1ML VIAL/SYRINGE SQ SCH ×3 (04:48→21:04)
[2021-12-29] MEDS: SODIUM CHLORIDE 0.9% INJ 10 ML SYR IV SCH ×2 (05:08→17:29)
[2021-12-29] MEDS ORDERED: ONDANSETRON 4MG/2ML VIAL As Ordered ONE (07:13)
[2021-12-29] MEDS ORDERED: fentaNYL 100 MCG/2 ML INJECTION As Ordered ONE ×2 (07:13→08:47)
[2021-12-29] MEDS ORDERED: LIDOCAINE 2% 100MG/5ML SDV (FOR ANES.) As Ordered ONE (07:13)
[2021-12-29] MEDS ORDERED: MIDAZOLAM INJ 2MG/2ML VIAL (J2250 PER 1MG) As Ordered ONE (07:13)
[2021-12-29] MEDS ORDERED: dexameTHASONE 4 MG/ML 1ML VIAL (J1100 PER 1MG) As Ordered ONE (07:13)
[2021-12-29] MEDS ORDERED: propofoL 200 MG/20 ML VIAL As Ordered ONE (07:13)
[2021-12-29] MEDS ORDERED: ROCURONIUM BROMIDE 50 MG/5 ML VIAL As Ordered ONE (07:14)
[2021-12-29] MEDS ORDERED: GENTAMICIN SULF 80MG/2ML VIAL As Ordered ONE (07:15)
[2021-12-29] MEDS ORDERED: EPINEPHrine INJ 1 MG/ML 1ML AMP As Ordered ONE (07:15)
[2021-12-29] MEDS ORDERED: METOCLOPRAMIDE INJ 10MG/2ML VIAL (J2765 PER 1) As Ordered ONE (07:50)
[2021-12-29] MEDS ORDERED: ceFAZolin 2 GM/D5W 50 ML IV BAG (J0690 PER 500MG) As Ordered ONE (07:57)
[2021-12-29] MEDS ORDERED: ACETAMINOPHEN 1000MG 100ML IV BTL (OFIRMEV) (J0131 PER 10MG) As Ordered ONE (08:04)
[2021-12-29] MEDS ORDERED: PHENYLephrine 500MCG 5ML (100MCG/ML) SYRINGE As Ordered ONE (08:35)
[2021-12-29] MEDS ORDERED: ePHEDrine SULFATE 25 MG/5 ML(5MG/ML) SYRINGE As Ordered ONE (08:35)
[2021-12-29] MEDS ORDERED: LR 1,000 ML IV SCH (09:30)
[2021-12-29] MEDS ORDERED: fentaNYL 100 MCG/2 ML INJECTION IV PRN (09:30)
[2021-12-29] MEDS ORDERED: oxyCODONE 5MG TAB PO PRN (09:30)
[2021-12-29] MEDS ORDERED: ONDANSETRON 4MG/2ML VIAL IV PRN (09:30)
[2021-12-29] MEDS: CALCITRIOL 0.25 MCG CAP (S0169) PO SCH (10:24)
[2021-12-29] MEDS: PANTOPRAZOLE 40MG TAB (PROTONIX) PO SCH (10:24)
[2021-12-29] MEDS: allopurinoL 100 MG TAB PO SCH (10:25)
[2021-12-29] MEDS: METOPROLOL TARTRATE 100MG TAB PO SCH ×2 (10:26→21:07)
[2021-12-29] MEDS: HumaLOG INSULIN (NovoLOG) PER UNIT SC SCH ×3 (11:37→20:49)
[2021-12-30 02:00] VITALS: BP 96/64
[2021-12-30] MEDS ORDERED: SODIUM CHLORIDE 0.9% 1000ML IV PRN (05:35)
[2021-12-30] MEDS ORDERED: LIDOCAINE 1% SDV 5ML VIAL SC PRN (05:35)
[2021-12-30] MEDS: allopurinoL 100 MG TAB PO SCH (05:44)
[2021-12-30] MEDS: CALCITRIOL 0.25 MCG CAP (S0169) PO SCH (05:44)
[2021-12-30] MEDS: SUCRALFATE 1 GM TAB PO SCH ×3 (05:44→21:32)
[2021-12-30] MEDS: PANTOPRAZOLE 40MG TAB (PROTONIX) PO SCH (05:45)
[2021-12-30] MEDS: METOPROLOL TARTRATE 100MG TAB PO SCH ×2 (05:45→21:34)
[2021-12-30] MEDS: HEPARIN SOD (PORCINE) 5000UNITS/ML 1ML VIAL/SYRINGE SQ SCH ×3 (05:46→21:32)
[2021-12-30] MEDS: FIDAXOMICIN 200 MG TAB (DIFICID) PO SCH ×2 (05:46→21:32)
[2021-12-30] MEDS: SODIUM CHLORIDE 0.9% INJ 10 ML SYR IV SCH ×2 (05:46→17:48)
[2021-12-30 06:00] VITALS: BP 123/76
[2021-12-30 10:00] VITALS: BP 125/76
[2021-12-30] MEDS: HumaLOG INSULIN (NovoLOG) PER UNIT SC SCH ×3 (11:53→21:00)
[2021-12-30 16:40] VITALS: BP 124/72
[2021-12-30] MEDS: PERCOCET 5MG/325MG TAB PO PRN (18:37)
[2021-12-30 21:52] VITALS: BP 139/77
[2021-12-31 06:00] VITALS: BP 128/74
[2021-12-31] MEDS: HEPARIN SOD (PORCINE) 5000UNITS/ML 1ML VIAL/SYRINGE SQ SCH ×3 (06:27→21:51)
[2021-12-31] MEDS: SODIUM CHLORIDE 0.9% INJ 10 ML SYR IV SCH ×2 (06:28→17:11)
[2021-12-31] MEDS: SUCRALFATE 1 GM TAB PO SCH ×3 (06:28→21:50)
[2021-12-31] MEDS: allopurinoL 100 MG TAB PO SCH (09:13)
[2021-12-31] MEDS: CALCITRIOL 0.25 MCG CAP (S0169) PO SCH (09:13)
[2021-12-31] MEDS: FIDAXOMICIN 200 MG TAB (DIFICID) PO SCH ×2 (09:13→21:50)
[2021-12-31] MEDS: PANTOPRAZOLE 40MG TAB (PROTONIX) PO SCH (09:13)
[2021-12-31] MEDS: METOPROLOL TARTRATE 100MG TAB PO SCH ×2 (09:14→21:51)
[2021-12-31] MEDS: PERCOCET 5MG/325MG TAB PO PRN (09:16)
[2021-12-31] MEDS: HumaLOG INSULIN (NovoLOG) PER UNIT SC SCH ×3 (12:04→21:00)
[2021-12-31 14:11] VITALS: BP 123/74
[2021-12-31 22:00] VITALS: BP 123/73
[2022-01-01] MEDS: SUCRALFATE 1 GM TAB PO SCH ×3 (05:16→22:12)
[2022-01-01] MEDS: PERCOCET 5MG/325MG TAB PO PRN (05:17)
[2022-01-01] MEDS: HEPARIN SOD (PORCINE) 5000UNITS/ML 1ML VIAL/SYRINGE SQ SCH ×3 (05:18→22:11)
[2022-01-01] MEDS: SODIUM CHLORIDE 0.9% INJ 10 ML SYR IV SCH ×2 (05:19→17:21)
[2022-01-01 06:00] VITALS: BP 140/78
[2022-01-01] MEDS: PANTOPRAZOLE 40MG TAB (PROTONIX) PO SCH (09:05)
[2022-01-01] MEDS: FIDAXOMICIN 200 MG TAB (DIFICID) PO SCH ×2 (09:05→22:11)
[2022-01-01] MEDS: allopurinoL 100 MG TAB PO SCH (09:05)
[2022-01-01] MEDS: METOPROLOL TARTRATE 100MG TAB PO SCH ×2 (09:05→22:12)
[2022-01-01] MEDS: CALCITRIOL 0.25 MCG CAP (S0169) PO SCH (09:05)
[2022-01-01] MEDS: HumaLOG INSULIN (NovoLOG) PER UNIT SC SCH ×3 (11:47→22:04)
[2022-01-02] MEDS ORDERED: SODIUM CHLORIDE 0.9% 1000ML IV PRN (06:00)
[2022-01-02 06:08] VITALS: BP 125/61
[2022-01-02] MEDS: FIDAXOMICIN 200 MG TAB (DIFICID) PO SCH ×2 (06:13→22:01)
[2022-01-02] MEDS: PANTOPRAZOLE 40MG TAB (PROTONIX) PO SCH (06:13)
[2022-01-02] MEDS: SODIUM CHLORIDE 0.9% INJ 10 ML SYR IV SCH ×2 (06:13→17:41)
[2022-01-02] MEDS: CALCITRIOL 0.25 MCG CAP (S0169) PO SCH (06:13)
[2022-01-02] MEDS: SUCRALFATE 1 GM TAB PO SCH (06:13)
[2022-01-02] MEDS: METOPROLOL TARTRATE 100MG TAB PO SCH ×2 (06:14→22:01)
[2022-01-02] MEDS: allopurinoL 100 MG TAB PO SCH (06:14)
[2022-01-02] MEDS: HEPARIN SOD (PORCINE) 5000UNITS/ML 1ML VIAL/SYRINGE SQ SCH ×3 (06:17→22:01)
[2022-01-02 10:01] LABS: HEPATITIS B CORE ANTIBODY IGM NEGATIVE (NEGATIVE); HEPATITIS B SURFACE ANTIBODY NEGATIVE (POSITIVE); HEPATITIS B SURFACE ANTIGEN NEGATIVE (NEGATIVE)
[2022-01-02] MEDS: DARBEPOETIN 100 MCG/0.5 ML *DIALYSIS* SYRINGE (J0882) IV SCH (11:28)
[2022-01-02] MEDS: HumaLOG INSULIN (NovoLOG) PER UNIT SC SCH ×3 (12:00→21:00)
[2022-01-03] MEDS: HEPARIN SOD (PORCINE) 5000UNITS/ML 1ML VIAL/SYRINGE SQ SCH ×3 (05:44→21:34)
[2022-01-03] MEDS: SODIUM CHLORIDE 0.9% INJ 10 ML SYR IV SCH ×2 (05:44→17:29)
[2022-01-03 05:48] VITALS: BP 126/63
[2022-01-03 06:24] LABS: HEMATOCRIT 34.6 % (42.0-52.0); HEMOGLOBIN 10.6 g/dl (13.5-17.5); MEAN CORPUSCULAR HEMOGLOBIN 30.4 pg (27.0-33.0); MEAN CORPUSCULAR HGB CONC 30.6 g/dl (32.0-36.5); MEAN CORPUSCULAR VOLUME 99.1 fl (80.0-96.0); PLATELET COUNT, AUTOMATED 273 10^3/uL (150-450); RED BLOOD COUNT 3.49 10^6/uL (4.30-6.10); WHITE BLOOD COUNT 6.8 10^3/uL (4.0-10.0)
[2022-01-03 06:47] LABS: CALCIUM LEVEL 8.3 MG/DL (8.5-10.1); CREATININE FOR GFR 5.55 MG/DL (0.70-1.30); GLOMERULAR FILTRATION RATE 11.3 (>56); POTASSIUM SERUM 3.9 MEQ/L (3.5-5.1)
[2022-01-03] MEDS: FIDAXOMICIN 200 MG TAB (DIFICID) PO SCH ×2 (10:02→21:32)
[2022-01-03] MEDS: PANTOPRAZOLE 40MG TAB (PROTONIX) PO SCH (10:02)
[2022-01-03] MEDS: CALCITRIOL 0.25 MCG CAP (S0169) PO SCH (10:02)
[2022-01-03] MEDS: METOPROLOL TARTRATE 100MG TAB PO SCH ×2 (10:03→21:34)
[2022-01-03] MEDS: allopurinoL 100 MG TAB PO SCH (10:03)
[2022-01-03] MEDS: HumaLOG INSULIN (NovoLOG) PER UNIT SC SCH ×3 (12:00→20:59)
[2022-01-03 14:00] VITALS: BP 117/62
[2022-01-03 22:00] VITALS: BP 125/84
[2022-01-03 23:36] VITALS: BP 112/72
[2022-01-04] MEDS: HEPARIN SOD (PORCINE) 5000UNITS/ML 1ML VIAL/SYRINGE SQ SCH ×3 (05:38→22:00)
[2022-01-04] MEDS: CALCITRIOL 0.25 MCG CAP (S0169) PO SCH (05:39)
[2022-01-04] MEDS: allopurinoL 100 MG TAB PO SCH (05:39)
[2022-01-04] MEDS: PANTOPRAZOLE 40MG TAB (PROTONIX) PO SCH (05:39)
[2022-01-04] MEDS: SODIUM CHLORIDE 0.9% INJ 10 ML SYR IV SCH ×2 (05:39→18:00)
[2022-01-04] MEDS: FIDAXOMICIN 200 MG TAB (DIFICID) PO SCH ×2 (05:39→20:36)
[2022-01-04] MEDS: METOPROLOL TARTRATE 100MG TAB PO SCH ×2 (05:41→20:39)
[2022-01-04 06:00] VITALS: BP 151/86
[2022-01-04] MEDS ORDERED: SODIUM CHLORIDE 0.9% 1000ML IV PRN (06:00)
[2022-01-04 06:13] LABS: HEMATOCRIT 39.3 % (42.0-52.0); MEAN CORPUSCULAR HEMOGLOBIN 30.3 pg (27.0-33.0); MEAN CORPUSCULAR HGB CONC 30.5 g/dl (32.0-36.5); MEAN CORPUSCULAR VOLUME 99.2 fl (80.0-96.0); PLATELET COUNT, AUTOMATED 298 10^3/uL (150-450); RED BLOOD COUNT 3.96 10^6/uL (4.30-6.10); WHITE BLOOD COUNT 6.5 10^3/uL (4.0-10.0)
[2022-01-04 06:40] LABS: BILIRUBIN,TOTAL 0.5 MG/DL (0.2-1.0); CALCIUM LEVEL 9.2 MG/DL (8.5-10.1); CREATININE FOR GFR 7.15 MG/DL (0.70-1.30); GLOMERULAR FILTRATION RATE 8.4 (>56); POTASSIUM SERUM 4.8 MEQ/L (3.5-5.1); TOTAL PROTEIN 7.9 GM/DL (6.4-8.2)
[2022-01-04] MEDS: HumaLOG INSULIN (NovoLOG) PER UNIT SC SCH ×3 (12:00→20:40)
[2022-01-04 14:00] VITALS: BP 132/82
[2022-01-05] MEDS: SODIUM CHLORIDE 0.9% INJ 10 ML SYR IV SCH ×2 (05:12→17:45)
[2022-01-05] MEDS: HEPARIN SOD (PORCINE) 5000UNITS/ML 1ML VIAL/SYRINGE SQ SCH ×3 (05:12→22:16)
[2022-01-05 06:00] VITALS: BP 120/68
[2022-01-05 08:07] LABS: CLOSTRIDIUM DIFFICILE PCR NEGATIVE (NEGATIVE)
[2022-01-05] MEDS: PANTOPRAZOLE 40MG TAB (PROTONIX) PO SCH (10:20)
[2022-01-05] MEDS: FIDAXOMICIN 200 MG TAB (DIFICID) PO SCH ×2 (10:20→20:13)
[2022-01-05] MEDS: CALCITRIOL 0.25 MCG CAP (S0169) PO SCH (10:21)
[2022-01-05] MEDS: METOPROLOL TARTRATE 100MG TAB PO SCH ×2 (10:21→20:13)
[2022-01-05] MEDS: allopurinoL 100 MG TAB PO SCH (10:21)
[2022-01-05] MEDS: HumaLOG INSULIN (NovoLOG) PER UNIT SC SCH ×3 (12:00→20:13)
[2022-01-05 13:13] LABS: PERCENT SATURATION 15.8 % (19.7-50.0)
[2022-01-05 13:44] LABS: FOLATE 4.9 NG/ML (>5.4)
[2022-01-05 14:00] VITALS: BP 110/68
[2022-01-05 18:00] VITALS: BP 113/69
[2022-01-06] MEDS: SODIUM CHLORIDE 0.9% INJ 10 ML SYR IV SCH ×2 (05:21→18:30)
[2022-01-06] MEDS: FIDAXOMICIN 200 MG TAB (DIFICID) PO SCH ×2 (05:21→21:25)
[2022-01-06] MEDS: HEPARIN SOD (PORCINE) 5000UNITS/ML 1ML VIAL/SYRINGE SQ SCH ×3 (05:21→21:25)
[2022-01-06] MEDS: allopurinoL 100 MG TAB PO SCH (05:22)
[2022-01-06] MEDS: CALCITRIOL 0.25 MCG CAP (S0169) PO SCH (05:22)
[2022-01-06] MEDS: PANTOPRAZOLE 40MG TAB (PROTONIX) PO SCH (05:22)
[2022-01-06 05:29] VITALS: BP 113/70
[2022-01-06] MEDS ORDERED: SODIUM CHLORIDE 0.9% 1000ML IV PRN (06:00)
[2022-01-06 07:08] LABS: HEMATOCRIT 37.3 % (42.0-52.0); HEMOGLOBIN 11.3 g/dl (13.5-17.5); MEAN CORPUSCULAR HEMOGLOBIN 29.7 pg (27.0-33.0); MEAN CORPUSCULAR HGB CONC 30.3 g/dl (32.0-36.5); MEAN CORPUSCULAR VOLUME 98.2 fl (80.0-96.0); PLATELET COUNT, AUTOMATED 329 10^3/uL (150-450); WHITE BLOOD COUNT 7.9 10^3/uL (4.0-10.0)
[2022-01-06 07:33] LABS: ALBUMIN 2.2 GM/DL (3.2-5.2); BILIRUBIN,TOTAL 0.6 MG/DL (0.2-1.0); CALCIUM LEVEL 9.1 MG/DL (8.5-10.1); CREATININE FOR GFR 7.09 MG/DL (0.70-1.30); GLOMERULAR FILTRATION RATE 8.5 (>56); POTASSIUM SERUM 4.3 MEQ/L (3.5-5.1); TOTAL PROTEIN 7.6 GM/DL (6.4-8.2)
[2022-01-06] MEDS: METOPROLOL TARTRATE 100MG TAB PO SCH ×2 (10:17→21:00)
[2022-01-06] MEDS: HumaLOG INSULIN (NovoLOG) PER UNIT SC SCH ×3 (12:00→21:00)
[2022-01-06 21:35] VITALS: BP 81/47
[2022-01-06 21:42] VITALS: BP 85/55
[2022-01-06 21:58] VITALS: BP 96/57
[2022-01-06 23:00] VITALS: BP 105/62
[2022-01-07] MEDS: SODIUM CHLORIDE 0.9% INJ 10 ML SYR IV SCH ×2 (05:28→18:12)
[2022-01-07] MEDS: HEPARIN SOD (PORCINE) 5000UNITS/ML 1ML VIAL/SYRINGE SQ SCH ×3 (05:28→22:09)
[2022-01-07 05:42] VITALS: BP 99/55
[2022-01-07] MEDS: METOPROLOL TARTRATE 100MG TAB PO SCH (09:00)
[2022-01-07] MEDS: FIDAXOMICIN 200 MG TAB (DIFICID) PO SCH ×2 (09:49→22:08)
[2022-01-07] MEDS: CALCITRIOL 0.25 MCG CAP (S0169) PO SCH (09:50)
[2022-01-07] MEDS: PANTOPRAZOLE 40MG TAB (PROTONIX) PO SCH (09:50)
[2022-01-07] MEDS: allopurinoL 100 MG TAB PO SCH (09:50)
[2022-01-07] MEDS ORDERED: NS 500 ML IV ONE (11:20)
[2022-01-07] MEDS: SODIUM CHLORIDE 0.9% INJ 10 ML SYR IV PRN (12:23)
[2022-01-07] MEDS: HumaLOG INSULIN (NovoLOG) PER UNIT SC SCH ×3 (12:57→22:03)
[2022-01-07 19:08] VITALS: BP 98/57
[2022-01-07] MEDS ORDERED: METOPROLOL TART 50 MG TAB PO SCH (21:00)
[2022-01-07 21:59] VITALS: BP 120/70
[2022-01-08] MEDS: SODIUM CHLORIDE 0.9% INJ 10 ML SYR IV SCH ×2 (05:28→18:24)
[2022-01-08] MEDS: HEPARIN SOD (PORCINE) 5000UNITS/ML 1ML VIAL/SYRINGE SQ SCH ×3 (05:28→22:12)
[2022-01-08 06:00] VITALS: BP 99/57
[2022-01-08 06:05] LABS: HEMATOCRIT 37.1 % (42.0-52.0); HEMOGLOBIN 11.6 g/dl (13.5-17.5); MEAN CORPUSCULAR HEMOGLOBIN 30.2 pg (27.0-33.0); MEAN CORPUSCULAR HGB CONC 31.3 g/dl (32.0-36.5); MEAN CORPUSCULAR VOLUME 96.6 fl (80.0-96.0); PLATELET COUNT, AUTOMATED 314 10^3/uL (150-450); RED BLOOD COUNT 3.84 10^6/uL (4.30-6.10)
[2022-01-08 06:36] LABS: ALBUMIN 2.1 GM/DL (3.2-5.2); ALT/SGPT < 6 U/L (12-78); BILIRUBIN,TOTAL 0.7 MG/DL (0.2-1.0); BLOOD UREA NITROGEN 26 MG/DL (7-18); CALCIUM LEVEL 9.1 MG/DL (8.5-10.1); CARBON DIOXIDE LEVEL 22 MEQ/L (21-32); CHLORIDE LEVEL 101 MEQ/L (98-107); CREATININE FOR GFR 7.29 MG/DL (0.70-1.30); GLOMERULAR FILTRATION RATE 8.2 (>56); GLUCOSE, FASTING 166 MG/DL (70-100); POTASSIUM SERUM 4.2 MEQ/L (3.5-5.1); SODIUM LEVEL 131 MEQ/L (136-145); TOTAL PROTEIN 8.1 GM/DL (6.4-8.2)
[2022-01-08] MEDS ORDERED: METOPROLOL TART 50 MG TAB PO SCH (09:00)
[2022-01-08] MEDS: FIDAXOMICIN 200 MG TAB (DIFICID) PO SCH ×2 (10:16→22:11)
[2022-01-08] MEDS: CALCITRIOL 0.25 MCG CAP (S0169) PO SCH (10:16)
[2022-01-08] MEDS: PANTOPRAZOLE 40MG TAB (PROTONIX) PO SCH (10:17)
[2022-01-08] MEDS: allopurinoL 100 MG TAB PO SCH (10:17)
[2022-01-08] MEDS ORDERED: LOPERAMIDE 2 MG CAPLET PO PRN (10:50)
[2022-01-08] MEDS: METOPROLOL TART 25 MG TABLET PO SCH (11:03)
[2022-01-08] MEDS: HumaLOG INSULIN (NovoLOG) PER UNIT SC SCH ×3 (12:51→21:00)
[2022-01-08 20:44] VITALS: BP 97/53
[2022-01-08] MEDS: PERCOCET 5MG/325MG TAB PO PRN (22:15)
[2022-01-09] VITALS (15 sets, daily range): BP systolic 81–136; BP diastolic 50–87
[2022-01-09] MEDS ORDERED: SODIUM CHLORIDE 0.9% 1000ML IV PRN (00:55)
[2022-01-09] MEDS: PANTOPRAZOLE 40MG TAB (PROTONIX) PO SCH (05:44)
[2022-01-09] MEDS: FIDAXOMICIN 200 MG TAB (DIFICID) PO SCH ×2 (05:44→21:09)
[2022-01-09] MEDS: SODIUM CHLORIDE 0.9% INJ 10 ML SYR IV SCH ×2 (05:44→18:53)
[2022-01-09] MEDS: CALCITRIOL 0.25 MCG CAP (S0169) PO SCH (05:44)
[2022-01-09] MEDS: HEPARIN SOD (PORCINE) 5000UNITS/ML 1ML VIAL/SYRINGE SQ SCH ×3 (05:44→21:09)
[2022-01-09] MEDS: allopurinoL 100 MG TAB PO SCH (05:45)
[2022-01-09] MEDS: METOPROLOL TART 25 MG TABLET PO SCH ×2 (05:45→18:00)
[2022-01-09] MEDS: SODIUM CHLORIDE 0.9% INJ 10 ML SYR IV PRN (11:32)
[2022-01-09 11:51] LABS: HEMATOCRIT 36.5 % (42.0-52.0); HEMOGLOBIN 11.4 g/dl (13.5-17.5); MEAN CORPUSCULAR HEMOGLOBIN 30.6 pg (27.0-33.0); MEAN CORPUSCULAR HGB CONC 31.2 g/dl (32.0-36.5); MEAN CORPUSCULAR VOLUME 98.1 fl (80.0-96.0); PLATELET COUNT, AUTOMATED 324 10^3/uL (150-450); RED BLOOD COUNT 3.72 10^6/uL (4.30-6.10); WHITE BLOOD COUNT 10.2 10^3/uL (4.0-10.0)
[2022-01-09] MEDS ORDERED: NS 500 ML IV ONE ×2 (12:05→21:25)
[2022-01-09] MEDS: PROMETHAZINE 25MG/ML 1ML VIAL IV PRN (12:12)
[2022-01-09] MEDS ORDERED: ACETAMINOPHEN TAB 650MG DOSE (2X325MG) PO ONE (12:15)
[2022-01-09 12:56] LABS: CK-MB VALUE MASS < 1.0 NG/ML (<3.6); CPK CREATINE PHOSPHOKINASE 59 U/L (39-308); MB/CK RELATIVE INDEX 1.69 (< OR =4)
[2022-01-09] MEDS ORDERED: ACETAMINOPHEN 650 MG SUPP PR PRN (13:55)
[2022-01-09] MEDS: HumaLOG INSULIN (NovoLOG) PER UNIT SC SCH ×3 (14:58→21:00)
[2022-01-09] MEDS ORDERED: VANCOMYCIN HCL 1,000 MG, VIAL MATE ADAPTER 1 EACH in NS 250 ML IV ONE (15:55)
[2022-01-09] MEDS: LACTOBACILLUS ACIDOPHILUS CAP (BACID) PO SCH (18:53)
[2022-01-09] MEDS: MUPIROCIN 2% OINT 22 GM TUBE TOP SCH (20:00)
[2022-01-10] VITALS (13 sets, daily range): BP systolic 94–137; BP diastolic 53–76
[2022-01-10] MEDS ORDERED: SODIUM CHLORIDE 0.9% 1000ML IV PRN (02:00)
[2022-01-10 04:53] LABS: HEMATOCRIT 33.4 % (42.0-52.0); HEMOGLOBIN 10.5 g/dl (13.5-17.5); MEAN CORPUSCULAR HGB CONC 31.4 g/dl (32.0-36.5); MEAN CORPUSCULAR VOLUME 95.4 fl (80.0-96.0); PLATELET COUNT, AUTOMATED 288 10^3/uL (150-450); WHITE BLOOD COUNT 13.3 10^3/uL (4.0-10.0)
[2022-01-10] MEDS: PERCOCET 5MG/325MG TAB PO PRN ×2 (04:55→14:09)
[2022-01-10] MEDS: SODIUM CHLORIDE 0.9% INJ 10 ML SYR IV SCH ×2 (05:21→18:21)
[2022-01-10] MEDS: HEPARIN SOD (PORCINE) 5000UNITS/ML 1ML VIAL/SYRINGE SQ SCH ×3 (05:21→21:16)
[2022-01-10 05:24] LABS: ALT/SGPT < 6 U/L (12-78); BILIRUBIN,TOTAL 0.6 MG/DL (0.2-1.0); BLOOD UREA NITROGEN 47 MG/DL (7-18); CALCIUM LEVEL 8.9 MG/DL (8.5-10.1); CARBON DIOXIDE LEVEL 19 MEQ/L (21-32); CHLORIDE LEVEL 101 MEQ/L (98-107); CREATININE FOR GFR 9.72 MG/DL (0.70-1.30); GLOMERULAR FILTRATION RATE 5.9 (>56); GLUCOSE, FASTING 161 MG/DL (70-100); POTASSIUM SERUM 4.6 MEQ/L (3.5-5.1); SODIUM LEVEL 131 MEQ/L (136-145); TOTAL PROTEIN 7.4 GM/DL (6.4-8.2)
[2022-01-10] MEDS: METOPROLOL TART 25 MG TABLET PO SCH ×2 (09:00→18:22)
[2022-01-10] MEDS: LACTOBACILLUS ACIDOPHILUS CAP (BACID) PO SCH ×2 (09:12→18:21)
[2022-01-10] MEDS: FIDAXOMICIN 200 MG TAB (DIFICID) PO SCH ×2 (09:12→21:14)
[2022-01-10] MEDS: PANTOPRAZOLE 40MG TAB (PROTONIX) PO SCH (09:12)
[2022-01-10] MEDS: CALCITRIOL 0.25 MCG CAP (S0169) PO SCH (09:13)
[2022-01-10] MEDS: MUPIROCIN 2% OINT 22 GM TUBE TOP SCH (09:13)
[2022-01-10] MEDS: allopurinoL 100 MG TAB PO SCH (09:13)
[2022-01-10] MEDS: HumaLOG INSULIN (NovoLOG) PER UNIT SC SCH ×3 (12:00→21:00)
[2022-01-10] MEDS: DARBEPOETIN 100 MCG/0.5 ML *DIALYSIS* SYRINGE (J0882) IV SCH (12:58)
[2022-01-10] MEDS ORDERED: VANCOMYCIN HCL 750 MG, VIAL MATE ADAPTER 1 EACH in NS 250 ML IV SCH (16:00)
[2022-01-10] MEDS ORDERED: VANCOMYCIN HCL 1,000 MG, VIAL MATE ADAPTER 1 EACH in NS 250 ML IV SCH (16:00)
[2022-01-10] MEDS ORDERED: ISOVUE-370 76% 100ML VIAL As Ordered ONE (16:35)
[2022-01-10] MEDS: MEROPENEM INJ 1 GM in IV 1 EA IV SCH (18:20)
[2022-01-11] VITALS (7 sets, daily range): BP systolic 115–140; BP diastolic 55–76
[2022-01-11] MEDS: SODIUM CHLORIDE 0.9% INJ 10 ML SYR IV SCH ×2 (06:00→17:09)
[2022-01-11] MEDS: HEPARIN SOD (PORCINE) 5000UNITS/ML 1ML VIAL/SYRINGE SQ SCH ×3 (06:39→21:27)
[2022-01-11] MEDS ORDERED: LIDOCAINE 2% MDV 20ML VIAL SC ONE (08:05)
[2022-01-11] MEDS ORDERED: LIDOCAINE 2% MDV 20ML VIAL As Ordered ONE (08:08)
[2022-01-11 08:21] LABS: C REACTIVE PROTEIN QUANTITATIV 17.1 MG/DL (0.00-0.30); VANCOMYCIN RANDOM 11.3 UG/ML
[2022-01-11] MEDS ORDERED: VANCOMYCIN HCL 750 MG, VIAL MATE ADAPTER 1 EACH in NS 250 ML IV ONE (09:00)
[2022-01-11] MEDS: FIDAXOMICIN 200 MG TAB (DIFICID) PO SCH ×2 (09:30→21:26)
[2022-01-11] MEDS: PANTOPRAZOLE 40MG TAB (PROTONIX) PO SCH (09:30)
[2022-01-11] MEDS: LACTOBACILLUS ACIDOPHILUS CAP (BACID) PO SCH ×2 (09:30→17:08)
[2022-01-11] MEDS: allopurinoL 100 MG TAB PO SCH (09:31)
[2022-01-11] MEDS: CALCITRIOL 0.25 MCG CAP (S0169) PO SCH (09:31)
[2022-01-11] MEDS: METOPROLOL TART 25 MG TABLET PO SCH ×2 (09:34→21:27)
[2022-01-11] MEDS: MUPIROCIN 2% OINT 22 GM TUBE TOP SCH (09:39)
[2022-01-11 11:56] LABS: BASO # 0.1 10^3/uL (0.0-0.2); BASO % 0.8 % (0.0-1.0); EOS # 0.1 10^3/uL (0.0-0.5); EOS % 0.7 % (0.0-3.0); HEMATOCRIT 32.9 % (42.0-52.0); LYMPH # 2.6 10^3/uL (1.5-5.0); LYMPH % 21.3 % (24.0-44.0); MEAN CORPUSCULAR HEMOGLOBIN 29.9 pg (27.0-33.0); MEAN CORPUSCULAR HGB CONC 30.4 g/dl (32.0-36.5); MEAN CORPUSCULAR VOLUME 98.2 fl (80.0-96.0); MONO # 1.5 10^3/uL (0.0-0.8); MONO % 12.7 % (2.0-8.0); NEUTROPHILS # 7.6 10^3/uL (1.5-8.5); NEUTROPHILS % 63.3 % (36.0-66.0); PLATELET COUNT, AUTOMATED 270 10^3/uL (150-450); RED BLOOD COUNT 3.35 10^6/uL (4.30-6.10); WHITE BLOOD COUNT 12.1 10^3/uL (4.0-10.0)
[2022-01-11 12:31] LABS: BILIRUBIN,TOTAL 0.5 MG/DL (0.2-1.0); CALCIUM LEVEL 8.7 MG/DL (8.5-10.1); CREATININE FOR GFR 6.21 MG/DL (0.70-1.30); GLOMERULAR FILTRATION RATE 9.9 (>56); MAGNESIUM LEVEL 2.1 MG/DL (1.8-2.4); POTASSIUM SERUM 4.2 MEQ/L (3.5-5.1); TOTAL PROTEIN 6.9 GM/DL (6.4-8.2)
[2022-01-11] MEDS: HumaLOG INSULIN (NovoLOG) PER UNIT SC SCH ×3 (12:33→21:00)
[2022-01-11] MEDS: MEROPENEM INJ 1 GM in IV 1 EA IV SCH (17:08)
[2022-01-12] VITALS: BP 126/64
[2022-01-12] MEDS ORDERED: SODIUM CHLORIDE 0.9% 1000ML IV PRN (00:30)
[2022-01-12 04:00] VITALS: BP 129/71
[2022-01-12] MEDS: HEPARIN SOD (PORCINE) 5000UNITS/ML 1ML VIAL/SYRINGE SQ SCH ×3 (05:15→22:37)
[2022-01-12] MEDS: SODIUM CHLORIDE 0.9% INJ 10 ML SYR IV SCH ×2 (05:16→17:54)
[2022-01-12 08:24] VITALS: BP 130/74
[2022-01-12 08:58] LABS: BASO # 0.1 10^3/uL (0.0-0.2); BASO % 0.9 % (0.0-1.0); EOS # 0.1 10^3/uL (0.0-0.5); EOS % 1.4 % (0.0-3.0); HEMATOCRIT 33.5 % (42.0-52.0); HEMOGLOBIN 10.2 g/dl (13.5-17.5); LYMPH # 2.7 10^3/uL (1.5-5.0); MEAN CORPUSCULAR HEMOGLOBIN 30.1 pg (27.0-33.0); MEAN CORPUSCULAR HGB CONC 30.4 g/dl (32.0-36.5); MEAN CORPUSCULAR VOLUME 98.8 fl (80.0-96.0); MONO # 1.4 10^3/uL (0.0-0.8); MONO % 14.2 % (2.0-8.0); NEUTROPHILS # 5.2 10^3/uL (1.5-8.5); NEUTROPHILS % 53.6 % (36.0-66.0); PLATELET COUNT, AUTOMATED 288 10^3/uL (150-450); RED BLOOD COUNT 3.39 10^6/uL (4.30-6.10); WHITE BLOOD COUNT 9.6 10^3/uL (4.0-10.0)
[2022-01-12] MEDS: FIDAXOMICIN 200 MG TAB (DIFICID) PO SCH ×2 (09:13→20:46)
[2022-01-12] MEDS: METOPROLOL TART 25 MG TABLET PO SCH ×2 (09:13→20:47)
[2022-01-12] MEDS: allopurinoL 100 MG TAB PO SCH (09:13)
[2022-01-12] MEDS: PANTOPRAZOLE 40MG TAB (PROTONIX) PO SCH (09:13)
[2022-01-12] MEDS: LACTOBACILLUS ACIDOPHILUS CAP (BACID) PO SCH ×2 (09:13→17:53)
[2022-01-12] MEDS: CALCITRIOL 0.25 MCG CAP (S0169) PO SCH (09:13)
[2022-01-12 09:22] LABS: BILIRUBIN,TOTAL 0.4 MG/DL (0.2-1.0); CALCIUM LEVEL 8.8 MG/DL (8.5-10.1); CREATININE FOR GFR 7.83 MG/DL (0.70-1.30); GLOMERULAR FILTRATION RATE 7.6 (>56); POTASSIUM SERUM 4.5 MEQ/L (3.5-5.1); TOTAL PROTEIN 7.1 GM/DL (6.4-8.2); VANCOMYCIN RANDOM 21.9 UG/ML
[2022-01-12] MEDS: MUPIROCIN 2% OINT 22 GM TUBE TOP SCH (09:57)
[2022-01-12] MEDS: HumaLOG INSULIN (NovoLOG) PER UNIT SC SCH ×3 (12:00→21:00)
[2022-01-12 16:00] VITALS: BP 132/72
[2022-01-12] MEDS: MEROPENEM INJ 1 GM in IV 1 EA IV SCH (17:54)
[2022-01-12 19:49] VITALS: BP 126/58
[2022-01-12] MEDS: RAMELTEON 8 MG TAB (ROZEREM) PO PRN (22:37)
[2022-01-13] VITALS (7 sets, daily range): BP systolic 112–164; BP diastolic 65–85
[2022-01-13 06:53] LABS: BASO # 0.1 10^3/uL (0.0-0.2); BASO % 1.4 % (0.0-1.0); EOS # 0.2 10^3/uL (0.0-0.5); EOS % 3.5 % (0.0-3.0); HEMOGLOBIN 10.1 g/dl (13.5-17.5); LYMPH # 1.8 10^3/uL (1.5-5.0); LYMPH % 28.4 % (24.0-44.0); MEAN CORPUSCULAR HEMOGLOBIN 29.4 pg (27.0-33.0); MEAN CORPUSCULAR HGB CONC 30.6 g/dl (32.0-36.5); MEAN CORPUSCULAR VOLUME 96.2 fl (80.0-96.0); NEUTROPHILS % 46.9 % (36.0-66.0); PLATELET COUNT, AUTOMATED 258 10^3/uL (150-450); RED BLOOD COUNT 3.43 10^6/uL (4.30-6.10); WHITE BLOOD COUNT 6.4 10^3/uL (4.0-10.0)
[2022-01-13] MEDS: SODIUM CHLORIDE 0.9% INJ 10 ML SYR IV SCH ×2 (07:08→17:57)
[2022-01-13] MEDS: HEPARIN SOD (PORCINE) 5000UNITS/ML 1ML VIAL/SYRINGE SQ SCH ×3 (07:08→21:18)
[2022-01-13 07:18] LABS: ALBUMIN 1.9 GM/DL (3.2-5.2); BILIRUBIN,TOTAL 0.3 MG/DL (0.2-1.0); CALCIUM LEVEL 8.5 MG/DL (8.5-10.1); CREATININE FOR GFR 5.49 MG/DL (0.70-1.30); GLOMERULAR FILTRATION RATE 11.4 (>56); MAGNESIUM LEVEL 2.1 MG/DL (1.8-2.4); TOTAL PROTEIN 6.5 GM/DL (6.4-8.2)
[2022-01-13] MEDS: LACTOBACILLUS ACIDOPHILUS CAP (BACID) PO SCH ×2 (08:00→17:57)
[2022-01-13 09:12] LABS: C REACTIVE PROTEIN QUANTITATIV 8.57 MG/DL (0.00-0.30)
[2022-01-13] MEDS: PANTOPRAZOLE 40MG TAB (PROTONIX) PO SCH (09:20)
[2022-01-13] MEDS: FIDAXOMICIN 200 MG TAB (DIFICID) PO SCH ×2 (09:20→21:17)
[2022-01-13] MEDS: METOPROLOL TART 25 MG TABLET PO SCH ×2 (09:20→21:17)
[2022-01-13] MEDS: MUPIROCIN 2% OINT 22 GM TUBE TOP SCH (09:21)
[2022-01-13] MEDS: allopurinoL 100 MG TAB PO SCH (09:21)
[2022-01-13] MEDS: CALCITRIOL 0.25 MCG CAP (S0169) PO SCH (09:21)
[2022-01-13] MEDS: HumaLOG INSULIN (NovoLOG) PER UNIT SC SCH ×3 (12:09→21:00)
[2022-01-13] MEDS: MEROPENEM INJ 1 GM in IV 1 EA IV SCH (17:56)
[2022-01-14 00:26] VITALS: BP 143/72
[2022-01-14 04:20] VITALS: BP 141/83
[2022-01-14] MEDS: HEPARIN SOD (PORCINE) 5000UNITS/ML 1ML VIAL/SYRINGE SQ SCH ×3 (06:12→21:19)
[2022-01-14] MEDS: SODIUM CHLORIDE 0.9% INJ 10 ML SYR IV SCH ×2 (06:12→17:33)
[2022-01-14 07:10] LABS: BASO # 0.1 10^3/uL (0.0-0.2); BASO % 1.3 % (0.0-1.0); EOS # 0.4 10^3/uL (0.0-0.5); HEMATOCRIT 34.1 % (42.0-52.0); HEMOGLOBIN 10.3 g/dl (13.5-17.5); LYMPH # 2.6 10^3/uL (1.5-5.0); LYMPH % 34.7 % (24.0-44.0); MEAN CORPUSCULAR HEMOGLOBIN 29.9 pg (27.0-33.0); MEAN CORPUSCULAR HGB CONC 30.2 g/dl (32.0-36.5); MEAN CORPUSCULAR VOLUME 99.1 fl (80.0-96.0); MONO % 13.9 % (2.0-8.0); NEUTROPHILS # 3.1 10^3/uL (1.5-8.5); NEUTROPHILS % 40.8 % (36.0-66.0); PLATELET COUNT, AUTOMATED 277 10^3/uL (150-450); RED BLOOD COUNT 3.44 10^6/uL (4.30-6.10); WHITE BLOOD COUNT 7.5 10^3/uL (4.0-10.0)
[2022-01-14 07:36] LABS: ALBUMIN 1.9 GM/DL (3.2-5.2); BILIRUBIN,TOTAL 0.3 MG/DL (0.2-1.0); CALCIUM LEVEL 8.6 MG/DL (8.5-10.1); CREATININE FOR GFR 6.77 MG/DL (0.70-1.30); MAGNESIUM LEVEL 1.9 MG/DL (1.8-2.4); POTASSIUM SERUM 4.3 MEQ/L (3.5-5.1); TOTAL PROTEIN 6.7 GM/DL (6.4-8.2)
[2022-01-14 08:10] VITALS: BP 147/82
[2022-01-14] MEDS: LACTOBACILLUS ACIDOPHILUS CAP (BACID) PO SCH ×2 (08:13→17:33)
[2022-01-14] MEDS: METOPROLOL TART 25 MG TABLET PO SCH ×2 (08:13→21:19)
[2022-01-14] MEDS: allopurinoL 100 MG TAB PO SCH (08:13)
[2022-01-14] MEDS: FIDAXOMICIN 200 MG TAB (DIFICID) PO SCH ×2 (08:13→21:19)
[2022-01-14] MEDS: PANTOPRAZOLE 40MG TAB (PROTONIX) PO SCH (08:13)
[2022-01-14] MEDS: CALCITRIOL 0.25 MCG CAP (S0169) PO SCH (08:14)
[2022-01-14] MEDS: MUPIROCIN 2% OINT 22 GM TUBE TOP SCH (08:14)
[2022-01-14] MEDS ORDERED: SODIUM CHLORIDE 0.9% 1000ML IV PRN (08:20)
[2022-01-14] MEDS: HumaLOG INSULIN (NovoLOG) PER UNIT SC SCH ×3 (12:00→21:00)
[2022-01-14 15:31] VITALS: BP 135/78
[2022-01-14] MEDS: GENTAMICIN 100 MG in IV 1 EA IV SCH (16:29)
[2022-01-14] MEDS: SANTYL OINT 30GM TOP SCH (16:32)
[2022-01-14 20:56] VITALS: BP 117/70
[2022-01-15] MEDS: SODIUM CHLORIDE 0.9% INJ 10 ML SYR IV SCH (04:33)
[2022-01-15 04:57] VITALS: BP 135/78
[2022-01-15] MEDS: HEPARIN SOD (PORCINE) 5000UNITS/ML 1ML VIAL/SYRINGE SQ SCH ×3 (06:27→22:12)
[2022-01-15 07:12] LABS: BASO # 0.1 10^3/uL (0.0-0.2); BASO % 1.8 % (0.0-1.0); EOS # 0.4 10^3/uL (0.0-0.5); EOS % 4.8 % (0.0-3.0); HEMATOCRIT 33.8 % (42.0-52.0); HEMOGLOBIN 10.4 g/dl (13.5-17.5); LYMPH # 2.3 10^3/uL (1.5-5.0); LYMPH % 31.7 % (24.0-44.0); MEAN CORPUSCULAR HEMOGLOBIN 30.2 pg (27.0-33.0); MEAN CORPUSCULAR HGB CONC 30.8 g/dl (32.0-36.5); MEAN CORPUSCULAR VOLUME 98.3 fl (80.0-96.0); MONO # 0.8 10^3/uL (0.0-0.8); MONO % 11.3 % (2.0-8.0); NEUTROPHILS # 3.3 10^3/uL (1.5-8.5); NEUTROPHILS % 45.6 % (36.0-66.0); PLATELET COUNT, AUTOMATED 292 10^3/uL (150-450); RED BLOOD COUNT 3.44 10^6/uL (4.30-6.10); WHITE BLOOD COUNT 7.3 10^3/uL (4.0-10.0)
[2022-01-15 07:43] LABS: BILIRUBIN,TOTAL 0.4 MG/DL (0.2-1.0); CALCIUM LEVEL 8.2 MG/DL (8.5-10.1); CREATININE FOR GFR 5.29 MG/DL (0.70-1.30); GENTAMICIN LEVEL RANDOM 3.8 MCG/ML; GLOMERULAR FILTRATION RATE 11.9 (>56); POTASSIUM SERUM 4.3 MEQ/L (3.5-5.1); TOTAL PROTEIN 6.7 GM/DL (6.4-8.2)
[2022-01-15] MEDS: MUPIROCIN 2% OINT 22 GM TUBE TOP SCH (08:10)
[2022-01-15] MEDS: LACTOBACILLUS ACIDOPHILUS CAP (BACID) PO SCH ×2 (08:10→17:56)
[2022-01-15] MEDS: SANTYL OINT 30GM TOP SCH (08:10)
[2022-01-15] MEDS: CALCITRIOL 0.25 MCG CAP (S0169) PO SCH (08:11)
[2022-01-15] MEDS: PANTOPRAZOLE 40MG TAB (PROTONIX) PO SCH (08:11)
[2022-01-15] MEDS: FIDAXOMICIN 200 MG TAB (DIFICID) PO SCH ×2 (08:11→21:56)
[2022-01-15] MEDS: allopurinoL 100 MG TAB PO SCH (08:11)
[2022-01-15] MEDS: METOPROLOL TART 25 MG TABLET PO SCH ×2 (08:13→21:57)
[2022-01-15 08:14] VITALS: BP 137/87
[2022-01-15 11:00] VITALS: BP 107/67
[2022-01-15] MEDS: HumaLOG INSULIN (NovoLOG) PER UNIT SC SCH ×3 (12:00→21:00)
[2022-01-15 14:00] VITALS: BP 140/73
[2022-01-15] MEDS: NYSTATIN 100,000 UNITS/GM TOPICAL PWD 15 GM TOP SCH (21:56)
[2022-01-15] MEDS: RAMELTEON 8 MG TAB (ROZEREM) PO PRN (21:56)
[2022-01-15] MEDS: ACETAMINOPHEN TAB 650MG DOSE (2X325MG) PO PRN (21:57)
[2022-01-15 22:00] VITALS: BP 119/74
[2022-01-16] MEDS: HEPARIN SOD (PORCINE) 5000UNITS/ML 1ML VIAL/SYRINGE SQ SCH ×3 (04:44→21:14)
[2022-01-16 06:00] VITALS: BP 158/79
[2022-01-16 06:55] LABS: HEMATOCRIT 33.4 % (42.0-52.0); HEMOGLOBIN 10.3 g/dl (13.5-17.5); MEAN CORPUSCULAR HEMOGLOBIN 30.5 pg (27.0-33.0); MEAN CORPUSCULAR HGB CONC 30.8 g/dl (32.0-36.5); MEAN CORPUSCULAR VOLUME 98.8 fl (80.0-96.0); PLATELET COUNT, AUTOMATED 323 10^3/uL (150-450); RED BLOOD COUNT 3.38 10^6/uL (4.30-6.10)
[2022-01-16 07:22] LABS: BILIRUBIN,TOTAL 0.4 MG/DL (0.2-1.0); CALCIUM LEVEL 8.4 MG/DL (8.5-10.1); CREATININE FOR GFR 6.59 MG/DL (0.70-1.30); GLOMERULAR FILTRATION RATE 9.2 (>56); POTASSIUM SERUM 4.5 MEQ/L (3.5-5.1); TOTAL PROTEIN 6.7 GM/DL (6.4-8.2)
[2022-01-16 07:40] LABS: ATYPICAL LYMPH 1 % (0-5); BASOPHILS 1 % (0-1); EOSINOPHILS 7 % (0-3); LYMPHOCYTES 33 % (16-44); METAMYELOCYTES 1 % (0-0); MONOCYTES 8 % (0-5); NEUTROPHILS 48 % (28-66); PLATELET ESTIMATE NORMAL (NORMAL)
[2022-01-16] MEDS: METOPROLOL TART 25 MG TABLET PO SCH ×2 (08:16→21:14)
[2022-01-16] MEDS: allopurinoL 100 MG TAB PO SCH (08:17)
[2022-01-16] MEDS: CALCITRIOL 0.25 MCG CAP (S0169) PO SCH (08:17)
[2022-01-16] MEDS: NYSTATIN 100,000 UNITS/GM TOPICAL PWD 15 GM TOP SCH ×2 (08:17→21:15)
[2022-01-16] MEDS: PANTOPRAZOLE 40MG TAB (PROTONIX) PO SCH (08:17)
[2022-01-16] MEDS: LACTOBACILLUS ACIDOPHILUS CAP (BACID) PO SCH ×2 (08:17→18:33)
[2022-01-16] MEDS: MUPIROCIN 2% OINT 22 GM TUBE TOP SCH (08:17)
[2022-01-16] MEDS: FIDAXOMICIN 200 MG TAB (DIFICID) PO SCH (08:17)
[2022-01-16] MEDS: SANTYL OINT 30GM TOP SCH (08:18)
[2022-01-16] MEDS: HumaLOG INSULIN (NovoLOG) PER UNIT SC SCH ×3 (12:00→20:39)
[2022-01-16] MEDS: LOPERAMIDE 2 MG CAPLET PO SCH (21:13)
[2022-01-16] MEDS: RAMELTEON 8 MG TAB (ROZEREM) PO PRN (21:14)
[2022-01-16] MEDS: ACETAMINOPHEN TAB 650MG DOSE (2X325MG) PO PRN (21:14)
[2022-01-17] MEDS: HEPARIN SOD (PORCINE) 5000UNITS/ML 1ML VIAL/SYRINGE SQ SCH ×3 (05:35→22:15)
[2022-01-17] MEDS: PANTOPRAZOLE 40MG TAB (PROTONIX) PO SCH (05:36)
[2022-01-17] MEDS: LOPERAMIDE 2 MG CAPLET PO SCH ×2 (05:36→22:14)
[2022-01-17] MEDS: allopurinoL 100 MG TAB PO SCH (05:36)
[2022-01-17] MEDS: LACTOBACILLUS ACIDOPHILUS CAP (BACID) PO SCH ×2 (05:36→17:17)
[2022-01-17] MEDS: CALCITRIOL 0.25 MCG CAP (S0169) PO SCH (05:36)
[2022-01-17] MEDS: METOPROLOL TART 25 MG TABLET PO SCH ×2 (05:39→22:13)
[2022-01-17 06:00] VITALS: BP 127/73
[2022-01-17] MEDS ORDERED: SODIUM CHLORIDE 0.9% 1000ML IV PRN (06:00)
[2022-01-17 07:34] LABS: BASO # 0.1 10^3/uL (0.0-0.2); BASO % 1.5 % (0.0-1.0); EOS # 0.4 10^3/uL (0.0-0.5); EOS % 4.9 % (0.0-3.0); HEMATOCRIT 32.7 % (42.0-52.0); LYMPH # 2.8 10^3/uL (1.5-5.0); MEAN CORPUSCULAR HGB CONC 30.6 g/dl (32.0-36.5); MEAN CORPUSCULAR VOLUME 98.2 fl (80.0-96.0); MONO # 0.8 10^3/uL (0.0-0.8); MONO % 10.1 % (2.0-8.0); NEUTROPHILS # 3.2 10^3/uL (1.5-8.5); NEUTROPHILS % 42.6 % (36.0-66.0); PLATELET COUNT, AUTOMATED 346 10^3/uL (150-450); RED BLOOD COUNT 3.33 10^6/uL (4.30-6.10); WHITE BLOOD COUNT 7.5 10^3/uL (4.0-10.0)
[2022-01-17 08:07] LABS: ALBUMIN 2.1 GM/DL (3.2-5.2); BILIRUBIN,TOTAL 0.4 MG/DL (0.2-1.0); CALCIUM LEVEL 8.4 MG/DL (8.5-10.1); CREATININE FOR GFR 7.88 MG/DL (0.70-1.30); GENTAMICIN LEVEL RANDOM 2.3 MCG/ML; GLOMERULAR FILTRATION RATE 7.5 (>56); POTASSIUM SERUM 5.2 MEQ/L (3.5-5.1); TOTAL PROTEIN 6.8 GM/DL (6.4-8.2)
[2022-01-17] MEDS: DARBEPOETIN 100 MCG/0.5 ML *DIALYSIS* SYRINGE (J0882) IV SCH (08:24)
[2022-01-17] MEDS: SANTYL OINT 30GM TOP SCH (09:00)
[2022-01-17] MEDS: MUPIROCIN 2% OINT 22 GM TUBE TOP SCH (09:00)
[2022-01-17] MEDS: NYSTATIN 100,000 UNITS/GM TOPICAL PWD 15 GM TOP SCH ×2 (09:00→22:15)
[2022-01-17] MEDS: HumaLOG INSULIN (NovoLOG) PER UNIT SC SCH ×3 (12:00→21:00)
[2022-01-17] MEDS: FIDAXOMICIN 200 MG TAB (DIFICID) PO SCH (13:22)
[2022-01-17] MEDS: GENTAMICIN 100 MG in IV 1 EA IV SCH (13:23)
[2022-01-17 14:00] VITALS: BP 105/67
[2022-01-17 22:00] VITALS: BP 84/52
[2022-01-17] MEDS: RAMELTEON 8 MG TAB (ROZEREM) PO PRN (22:14)
[2022-01-17] MEDS: ACETAMINOPHEN TAB 650MG DOSE (2X325MG) PO PRN (22:14)
[2022-01-18] MEDS: HEPARIN SOD (PORCINE) 5000UNITS/ML 1ML VIAL/SYRINGE SQ SCH ×3 (05:03→20:48)
[2022-01-18 05:06] VITALS: BP 127/78
[2022-01-18 08:09] LABS: HEMATOCRIT 34.8 % (42.0-52.0); HEMOGLOBIN 10.7 g/dl (13.5-17.5); MEAN CORPUSCULAR HEMOGLOBIN 29.4 pg (27.0-33.0); MEAN CORPUSCULAR HGB CONC 30.7 g/dl (32.0-36.5); MEAN CORPUSCULAR VOLUME 95.6 fl (80.0-96.0); PLATELET COUNT, AUTOMATED 371 10^3/uL (150-450); RED BLOOD COUNT 3.64 10^6/uL (4.30-6.10); WHITE BLOOD COUNT 6.6 10^3/uL (4.0-10.0)
[2022-01-18] MEDS: PANTOPRAZOLE 40MG TAB (PROTONIX) PO SCH (08:32)
[2022-01-18] MEDS: CALCITRIOL 0.25 MCG CAP (S0169) PO SCH (08:32)
[2022-01-18] MEDS: allopurinoL 100 MG TAB PO SCH (08:32)
[2022-01-18] MEDS: LOPERAMIDE 2 MG CAPLET PO SCH ×2 (08:32→20:47)
[2022-01-18] MEDS: NYSTATIN 100,000 UNITS/GM TOPICAL PWD 15 GM TOP SCH ×2 (08:32→20:49)
[2022-01-18] MEDS: LACTOBACILLUS ACIDOPHILUS CAP (BACID) PO SCH ×2 (08:32→17:36)
[2022-01-18] MEDS: FIDAXOMICIN 200 MG TAB (DIFICID) PO SCH (08:32)
[2022-01-18] MEDS: SANTYL OINT 30GM TOP SCH (08:33)
[2022-01-18] MEDS: MUPIROCIN 2% OINT 22 GM TUBE TOP SCH (08:33)
[2022-01-18] MEDS: METOPROLOL TART 25 MG TABLET PO SCH ×2 (08:35→20:51)
[2022-01-18 08:44] LABS: ALBUMIN 2.2 GM/DL (3.2-5.2); BILIRUBIN,TOTAL 0.5 MG/DL (0.2-1.0); CALCIUM LEVEL 8.5 MG/DL (8.5-10.1); CREATININE FOR GFR 5.39 MG/DL (0.70-1.30); GLOMERULAR FILTRATION RATE 11.7 (>56); MAGNESIUM LEVEL 1.9 MG/DL (1.8-2.4); POTASSIUM SERUM 4.1 MEQ/L (3.5-5.1)
[2022-01-18] MEDS: HumaLOG INSULIN (NovoLOG) PER UNIT SC SCH ×3 (12:00→20:49)
[2022-01-18 14:12] VITALS: BP 90/58
[2022-01-18] MEDS: ACETAMINOPHEN TAB 650MG DOSE (2X325MG) PO PRN (20:47)
[2022-01-18] MEDS: RAMELTEON 8 MG TAB (ROZEREM) PO PRN (20:47)
[2022-01-19] MEDS: allopurinoL 100 MG TAB PO SCH (05:21)
[2022-01-19] MEDS: LOPERAMIDE 2 MG CAPLET PO SCH ×2 (05:21→20:56)
[2022-01-19] MEDS: CALCITRIOL 0.25 MCG CAP (S0169) PO SCH (05:21)
[2022-01-19] MEDS: LACTOBACILLUS ACIDOPHILUS CAP (BACID) PO SCH ×2 (05:22→17:47)
[2022-01-19] MEDS: PANTOPRAZOLE 40MG TAB (PROTONIX) PO SCH (05:22)
[2022-01-19] MEDS: HEPARIN SOD (PORCINE) 5000UNITS/ML 1ML VIAL/SYRINGE SQ SCH ×3 (05:22→20:55)
[2022-01-19] MEDS: FIDAXOMICIN 200 MG TAB (DIFICID) PO SCH (05:22)
[2022-01-19] MEDS ORDERED: SODIUM CHLORIDE 0.9% 1000ML IV PRN (06:00)
[2022-01-19 06:31] VITALS: BP 125/84
[2022-01-19 07:45] LABS: HEMOGLOBIN 10.6 g/dl (13.5-17.5); MEAN CORPUSCULAR HEMOGLOBIN 29.5 pg (27.0-33.0); MEAN CORPUSCULAR HGB CONC 31.2 g/dl (32.0-36.5); MEAN CORPUSCULAR VOLUME 94.7 fl (80.0-96.0); PLATELET COUNT, AUTOMATED 368 10^3/uL (150-450); RED BLOOD COUNT 3.59 10^6/uL (4.30-6.10); WHITE BLOOD COUNT 6.6 10^3/uL (4.0-10.0)
[2022-01-19 08:09] LABS: ALBUMIN 2.2 GM/DL (3.2-5.2); BILIRUBIN,TOTAL 0.4 MG/DL (0.2-1.0); CALCIUM LEVEL 8.3 MG/DL (8.5-10.1); CREATININE FOR GFR 6.62 MG/DL (0.70-1.30); GLOMERULAR FILTRATION RATE 9.2 (>56); POTASSIUM SERUM 4.4 MEQ/L (3.5-5.1); TOTAL PROTEIN 7.1 GM/DL (6.4-8.2)
[2022-01-19] MEDS: METOPROLOL TART 25 MG TABLET PO SCH ×2 (09:00→20:57)
[2022-01-19] MEDS: SANTYL OINT 30GM TOP SCH (09:00)
[2022-01-19] MEDS: MUPIROCIN 2% OINT 22 GM TUBE TOP SCH (09:00)
[2022-01-19] MEDS: HumaLOG INSULIN (NovoLOG) PER UNIT SC SCH ×3 (12:00→20:47)
[2022-01-19] MEDS: NYSTATIN 100,000 UNITS/GM TOPICAL PWD 15 GM TOP SCH ×2 (13:29→20:55)
[2022-01-19] MEDS ORDERED: ACET1TAB55 PO (15:43)
[2022-01-19] MEDS ORDERED: PANT40TA29 PO (15:43)
[2022-01-19] MEDS ORDERED: METO1TAB87 PO (15:43)
[2022-01-19] MEDS ORDERED: RISATAB3 PO (15:43)
[2022-01-19] MEDS ORDERED: FIDA200TA PO (15:43)
[2022-01-19] MEDS ORDERED: LOPE2CA PO (15:43)
[2022-01-19] MEDS ORDERED: GENTAMICIN 100 MG in IV 1 EA IV ONE (18:00)
[2022-01-19 20:25] VITALS: BP 105/69
[2022-01-19] MEDS: RAMELTEON 8 MG TAB (ROZEREM) PO PRN (20:56)
[2022-01-19] MEDS: ACETAMINOPHEN TAB 650MG DOSE (2X325MG) PO PRN (20:56)
[2022-01-20] MEDS: HEPARIN SOD (PORCINE) 5000UNITS/ML 1ML VIAL/SYRINGE SQ SCH (05:51)
[2022-01-20 06:14] VITALS: BP 138/89
[2022-01-20 07:10] LABS: HEMATOCRIT 34.8 % (42.0-52.0); HEMOGLOBIN 10.8 g/dl (13.5-17.5); MEAN CORPUSCULAR VOLUME 96.7 fl (80.0-96.0); PLATELET COUNT, AUTOMATED 366 10^3/uL (150-450); WHITE BLOOD COUNT 7.4 10^3/uL (4.0-10.0)
[2022-01-20 07:34] LABS: ALBUMIN 1.9 GM/DL (3.2-5.2); BILIRUBIN,TOTAL 0.6 MG/DL (0.2-1.0); CALCIUM LEVEL 8.4 MG/DL (8.5-10.1); CREATININE FOR GFR 4.97 MG/DL (0.70-1.30); GLOMERULAR FILTRATION RATE 12.8 (>56); POTASSIUM SERUM 4.8 MEQ/L (3.5-5.1); TOTAL PROTEIN 7.7 GM/DL (6.4-8.2)
[2022-01-20] MEDS: LOPERAMIDE 2 MG CAPLET PO SCH (07:58)
[2022-01-20] MEDS: PANTOPRAZOLE 40MG TAB (PROTONIX) PO SCH (07:58)
[2022-01-20] MEDS: FIDAXOMICIN 200 MG TAB (DIFICID) PO SCH (07:58)
[2022-01-20] MEDS: LACTOBACILLUS ACIDOPHILUS CAP (BACID) PO SCH (07:58)
[2022-01-20 07:59] VITALS: BP 139/88
[2022-01-20] MEDS: CALCITRIOL 0.25 MCG CAP (S0169) PO SCH (07:59)
[2022-01-20] MEDS: METOPROLOL TART 25 MG TABLET PO SCH (07:59)
[2022-01-20] MEDS: allopurinoL 100 MG TAB PO SCH (07:59)
[2022-01-20] MEDS: NYSTATIN 100,000 UNITS/GM TOPICAL PWD 15 GM TOP SCH (07:59)
[2022-01-20] MEDS: SANTYL OINT 30GM TOP SCH (09:00)
[2022-01-20] MEDS: MUPIROCIN 2% OINT 22 GM TUBE TOP SCH (09:00)
[2022-01-21] MEDS ORDERED: ACET1TAB55 PO (08:41)
[2022-01-21] MEDS ORDERED: RISATAB3 PO (08:41)
[2022-01-21] MEDS ORDERED: LOPE1CAP5 PO (08:42)
[2022-01-21] MEDS ORDERED: PANT-23 PO (08:42)
[2022-01-21] MEDS ORDERED: METO1TAB87 PO (08:42)
[2022-01-28] MEDS ORDERED: FIDAXOMICIN 200 MG TAB (DIFICID) PO SCH (09:00)
== END 2022-01-20 12:23 | disposition home health service (06) | DRG 928 ==
LOC: UNDOADMIN 15:27 → M MSPAV 15:27 → EEVIPCON 16:05 → M PCU 11-23 22:16 → M MSPAV 12-04 18:22 → M ICU 01-09 13:17 → M PCU 01-10 17:19 → M MS5PR 01-15 10:34
PROVIDERS: ADMIT Family Medicine; ATTEND Internal Medicine
PROC: 30233N1 Transfusion of Nonautologous Red Blood Cells into Peripheral Vein, Percutaneous Approach (ICD-10-PCS; 2021-11-19)
PROC: 30233N1 Transfusion of Nonautologous Red Blood Cells into Peripheral Vein, Percutaneous Approach (ICD-10-PCS; 2021-11-19)
PROC: 02HV33Z Insertion of Infusion Device into Superior Vena Cava, Percutaneous Approach (ICD-10-PCS; 2021-11-21)
PROC: 0JH63XZ Insertion of Tunneled Vascular Access Device into Chest Subcutaneous Tissue and Fascia, Percutaneous Approach (ICD-10-PCS; 2021-12-01)
PROC: 02HV33Z Insertion of Infusion Device into Superior Vena Cava, Percutaneous Approach (ICD-10-PCS; 2021-12-01)
PROC: 5A1D70Z Performance of Urinary Filtration, Intermittent, Less than 6 Hours Per Day (ICD-10-PCS; 2021-12-01)
PROC: 0KBW0ZZ Excision of Left Foot Muscle, Open Approach (ICD-10-PCS; 2021-12-20)
PROC: 0HBNXZZ Excision of Left Foot Skin, External Approach (ICD-10-PCS; 2021-12-29)
PROC: 0HRNX73 Replacement of Left Foot Skin with Autologous Tissue Substitute, Full Thickness, External Approach (ICD-10-PCS; principal; 2021-12-29 07:30)
PROC: 0JBR0ZZ Excision of Left Foot Subcutaneous Tissue and Fascia, Open Approach (ICD-10-PCS; 2022-01-11)
PROC: 0KDW0ZZ Extraction of Left Foot Muscle, Open Approach (ICD-10-PCS; 2022-01-13)
DX: T25.322A Burn of third degree of left foot, initial encounter (principal); N18.6 End stage renal disease; A41.51 Sepsis due to Escherichia coli [E. coli]; I12.0 Hypertensive chronic kidney disease with stage 5 chronic kidney disease or end stage renal disease; I48.20 Chronic atrial fibrillation, unspecified; N17.9 Acute kidney failure, unspecified; D62 Acute posthemorrhagic anemia; K57.92 Diverticulitis of intestine, part unspecified, without perforation or abscess without bleeding; E87.2 Acidosis; D68.32 Hemorrhagic disorder due to extrinsic circulating anticoagulants; K40.30 Unilateral inguinal hernia, with obstruction, without gangrene, not specified as recurrent; A04.72 Enterocolitis due to Clostridium difficile, not specified as recurrent; K92.0 Hematemesis; E87.1 Hypo-osmolality and hyponatremia; L97.909 Non-pressure chronic ulcer of unspecified part of unspecified lower leg with unspecified severity; L97.419 Non-pressure chronic ulcer of right heel and midfoot with unspecified severity; L03.116 Cellulitis of left lower limb; M86.9 Osteomyelitis, unspecified; L97.429 Non-pressure chronic ulcer of left heel and midfoot with unspecified severity; E11.42 Type 2 diabetes mellitus with diabetic polyneuropathy; E11.22 Type 2 diabetes mellitus with diabetic chronic kidney disease; Z89.511 Acquired absence of right leg below knee; D63.1 Anemia in chronic kidney disease; E87.5 Hyperkalemia; E66.9 Obesity, unspecified; Z68.30 Body mass index [BMI] 30.0-30.9, adult; E83.51 Hypocalcemia; E11.51 Type 2 diabetes mellitus with diabetic peripheral angiopathy without gangrene; E87.6 Hypokalemia; M10.9 Gout, unspecified; Z94.5 Skin transplant status; F17.210 Nicotine dependence, cigarettes, uncomplicated; Z79.01 Long term (current) use of anticoagulants; Z79.82 Long term (current) use of aspirin; Z79.4 Long term (current) use of insulin; Z79.899 Other long term (current) drug therapy; X11.8XXA Contact with other hot tap-water, initial encounter; Y92.009 Unspecified place in unspecified non-institutional (private) residence as the place of occurrence of the external cause; Y93.89 Activity, other specified; Y99.8 Other external cause status; B96.4 Proteus (mirabilis) (morganii) as the cause of diseases classified elsewhere; B95.61 Methicillin susceptible Staphylococcus aureus infection as the cause of diseases classified elsewhere; E11.65 Type 2 diabetes mellitus with hyperglycemia; I50.9 Heart failure, unspecified; Z99.2 Dependence on renal dialysis; K59.00 Constipation, unspecified; E11.649 Type 2 diabetes mellitus with hypoglycemia without coma; K58.0 Irritable bowel syndrome with diarrhea

== ENCOUNTER → 2022-01-20 | Outpatient (CLI) | payer MEDICARE, OTHER ==
[~2022-01-20] MED LIST changes: +ACET1TAB55 PO; +BEZLOTOXUMAB 1,000 MG in NS 100 ML IV ONE; +ECOT81TA5 PO; +FIDA200TA PO; +LOPE1CAP5 PO; +LOPE2CA PO; +METO1TAB87 PO; +PANT-23 PO; +PANT40TA29 PO; +RISATAB3 PO
== END ==
LOC: M MS5PR 12:38 → UNDOADMOB 12:38 → M OPCLI5PR 12:38 → M MS5PR 12:39 → M OPCLI5PR 16:00 → UNDODISOB 16:00 → EDSTATUS 01-27 11:18
PROVIDERS: ATTEND Internal Medicine Infectious Disease
DX: A04.1 Enterotoxigenic Escherichia coli infection (principal)
CPT/HCPCS: 96365; J0565

== ENCOUNTER 2022-01-21 03:01 | Inpatient (IN) | payer MEDICARE, OTHER ==
[~2022-01-21] VITALS: Ht 172.7 cm; Wt 94.5 kg
[~2022-01-21 03:01] MED LIST changes: -BEZLOTOXUMAB 1,000 MG in NS 100 ML IV ONE; -LOPE1CAP5 PO; -PANT-23 PO
[2022-01-21 03:41] LABS: BASO # 0.1 10^3/uL (0.0-0.2); BASO % 1.3 % (0.0-1.0); EOS # 0.1 10^3/uL (0.0-0.5); EOS % 1.3 % (0.0-3.0); HEMATOCRIT 32.3 % (42.0-52.0); LYMPH # 1.4 10^3/uL (1.5-5.0); LYMPH % 17.6 % (24.0-44.0); MEAN CORPUSCULAR HEMOGLOBIN 29.8 pg (27.0-33.0); MEAN CORPUSCULAR VOLUME 96.1 fl (80.0-96.0); MONO # 0.6 10^3/uL (0.0-0.8); MONO % 7.9 % (2.0-8.0); NEUTROPHILS # 5.7 10^3/uL (1.5-8.5); PLATELET COUNT, AUTOMATED 327 10^3/uL (150-450); RED BLOOD COUNT 3.36 10^6/uL (4.30-6.10)
[2022-01-21 03:59] LABS: CALCIUM LEVEL 7.8 MG/DL (8.5-10.1); CREATININE FOR GFR 3.88 MG/DL (0.70-1.30); POTASSIUM SERUM 3.6 MEQ/L (3.5-5.1)
[2022-01-21 04:18] LABS: CK-MB VALUE MASS 1.3 NG/ML (<3.6); MB/CK RELATIVE INDEX 1.12 (< OR =4)
[2022-01-21 04:29] LABS: INR 1.05; PROTHROMBIN TIME 14.1 SECONDS (12.7-14.5)
[2022-01-21] MEDS ORDERED: MORPHINE 4 MG/ML 1ML VIAL/SYRINGE IV ONE (04:35)
[2022-01-21] MEDS ORDERED: GLUCOSE 4GM CHEW TABLET PO PRN (08:30)
[2022-01-21] MEDS ORDERED: GLUCAGON INJ 1MG VIAL SC PRN (08:30)
[2022-01-21] MEDS ORDERED: DEXTROSE 50% 50 ML SYRINGE IV PRN (08:30)
[2022-01-21] MEDS ORDERED: ACET1TAB55 PO (08:41)
[2022-01-21] MEDS ORDERED: RISATAB3 PO (08:41)
[2022-01-21] MEDS ORDERED: METO1TAB87 PO (08:42)
[2022-01-21] MEDS ORDERED: LOPE1CAP5 PO (08:42)
[2022-01-21] MEDS ORDERED: PANT-23 PO (08:42)
[2022-01-21] MEDS ORDERED: HOME MED LIST COMPLETE! XX SCH (08:45)
[2022-01-21] MEDS: HEPARIN SOD (PORCINE) 5000UNITS/ML 1ML VIAL/SYRINGE SQ SCH ×2 (09:00→20:37)
[2022-01-21 09:29] LABS: RSV AMPLIFICATION NEGATIVE (NEGATIVE)
[2022-01-21] MEDS: INSULIN LISPRO (NovoLOG) PER UNIT SC SCH ×3 (09:48→17:21)
[2022-01-21] MEDS ORDERED: ACETAMINOPHEN 325 MG TAB PO PRN (12:35)
[2022-01-21] MEDS: ASPIRIN 81MG ENTERIC TABLET PO SCH (13:33)
[2022-01-21] MEDS: METOPROLOL TART 12.5 MG PER 1/2 TAB PO SCH ×2 (13:33→20:37)
[2022-01-21] MEDS: LOPERAMIDE 2 MG CAPLET PO SCH ×2 (13:33→20:37)
[2022-01-21] MEDS: PANTOPRAZOLE 40MG TAB (PROTONIX) PO SCH (13:33)
[2022-01-21] MEDS: LACTOBACILLUS ACIDOPHILUS CAP (BACID) PO SCH ×2 (13:34→17:27)
[2022-01-21] MEDS: allopurinoL 100 MG TAB PO SCH (13:34)
[2022-01-21] MEDS: SIMVASTATIN 40 MG TAB PO SCH (13:34)
[2022-01-21] MEDS: FIDAXOMICIN 200 MG TAB (DIFICID) PO SCH (13:35)
[2022-01-21] MEDS: CALCITRIOL 0.25 MCG CAP (S0169) PO SCH (13:35)
[2022-01-21 14:00] VITALS: BP 147/91
[2022-01-21 22:00] VITALS: BP 121/67
[2022-01-22 06:00] VITALS: BP 120/67
[2022-01-22 07:03] LABS: HEMATOCRIT 30.1 % (42.0-52.0); HEMOGLOBIN 9.2 g/dl (13.5-17.5); MEAN CORPUSCULAR HGB CONC 30.6 g/dl (32.0-36.5); PLATELET COUNT, AUTOMATED 310 10^3/uL (150-450); RED BLOOD COUNT 3.17 10^6/uL (4.30-6.10); WHITE BLOOD COUNT 7.6 10^3/uL (4.0-10.0)
[2022-01-22 07:27] LABS: ALBUMIN 1.8 GM/DL (3.2-5.2); ALT/SGPT < 6 U/L (12-78); BILIRUBIN,TOTAL 0.5 MG/DL (0.2-1.0); BLOOD UREA NITROGEN 16 MG/DL (7-18); CALCIUM LEVEL 7.8 MG/DL (8.5-10.1); CARBON DIOXIDE LEVEL 26 MEQ/L (21-32); CHLORIDE LEVEL 102 MEQ/L (98-107); CREATININE FOR GFR 5.46 MG/DL (0.70-1.30); GLOMERULAR FILTRATION RATE 11.5 (>56); GLUCOSE, FASTING 109 MG/DL (70-100); POTASSIUM SERUM 3.9 MEQ/L (3.5-5.1); SODIUM LEVEL 137 MEQ/L (136-145); TOTAL PROTEIN 6.4 GM/DL (6.4-8.2)
[2022-01-22] MEDS: allopurinoL 100 MG TAB PO SCH (08:48)
[2022-01-22] MEDS: SIMVASTATIN 40 MG TAB PO SCH (08:48)
[2022-01-22] MEDS: INSULIN LISPRO (NovoLOG) PER UNIT SC SCH ×3 (08:48→16:49)
[2022-01-22] MEDS: PANTOPRAZOLE 40MG TAB (PROTONIX) PO SCH (08:48)
[2022-01-22] MEDS: LOPERAMIDE 2 MG CAPLET PO SCH ×2 (08:48→20:01)
[2022-01-22] MEDS: LACTOBACILLUS ACIDOPHILUS CAP (BACID) PO SCH ×2 (08:48→17:06)
[2022-01-22] MEDS: CALCITRIOL 0.25 MCG CAP (S0169) PO SCH (08:48)
[2022-01-22] MEDS: ASPIRIN 81MG ENTERIC TABLET PO SCH (08:48)
[2022-01-22] MEDS: FIDAXOMICIN 200 MG TAB (DIFICID) PO SCH (08:48)
[2022-01-22] MEDS: HEPARIN SOD (PORCINE) 5000UNITS/ML 1ML VIAL/SYRINGE SQ SCH ×2 (08:49→20:02)
[2022-01-22] MEDS: METOPROLOL TART 12.5 MG PER 1/2 TAB PO SCH ×2 (08:50→20:01)
[2022-01-22 14:00] VITALS: BP 119/68
[2022-01-22] MEDS ORDERED: DARBEPOETIN 100 MCG/0.5 ML *DIALYSIS* SYRINGE (J0882) IV SCH (18:55)
[2022-01-22 21:55] VITALS: BP 132/98
[2022-01-23] MEDS: LOPERAMIDE 2 MG CAPLET PO SCH ×2 (05:32→21:58)
[2022-01-23] MEDS: SIMVASTATIN 40 MG TAB PO SCH (05:32)
[2022-01-23] MEDS: CALCITRIOL 0.25 MCG CAP (S0169) PO SCH (05:32)
[2022-01-23] MEDS: LACTOBACILLUS ACIDOPHILUS CAP (BACID) PO SCH ×2 (05:32→17:56)
[2022-01-23] MEDS: FIDAXOMICIN 200 MG TAB (DIFICID) PO SCH (05:32)
[2022-01-23] MEDS: ASPIRIN 81MG ENTERIC TABLET PO SCH (05:32)
[2022-01-23] MEDS: PANTOPRAZOLE 40MG TAB (PROTONIX) PO SCH (05:32)
[2022-01-23] MEDS: allopurinoL 100 MG TAB PO SCH (05:32)
[2022-01-23 05:53] LABS: HEMOGLOBIN 9.4 g/dl (13.5-17.5); MEAN CORPUSCULAR HEMOGLOBIN 29.7 pg (27.0-33.0); MEAN CORPUSCULAR HGB CONC 30.3 g/dl (32.0-36.5); MEAN CORPUSCULAR VOLUME 97.8 fl (80.0-96.0); PLATELET COUNT, AUTOMATED 308 10^3/uL (150-450); RED BLOOD COUNT 3.17 10^6/uL (4.30-6.10); WHITE BLOOD COUNT 7.4 10^3/uL (4.0-10.0)
[2022-01-23 06:00] VITALS: BP 99/58
[2022-01-23 06:26] LABS: ALT/SGPT < 6 U/L (12-78); BILIRUBIN,TOTAL 0.5 MG/DL (0.2-1.0); BLOOD UREA NITROGEN 26 MG/DL (7-18); CALCIUM LEVEL 7.6 MG/DL (8.5-10.1); CARBON DIOXIDE LEVEL 24 MEQ/L (21-32); CHLORIDE LEVEL 101 MEQ/L (98-107); CREATININE FOR GFR 7.03 MG/DL (0.70-1.30); GLOMERULAR FILTRATION RATE 8.6 (>56); GLUCOSE, FASTING 129 MG/DL (70-100); IRON (FE) 28 UG/DL (65-175); PERCENT SATURATION 20.4 % (19.7-50.0); POTASSIUM SERUM 4.2 MEQ/L (3.5-5.1); SODIUM LEVEL 133 MEQ/L (136-145); TOTAL IRON BINDING CAPACITY 137 UG/DL (250-450); TOTAL PROTEIN 6.1 GM/DL (6.4-8.2)
[2022-01-23] MEDS: INSULIN LISPRO (NovoLOG) PER UNIT SC SCH ×3 (07:30→17:30)
[2022-01-23] MEDS ORDERED: SODIUM CHLORIDE 0.9% 1000ML IV PRN (07:40)
[2022-01-23] MEDS: HEPARIN SOD (PORCINE) 5000UNITS/ML 1ML VIAL/SYRINGE SQ SCH ×2 (08:16→21:58)
[2022-01-23] MEDS: METOPROLOL TART 12.5 MG PER 1/2 TAB PO SCH ×2 (08:16→21:59)
[2022-01-23 14:00] VITALS: BP 125/93
[2022-01-23 20:03] VITALS: BP 122/85
[2022-01-23] MEDS: RAMELTEON 8 MG TAB (ROZEREM) PO PRN (23:06)
[2022-01-24 05:38] VITALS: BP 132/75
[2022-01-24 06:13] LABS: HEMATOCRIT 31.5 % (42.0-52.0); HEMOGLOBIN 9.5 g/dl (13.5-17.5); MEAN CORPUSCULAR HEMOGLOBIN 29.5 pg (27.0-33.0); MEAN CORPUSCULAR HGB CONC 30.2 g/dl (32.0-36.5); MEAN CORPUSCULAR VOLUME 97.8 fl (80.0-96.0); PLATELET COUNT, AUTOMATED 296 10^3/uL (150-450); RED BLOOD COUNT 3.22 10^6/uL (4.30-6.10); WHITE BLOOD COUNT 7.1 10^3/uL (4.0-10.0)
[2022-01-24 06:25] LABS: ALBUMIN 1.9 GM/DL (3.2-5.2); BILIRUBIN,TOTAL 0.4 MG/DL (0.2-1.0); CALCIUM LEVEL 8.2 MG/DL (8.5-10.1); CREATININE FOR GFR 4.92 MG/DL (0.70-1.30); GLOMERULAR FILTRATION RATE 12.9 (>56); POTASSIUM SERUM 4.4 MEQ/L (3.5-5.1); TOTAL PROTEIN 6.7 GM/DL (6.4-8.2)
[2022-01-24] MEDS: PANTOPRAZOLE 40MG TAB (PROTONIX) PO SCH (08:23)
[2022-01-24] MEDS: LOPERAMIDE 2 MG CAPLET PO SCH ×2 (08:23→21:05)
[2022-01-24] MEDS: METOPROLOL TART 12.5 MG PER 1/2 TAB PO SCH ×2 (08:23→21:05)
[2022-01-24] MEDS: LACTOBACILLUS ACIDOPHILUS CAP (BACID) PO SCH ×2 (08:23→17:21)
[2022-01-24] MEDS: INSULIN LISPRO (NovoLOG) PER UNIT SC SCH ×3 (08:23→17:21)
[2022-01-24] MEDS: allopurinoL 100 MG TAB PO SCH (08:23)
[2022-01-24] MEDS: CALCITRIOL 0.25 MCG CAP (S0169) PO SCH (08:23)
[2022-01-24] MEDS: HEPARIN SOD (PORCINE) 5000UNITS/ML 1ML VIAL/SYRINGE SQ SCH ×2 (08:24→21:04)
[2022-01-24] MEDS: FIDAXOMICIN 200 MG TAB (DIFICID) PO SCH (08:24)
[2022-01-24] MEDS: ASPIRIN 81MG ENTERIC TABLET PO SCH (08:24)
[2022-01-24] MEDS: SIMVASTATIN 40 MG TAB PO SCH (08:30)
[2022-01-24 22:00] VITALS: BP 133/77
[2022-01-25 06:00] VITALS: BP 104/64
[2022-01-25] MEDS: HEPARIN SOD (PORCINE) 5000UNITS/ML 1ML VIAL/SYRINGE SQ SCH ×2 (06:47→20:08)
[2022-01-25] MEDS: SIMVASTATIN 40 MG TAB PO SCH (06:47)
[2022-01-25] MEDS: LOPERAMIDE 2 MG CAPLET PO SCH ×2 (06:47→20:07)
[2022-01-25] MEDS: PANTOPRAZOLE 40MG TAB (PROTONIX) PO SCH (06:48)
[2022-01-25] MEDS: CALCITRIOL 0.25 MCG CAP (S0169) PO SCH (06:48)
[2022-01-25] MEDS: LACTOBACILLUS ACIDOPHILUS CAP (BACID) PO SCH ×2 (06:48→17:28)
[2022-01-25] MEDS: ASPIRIN 81MG ENTERIC TABLET PO SCH (06:48)
[2022-01-25] MEDS: FIDAXOMICIN 200 MG TAB (DIFICID) PO SCH (06:48)
[2022-01-25] MEDS: allopurinoL 100 MG TAB PO SCH (06:48)
[2022-01-25] MEDS: METOPROLOL TART 12.5 MG PER 1/2 TAB PO SCH ×2 (07:12→20:08)
[2022-01-25] MEDS: INSULIN LISPRO (NovoLOG) PER UNIT SC SCH ×3 (07:12→17:29)
[2022-01-25] MEDS: IRON SUCROSE 100MG 5ML VIAL (J1756 PER 1MG) IV SCH (08:56)
[2022-01-25 08:58] LABS: HEMATOCRIT 33.3 % (42.0-52.0); HEMOGLOBIN 10.5 g/dl (13.5-17.5); MEAN CORPUSCULAR HEMOGLOBIN 30.4 pg (27.0-33.0); MEAN CORPUSCULAR HGB CONC 31.5 g/dl (32.0-36.5); MEAN CORPUSCULAR VOLUME 96.5 fl (80.0-96.0); PLATELET COUNT, AUTOMATED 323 10^3/uL (150-450); RED BLOOD COUNT 3.45 10^6/uL (4.30-6.10); WHITE BLOOD COUNT 6.3 10^3/uL (4.0-10.0)
[2022-01-25] MEDS ORDERED: SODIUM CHLORIDE 0.9% 1000ML IV PRN (09:20)
[2022-01-25 09:26] LABS: ALBUMIN 2.1 GM/DL (3.2-5.2); BILIRUBIN,TOTAL 0.5 MG/DL (0.2-1.0); CALCIUM LEVEL 8.5 MG/DL (8.5-10.1); CREATININE FOR GFR 6.02 MG/DL (0.70-1.30); GLOMERULAR FILTRATION RATE 10.3 (>56); POTASSIUM SERUM 4.8 MEQ/L (3.5-5.1)
[2022-01-26 06:00] VITALS: BP 107/68
[2022-01-26] MEDS: INSULIN LISPRO (NovoLOG) PER UNIT SC SCH ×3 (07:30→16:48)
[2022-01-26] MEDS: HEPARIN SOD (PORCINE) 5000UNITS/ML 1ML VIAL/SYRINGE SQ SCH ×2 (08:55→20:15)
[2022-01-26] MEDS: PANTOPRAZOLE 40MG TAB (PROTONIX) PO SCH (08:57)
[2022-01-26] MEDS: ASPIRIN 81MG ENTERIC TABLET PO SCH (08:58)
[2022-01-26] MEDS: LOPERAMIDE 2 MG CAPLET PO SCH ×2 (08:58→20:12)
[2022-01-26] MEDS: FIDAXOMICIN 200 MG TAB (DIFICID) PO SCH (08:58)
[2022-01-26] MEDS: allopurinoL 100 MG TAB PO SCH (08:58)
[2022-01-26] MEDS: SIMVASTATIN 40 MG TAB PO SCH (08:58)
[2022-01-26] MEDS: METOPROLOL TART 12.5 MG PER 1/2 TAB PO SCH ×2 (08:58→20:14)
[2022-01-26] MEDS: LACTOBACILLUS ACIDOPHILUS CAP (BACID) PO SCH ×2 (08:58→17:11)
[2022-01-26] MEDS: RAMELTEON 8 MG TAB (ROZEREM) PO PRN (20:17)
[2022-01-27 06:00] VITALS: BP 153/85
[2022-01-27] MEDS ORDERED: SODIUM CHLORIDE 0.9% 1000ML IV PRN (06:00)
[2022-01-27] MEDS: SIMVASTATIN 40 MG TAB PO SCH (06:29)
[2022-01-27] MEDS: ASPIRIN 81MG ENTERIC TABLET PO SCH (06:29)
[2022-01-27] MEDS: INSULIN LISPRO (NovoLOG) PER UNIT SC SCH (06:29)
[2022-01-27 06:30] VITALS: BP 153/85
[2022-01-27] MEDS: LACTOBACILLUS ACIDOPHILUS CAP (BACID) PO SCH (06:30)
[2022-01-27] MEDS: allopurinoL 100 MG TAB PO SCH (06:30)
[2022-01-27] MEDS: PANTOPRAZOLE 40MG TAB (PROTONIX) PO SCH (06:30)
[2022-01-27] MEDS: METOPROLOL TART 12.5 MG PER 1/2 TAB PO SCH (06:30)
[2022-01-27] MEDS: LOPERAMIDE 2 MG CAPLET PO SCH (06:30)
[2022-01-27] MEDS: HEPARIN SOD (PORCINE) 5000UNITS/ML 1ML VIAL/SYRINGE SQ SCH (06:32)
[2022-01-27] MEDS: FIDAXOMICIN 200 MG TAB (DIFICID) PO SCH (06:33)
[2022-01-27 08:53] LABS: BASO # 0.1 10^3/uL (0.0-0.2); BASO % 1.5 % (0.0-1.0); EOS # 0.3 10^3/uL (0.0-0.5); EOS % 5.2 % (0.0-3.0); HEMATOCRIT 28.5 % (42.0-52.0); HEMOGLOBIN 8.7 g/dl (13.5-17.5); LYMPH # 1.4 10^3/uL (1.5-5.0); LYMPH % 29.8 % (24.0-44.0); MEAN CORPUSCULAR HEMOGLOBIN 29.6 pg (27.0-33.0); MEAN CORPUSCULAR HGB CONC 30.5 g/dl (32.0-36.5); MEAN CORPUSCULAR VOLUME 96.9 fl (80.0-96.0); MONO # 0.4 10^3/uL (0.0-0.8); NEUTROPHILS # 2.6 10^3/uL (1.5-8.5); NEUTROPHILS % 54.1 % (36.0-66.0); PLATELET COUNT, AUTOMATED 269 10^3/uL (150-450); RED BLOOD COUNT 2.94 10^6/uL (4.30-6.10); WHITE BLOOD COUNT 4.8 10^3/uL (4.0-10.0)
[2022-01-27] MEDS: IRON SUCROSE 100MG 5ML VIAL (J1756 PER 1MG) IV SCH (09:30)
[2022-01-27] MEDS ORDERED: FIDA200TA PO ×2 (09:51→09:52)
[2022-01-27 11:11] LABS: ALBUMIN 1.9 GM/DL (3.2-5.2); BILIRUBIN,TOTAL 0.4 MG/DL (0.2-1.0); CALCIUM LEVEL 7.9 MG/DL (8.5-10.1); CREATININE FOR GFR 4.12 MG/DL (0.70-1.30); GLOMERULAR FILTRATION RATE 15.9 (>56); MAGNESIUM LEVEL 1.9 MG/DL (1.8-2.4); POTASSIUM SERUM 3.7 MEQ/L (3.5-5.1)
[2022-01-28] MEDS ORDERED: FIDAXOMICIN 200 MG TAB (DIFICID) PO SCH (09:00)
== END 2022-01-27 12:05 | DRG 555 ==
LOC: M ED 03:01 → EDBD 03:01 → M ED INP 08:03 → ENRESERV 13:30 → M MS5PR 14:05
PROVIDERS: ADMIT Internal Medicine; ATTEND Family Medicine
PROC: 5A1D70Z Performance of Urinary Filtration, Intermittent, Less than 6 Hours Per Day (ICD-10-PCS; principal; 2022-01-23)
DX: M62.81 Muscle weakness (generalized) (principal); N18.6 End stage renal disease; L03.116 Cellulitis of left lower limb; I13.2 Hypertensive heart and chronic kidney disease with heart failure and with stage 5 chronic kidney disease, or end stage renal disease; M86.9 Osteomyelitis, unspecified; E46 Unspecified protein-calorie malnutrition; A04.72 Enterocolitis due to Clostridium difficile, not specified as recurrent; Z99.2 Dependence on renal dialysis; I48.91 Unspecified atrial fibrillation; E11.22 Type 2 diabetes mellitus with diabetic chronic kidney disease; D63.1 Anemia in chronic kidney disease; I73.9 Peripheral vascular disease, unspecified; M10.9 Gout, unspecified; Z89.511 Acquired absence of right leg below knee; Z87.891 Personal history of nicotine dependence; Z79.82 Long term (current) use of aspirin; Z79.899 Other long term (current) drug therapy; Z91.011 Allergy to milk products; E11.69 Type 2 diabetes mellitus with other specified complication; I50.9 Heart failure, unspecified; M25.551 Pain in right hip

== ENCOUNTER → 2022-05-16 | Outpatient (CLI) | payer OTHER ==
[~2022-05-16] MED LIST changes: +LOPE1CAP5 PO; +LOPR1TAB6 PO; +PANT-23 PO
== END ==
LOC: M LABSMTC 10:33
PROVIDERS: ATTEND Anesthesiology
DX: Z01.812 Encounter for preprocedural laboratory examination (principal); Z11.52 Encounter for screening for COVID-19

== ENCOUNTER 2022-05-19 09:56 | Day surgery (SDC) | payer OTHER ==
[~2022-05-19] VITALS: Ht 170.2 cm; Wt 54.3 kg
[~2022-05-19 09:56] MED LIST changes: +CelecoXIB 400 MG CAP PO ONE
[2022-05-19] MEDS ORDERED: LIDOCAINE 1% SDV 5ML VIAL SC PRN (10:20)
[2022-05-19] MEDS ORDERED: D5W/0.2% SODIUM CHLORIDE 1,000 ML IV SCH (10:20)
[2022-05-19] MEDS ORDERED: BOTOX THERAPEUTIC 100 UNIT VIAL (J0585 PER 1 UNIT) As Ordered ONE (11:25)
[2022-05-19] MEDS ORDERED: propofoL 200 MG/20 ML VIAL As Ordered ONE (15:54)
[2022-05-19] MEDS ORDERED: MIDAZOLAM INJ 2MG/2ML VIAL (J2250 PER 1MG) As Ordered ONE (15:55)
[2022-05-19] MEDS ORDERED: fentaNYL 100 MCG/2 ML INJECTION As Ordered ONE (15:55)
[2022-05-19] MEDS ORDERED: fentaNYL 100 MCG/2 ML INJECTION IV PRN (16:30)
[2022-05-19] MEDS ORDERED: ONDANSETRON 4MG 2ML VIAL IV PRN (16:30)
[2022-05-19] MEDS ORDERED: PERCOCET 5MG/325MG TAB PO PRN (16:30)
[2022-05-19] MEDS ORDERED: MORPHINE 2 MG/ML 1ML VIAL IV PRN (16:30)
[2022-05-19 17:32] VITALS: BP 104/60
== END 2022-05-19 19:30 | disposition home or self-care (01) ==
LOC: M SDC 09:56
PROVIDERS: ATTEND Surgery
DX: K46.9 Unspecified abdominal hernia without obstruction or gangrene (principal); R26.2 Difficulty in walking, not elsewhere classified; N18.6 End stage renal disease; Z99.2 Dependence on renal dialysis; I12.0 Hypertensive chronic kidney disease with stage 5 chronic kidney disease or end stage renal disease; I48.91 Unspecified atrial fibrillation; E11.65 Type 2 diabetes mellitus with hyperglycemia; K25.9 Gastric ulcer, unspecified as acute or chronic, without hemorrhage or perforation; E11.22 Type 2 diabetes mellitus with diabetic chronic kidney disease; Z86.19 Personal history of other infectious and parasitic diseases; E78.00 Pure hypercholesterolemia, unspecified; M10.9 Gout, unspecified; F17.210 Nicotine dependence, cigarettes, uncomplicated; Z79.899 Other long term (current) drug therapy; Z79.01 Long term (current) use of anticoagulants; Z79.82 Long term (current) use of aspirin; Z88.5 Allergy status to narcotic agent; Z91.011 Allergy to milk products; Z89.511 Acquired absence of right leg below knee
CPT/HCPCS: 36415; 64647; 84132; J0585; J2250; J3010

== ENCOUNTER → 2022-06-25 | Outpatient (CLI) | payer MEDICARE, OTHER ==
[~2022-06-25] MED LIST changes: -CelecoXIB 400 MG CAP PO ONE; +TUMS500C PO
== END ==
LOC: M LABSMTC 11:28
PROVIDERS: ATTEND Anesthesiology
DX: Z01.818 Encounter for other preprocedural examination (principal); Z11.52 Encounter for screening for COVID-19

== ENCOUNTER 2022-06-28 06:03 | Inpatient (IN) | payer MEDICARE ==
[~2022-06-28] VITALS: Ht 170.2 cm; Wt 101.6 kg
[2022-06-28] MEDS ORDERED: D5W/0.2% SODIUM CHLORIDE 1,000 ML IV SCH (06:40)
[2022-06-28] MEDS ORDERED: FERR325T3 PO (06:46)
[2022-06-28] MEDS ORDERED: SEVOFLURANE INHAL SOLN 250 ML BTL As Ordered ONE (06:53)
[2022-06-28] MEDS ORDERED: LACRILUBE (AKWA TEARS) OPHTH OINT 3.5 GM As Ordered ONE (07:03)
[2022-06-28] MEDS ORDERED: propofoL 200 MG/20 ML VIAL As Ordered ONE ×2 (07:05→12:34)
[2022-06-28] MEDS ORDERED: dexameTHASONE 4 MG/ML 1ML VIAL (J1100 PER 1MG) As Ordered ONE (07:06)
[2022-06-28] MEDS ORDERED: ONDANSETRON 4MG 2ML VIAL As Ordered ONE (07:06)
[2022-06-28] MEDS ORDERED: MIDAZOLAM INJ 2MG/2ML VIAL (J2250 PER 1MG) As Ordered ONE (07:06)
[2022-06-28] MEDS ORDERED: ROCURONIUM BROMIDE 50 MG/5 ML VIAL As Ordered ONE (07:06)
[2022-06-28] MEDS ORDERED: LIDOCAINE 2% 100MG/5ML SDV (FOR ANES.) As Ordered ONE ×3 (07:06→11:12)
[2022-06-28] MEDS ORDERED: fentaNYL 250 MCG/5 ML INJECTION As Ordered ONE (07:06)
[2022-06-28] MEDS ORDERED: LIDOCAINE 1% SDV 30ML VIAL As Ordered ONE (07:11)
[2022-06-28] MEDS ORDERED: BUPIVACAINE HCL 0.25% 30ML VIAL As Ordered ONE (07:12)
[2022-06-28] MEDS ORDERED: BUPIVACAINE LIPOSOME/PF 1.3% 20ML VIAL (13.3MG/ML)(EXPAREL) As Ordered ONE (07:12)
[2022-06-28] MEDS ORDERED: cefoTEtan DISODIUM 2 GM in D5W MINI-BAG PLUS 50 ML IV ONE (07:15)
[2022-06-28] MEDS ORDERED: ENOXAPARIN 40MG/0.4ML SYRINGE (J1650 PER 10MG) SC ONE (07:15)
[2022-06-28] MEDS ORDERED: CelecoXIB 400 MG CAP PO ONE (07:15)
[2022-06-28] MEDS ORDERED: METO1TAB7 PO (07:23)
[2022-06-28] MEDS ORDERED: HOME MED LIST COMPLETE! XX SCH (07:25)
[2022-06-28] MEDS: FUROSEMIDE 40 MG TAB PO SCH (09:00)
[2022-06-28] MEDS: METOPROLOL SUCC (TopROL XL) 50MG **XL** TAB PO SCH (09:00)
[2022-06-28] MEDS ORDERED: VECURONIUM BROMIDE 10MG VIAL As Ordered ONE (09:03)
[2022-06-28] MEDS ORDERED: ACETAMINOPHEN 1000MG 100ML IV BAG As Ordered ONE (12:37)
[2022-06-28] MEDS ORDERED: ONDANSETRON 4MG 2ML VIAL IV PRN ×2 (12:45→13:45)
[2022-06-28] MEDS ORDERED: LR 1,000 ML IV SCH (12:45)
[2022-06-28] MEDS ORDERED: HYDROMORPHONE HCL 0.5 MG/ 0.5 ML SYRINGE (J1170 PER 1) IV PRN (12:45)
[2022-06-28] MEDS ORDERED: oxyCODONE 5MG TAB PO PRN (12:45)
[2022-06-28] MEDS ORDERED: fentaNYL 100 MCG/2 ML INJECTION IV PRN (12:45)
[2022-06-28] MEDS ORDERED: ACETAMINOPHEN TAB 650MG DOSE (2X325MG) PO PRN (13:20)
[2022-06-28] MEDS ORDERED: PERCOCET 5MG/325MG TAB PO PRN ×2 (13:20)
[2022-06-28] MEDS ORDERED: ACETAMINOPHEN 325 MG TAB PO PRN (13:20)
[2022-06-28] MEDS ORDERED: INSULIN LISPRO (NovoLOG) PER UNIT SC PRN (13:25)
[2022-06-28] MEDS ORDERED: CALCIUM CARBONATE 500 MG CHEW U/D PO PRN (13:45)
[2022-06-28] MEDS ORDERED: GLUCOSE 4GM CHEW TABLET PO PRN (13:45)
[2022-06-28] MEDS ORDERED: GLUCAGON INJ 1MG VIAL SC PRN (13:45)
[2022-06-28] MEDS ORDERED: DEXTROSE 50% 50 ML SYRINGE IV PRN (13:45)
[2022-06-28 14:17] VITALS: BP 93/55
[2022-06-28 14:47] VITALS: BP 92/56
[2022-06-28 15:17] VITALS: BP 92/62
[2022-06-28] MEDS: allopurinoL 100 MG TAB PO SCH (15:54)
[2022-06-28] MEDS: ASPIRIN 81MG ENTERIC TABLET PO SCH (15:54)
[2022-06-28] MEDS: FERROUS SULFATE 325MG TAB PO SCH (15:54)
[2022-06-28] MEDS: CALCITRIOL 0.25 MCG CAP (S0169) PO SCH (15:54)
[2022-06-28] MEDS: SIMVASTATIN 40 MG TAB PO SCH (15:54)
[2022-06-28 16:17] VITALS: BP 99/67
[2022-06-28 17:17] VITALS: BP 99/64
[2022-06-28] MEDS ORDERED: INSULIN LISPRO (NovoLOG) PER UNIT SC SCH ×2 (18:00→21:00)
[2022-06-28 19:17] VITALS: BP 102/82
[2022-06-29] VITALS: BP 123/52
[2022-06-29 07:04] LABS: BASO % 0.2 % (0.0-1.0); EOS % 0.1 % (0.0-3.0); HEMATOCRIT 34.9 % (42.0-52.0); HEMOGLOBIN 11.4 g/dl (13.5-17.5); LYMPH # 2.1 10^3/uL (1.5-5.0); LYMPH % 20.7 % (24.0-44.0); MEAN CORPUSCULAR HEMOGLOBIN 35.2 pg (27.0-33.0); MEAN CORPUSCULAR HGB CONC 32.7 g/dl (32.0-36.5); MEAN CORPUSCULAR VOLUME 107.7 fl (80.0-96.0); MONO # 0.8 10^3/uL (0.0-0.8); MONO % 7.5 % (2.0-8.0); NEUTROPHILS # 7.3 10^3/uL (1.5-8.5); NEUTROPHILS % 71.1 % (36.0-66.0); PLATELET COUNT, AUTOMATED 222 10^3/uL (150-450); RED BLOOD COUNT 3.24 10^6/uL (4.30-6.10); WHITE BLOOD COUNT 10.2 10^3/uL (4.0-10.0)
[2022-06-29] MEDS ORDERED: INSULIN LISPRO (NovoLOG) PER UNIT SC SCH (07:30)
[2022-06-29 07:40] LABS: CALCIUM LEVEL 7.6 MG/DL (8.8-10.2); CREATININE FOR GFR 8.98 MG/DL (0.70-1.30); GLOMERULAR FILTRATION RATE 7.8 (>49); POTASSIUM SERUM 5.3 MEQ/L (3.5-5.1)
[2022-06-29 08:00] VITALS: BP 113/75
[2022-06-29 09:00] VITALS: BP 98/54
[2022-06-29] MEDS: METOPROLOL SUCC (TopROL XL) 50MG **XL** TAB PO SCH (09:00)
[2022-06-29] MEDS ORDERED: ENOXAPARIN 30MG/0.3ML SYRINGE (J1650 PER 10MG) SC SCH (09:00)
[2022-06-29] MEDS ORDERED: HYDR-3713 PO (09:28)
[2022-06-29] MEDS: FUROSEMIDE 40 MG TAB PO SCH (09:35)
[2022-06-29] MEDS: ASPIRIN 81MG ENTERIC TABLET PO SCH (09:35)
[2022-06-29] MEDS: CALCITRIOL 0.25 MCG CAP (S0169) PO SCH (09:35)
[2022-06-29] MEDS: FERROUS SULFATE 325MG TAB PO SCH (09:35)
[2022-06-29] MEDS: allopurinoL 100 MG TAB PO SCH (09:35)
[2022-06-29] MEDS: SIMVASTATIN 40 MG TAB PO SCH (09:35)
[2022-06-29 10:00] VITALS: BP 98/56
== END 2022-06-29 11:13 | disposition home health service (06) | DRG 350 ==
LOC: M OR 06:03 → M MSPAV 14:18
PROVIDERS: ADMIT Surgery; ATTEND Surgery
PROC: 0YB Anatomical Regions, Lower Extremities, Excision (ICD-10-PCS; 2022-06-28)
PROC: 0YB Anatomical Regions, Lower Extremities, Excision (ICD-10-PCS; 2022-06-28)
PROC: 8E0W4CZ Robotic Assisted Procedure of Trunk Region, Percutaneous Endoscopic Approach (ICD-10-PCS; 2022-06-28)
PROC: 0YUA4JZ Supplement Bilateral Inguinal Region with Synthetic Substitute, Percutaneous Endoscopic Approach (ICD-10-PCS; principal; 2022-06-28 07:30)
DX: K40.20 Bilateral inguinal hernia, without obstruction or gangrene, not specified as recurrent (principal); N18.6 End stage renal disease; I12.0 Hypertensive chronic kidney disease with stage 5 chronic kidney disease or end stage renal disease; I48.91 Unspecified atrial fibrillation; E11.22 Type 2 diabetes mellitus with diabetic chronic kidney disease; F17.210 Nicotine dependence, cigarettes, uncomplicated; D17.5 Benign lipomatous neoplasm of intra-abdominal organs; K59.00 Constipation, unspecified; Z79.82 Long term (current) use of aspirin; Z79.899 Other long term (current) drug therapy; Z89.511 Acquired absence of right leg below knee; Z99.2 Dependence on renal dialysis; Z79.4 Long term (current) use of insulin; Z88.8 Allergy status to other drugs, medicaments and biological substances

== ENCOUNTER → 2022-09-01 | Outpatient (CLI) | payer MEDICARE, OTHER ==
[~2022-09-01] MED LIST changes: +FERR325T3 PO; +HYDR-3713 PO
== END ==
LOC: M RAD 10:33
PROVIDERS: ATTEND Surgery Vascular Surgery
DX: N18.6 End stage renal disease (principal)

== ENCOUNTER 2022-10-17 08:39 | Observation (INO) | payer OTHER ==
[~2022-10-17] VITALS: Ht 170.2 cm; Wt 104.5 kg
[2022-10-17] MEDS ORDERED: MORPHINE 4 MG/ML 1ML VIAL IV PRN (09:05)
[2022-10-17] MEDS ORDERED: ONDANSETRON 4MG 2ML VIAL IV ONE (09:05)
[2022-10-17] MEDS ORDERED: NS 1,000 ML IV SCH (09:05)
[2022-10-17 09:44] LABS: BASO # 0.1 10^3/uL (0.0-0.2); BASO % 0.7 % (0.0-1.0); EOS # 0.1 10^3/uL (0.0-0.5); EOS % 1.1 % (0.0-3.0); HEMATOCRIT 40.4 % (42.0-52.0); HEMOGLOBIN 12.7 g/dl (13.5-17.5); LYMPH # 1.5 10^3/uL (1.5-5.0); LYMPH % 17.2 % (24.0-44.0); MEAN CORPUSCULAR HEMOGLOBIN 33.2 pg (27.0-33.0); MEAN CORPUSCULAR HGB CONC 31.4 g/dl (32.0-36.5); MEAN CORPUSCULAR VOLUME 105.8 fl (80.0-96.0); MONO # 0.4 10^3/uL (0.0-0.8); NEUTROPHILS # 6.7 10^3/uL (1.5-8.5); NEUTROPHILS % 75.5 % (36.0-66.0); PLATELET COUNT, AUTOMATED 295 10^3/uL (150-450); RED BLOOD COUNT 3.82 10^6/uL (4.30-6.10); WHITE BLOOD COUNT 8.8 10^3/uL (4.0-10.0)
[2022-10-17 10:24] LABS: ALBUMIN 3.7 G/DL (3.2-5.2); BILIRUBIN,DIRECT 0.2 MG/DL (<0.4); BILIRUBIN,TOTAL 0.7 MG/DL (0.3-1.2); CALCIUM LEVEL 8.2 MG/DL (8.3-10.6); CREATININE FOR GFR 8.06 MG/DL (0.70-1.30); GLOMERULAR FILTRATION RATE 7.3 (>49); POTASSIUM SERUM 4.2 MMOL/L (3.5-5.1); TOTAL PROTEIN 8.1 G/DL (5.7-8.2)
[2022-10-17 10:42] LABS: RSV AMPLIFICATION NEGATIVE (NEGATIVE)
[2022-10-17] MEDS ORDERED: ISOVUE-370 76% 100ML VIAL As Ordered ONE (10:50)
[2022-10-17] MEDS ORDERED: metroNIDAZOLE 500 MG in IV 1 EA IV ONE (11:50)
[2022-10-17] MEDS ORDERED: CIPROFLOXACIN 400 MG in IV 1 EA IV ONE (11:50)
[2022-10-17] MEDS ORDERED: TACR0.1O4 TOP (12:26)
[2022-10-17] MEDS ORDERED: HOME MED LIST COMPLETE! XX SCH (12:30)
[2022-10-17] MEDS ORDERED: DEXTROSE 50% 50ML SYRINGE IV PRN (14:20)
[2022-10-17] MEDS ORDERED: GLUCAGON INJ 1MG VIAL SC PRN (14:20)
[2022-10-17] MEDS ORDERED: GLUCOSE 4GM CHEW TABLET PO PRN (14:20)
[2022-10-17] MEDS ORDERED: ACETAMINOPHEN 325 MG TAB PO PRN (14:20)
[2022-10-17 14:50] VITALS: BP 147/87
[2022-10-17] MEDS: CALCIUM CARBONATE 500 MG CHEW U/D PO SCH (18:00)
[2022-10-17] MEDS ORDERED: CIPROFLOXACIN 500MG TABLET PO SCH (18:00)
[2022-10-17] MEDS: APIXABAN 2.5 MG TAB (ELIQUIS) PO SCH ×2 (18:06→21:04)
[2022-10-17] MEDS: ASPIRIN 81MG ENTERIC TABLET PO SCH (18:33)
[2022-10-17] MEDS: FUROSEMIDE 40 MG TAB PO SCH (18:34)
[2022-10-17] MEDS: FERROUS SULFATE 325MG TAB PO SCH (18:34)
[2022-10-17] MEDS: METOPROLOL SUCC (TopROL XL) 50MG **XL** TAB PO SCH (18:35)
[2022-10-17] MEDS: CALCITRIOL 0.25 MCG CAP (S0169) PO SCH (18:35)
[2022-10-17] MEDS: INSULIN LISPRO (NovoLOG) PER UNIT SC SCH (18:36)
[2022-10-17] MEDS: allopurinoL 100 MG TAB PO SCH (18:36)
[2022-10-17] MEDS: SIMVASTATIN 40 MG TAB PO SCH (18:36)
[2022-10-17 21:00] VITALS: BP 116/73
[2022-10-17] MEDS ORDERED: LEVEMIR (INSULIN DETEMIR) 1 UNITS/0.01ML SC SCH (21:00)
[2022-10-17] MEDS ORDERED: INSULIN LISPRO (NovoLOG) PER UNIT SC SCH (21:00)
[2022-10-17] MEDS: metroNIDAZOLE (FLAGYL) 500MG TABLET PO SCH (21:04)
[2022-10-18] MEDS: metroNIDAZOLE (FLAGYL) 500MG TABLET PO SCH ×2 (04:49→14:13)
[2022-10-18 05:32] VITALS: BP 115/74
[2022-10-18] MEDS ORDERED: CIPROFLOXACIN 500MG TABLET PO SCH (06:00)
[2022-10-18 06:18] LABS: HEMOGLOBIN 11.3 g/dl (13.5-17.5); MEAN CORPUSCULAR HEMOGLOBIN 34.2 pg (27.0-33.0); MEAN CORPUSCULAR HGB CONC 32.3 g/dl (32.0-36.5); MEAN CORPUSCULAR VOLUME 106.1 fl (80.0-96.0); PLATELET COUNT, AUTOMATED 262 10^3/uL (150-450); WHITE BLOOD COUNT 6.6 10^3/uL (4.0-10.0)
[2022-10-18 06:52] LABS: BILIRUBIN,TOTAL 0.5 MG/DL (0.3-1.2); CALCIUM LEVEL 7.4 MG/DL (8.3-10.6); CREATININE FOR GFR 9.13 MG/DL (0.70-1.30); GLOMERULAR FILTRATION RATE 6.3 (>49); POTASSIUM SERUM 3.9 MMOL/L (3.5-5.1); TOTAL PROTEIN 6.3 G/DL (5.7-8.2)
[2022-10-18] MEDS ORDERED: SODIUM CHLORIDE 0.9% 1000ML IV PRN (07:10)
[2022-10-18] MEDS ORDERED: LIDOCAINE 1% SDV 5ML VIAL SC PRN (07:10)
[2022-10-18] MEDS ORDERED: HEPARIN 1,000UNITS/ML 10ML VIAL (FOR RADIOLOGY & DIALYSIS ONLY) IV PRN (07:10)
[2022-10-18] MEDS ORDERED: HEPARIN 1,000UNITS/ML 10ML VIAL (FOR RADIOLOGY & DIALYSIS ONLY) XX SCH (07:10)
[2022-10-18] MEDS: INSULIN LISPRO (NovoLOG) PER UNIT SC SCH ×2 (07:30→12:00)
[2022-10-18] MEDS: FUROSEMIDE 40 MG TAB PO SCH (07:56)
[2022-10-18] MEDS: APIXABAN 2.5 MG TAB (ELIQUIS) PO SCH (07:57)
[2022-10-18] MEDS: FERROUS SULFATE 325MG TAB PO SCH (07:57)
[2022-10-18] MEDS: SIMVASTATIN 40 MG TAB PO SCH (07:57)
[2022-10-18] MEDS: allopurinoL 100 MG TAB PO SCH (07:57)
[2022-10-18] MEDS: CALCITRIOL 0.25 MCG CAP (S0169) PO SCH (07:57)
[2022-10-18 07:58] VITALS: BP 115/74
[2022-10-18] MEDS: METOPROLOL SUCC (TopROL XL) 50MG **XL** TAB PO SCH (07:58)
[2022-10-18] MEDS: ASPIRIN 81MG ENTERIC TABLET PO SCH (07:58)
[2022-10-18] MEDS: CALCIUM CARBONATE 500 MG CHEW U/D PO SCH ×2 (07:58→12:30)
[2022-10-18] MEDS ORDERED: METR-265 PO (11:33)
[2022-10-18] MEDS ORDERED: CIPR-249 PO (11:33)
[2022-10-18 14:00] VITALS: BP 112/67
== END 2022-10-18 15:45 | disposition home or self-care (01) ==
LOC: EDBD 08:39 → M ED 09:31 → M ED INP 09:32 → ENRESERV 13:28 → M MSPAV 14:35
PROVIDERS: ADMIT Student in an Organized Health Care Education/Training Program; ATTEND Student in an Organized Health Care Education/Training Program
DX: K82.1 Hydrops of gallbladder (principal); K80.50 Calculus of bile duct without cholangitis or cholecystitis without obstruction; K80.20 Calculus of gallbladder without cholecystitis without obstruction; K57.32 Diverticulitis of large intestine without perforation or abscess without bleeding; A49.9 Bacterial infection, unspecified; I48.91 Unspecified atrial fibrillation; I73.9 Peripheral vascular disease, unspecified; I25.10 Atherosclerotic heart disease of native coronary artery without angina pectoris; E55.9 Vitamin D deficiency, unspecified; D50.9 Iron deficiency anemia, unspecified; M10.9 Gout, unspecified; I13.11 Hypertensive heart and chronic kidney disease without heart failure, with stage 5 chronic kidney disease, or end stage renal disease; N18.6 End stage renal disease; Z99.2 Dependence on renal dialysis; E11.22 Type 2 diabetes mellitus with diabetic chronic kidney disease; R10.811 Right upper quadrant abdominal tenderness; R10.813 Right lower quadrant abdominal tenderness; R06.02 Shortness of breath; Z91.011 Allergy to milk products; Z88.6 Allergy status to analgesic agent; Z79.899 Other long term (current) drug therapy; Z79.01 Long term (current) use of anticoagulants; Z79.82 Long term (current) use of aspirin; Z79.4 Long term (current) use of insulin; Z89.511 Acquired absence of right leg below knee; F17.210 Nicotine dependence, cigarettes, uncomplicated
CPT/HCPCS: 36415; 74177; 80048; 80053; 80076; 83605; 83690; 85025; 85027; 87040; 87077; 87186; 87631; 93005; 93041; 96365; 96367; 96375; 99285; G0257; G0378; J2270; J2405; Q9967

== ENCOUNTER 2023-06-11 11:39 | Inpatient (IN) | payer MEDICARE, OTHER ==
[2023-06-10] MEDS: LATANOPROST 0.005% OPHTH SOLN 2.5 ML OU SCH (20:00)
[~2023-06-11] VITALS: Ht 170.2 cm; Wt 104.7 kg
[2023-06-11] VITALS (20 sets, daily range): BP systolic 68–92; BP diastolic 47–57; TEMP 100.3; O2SAT 96–99
[~2023-06-11 11:39] MED LIST changes: +CIPR-249 PO; +FLUT50SP17; -FLUTISP; +GABA-284 PO; +METR-265 PO; +PRED20TA PO; +TACR0.1O4 TOP
[2023-06-11] MEDS ORDERED: ACETAMINOPHEN TAB 650MG DOSE (2X325MG) PO ONE (12:35)
[2023-06-11] MEDS ORDERED: CEFEPIME HCL 2 GM in D5W MINI-BAG PLUS 50 ML IV ONE (12:45)
[2023-06-11] MEDS ORDERED: NS 500 ML IV ONE ×5 (13:30→18:45)
[2023-06-11 14:03] LABS: HEMATOCRIT 28.9 % (42.0-52.0); HEMOGLOBIN 9.6 g/dl (13.5-17.5); MEAN CORPUSCULAR HGB CONC 33.2 g/dl (32.0-36.5); MEAN CORPUSCULAR VOLUME 105.5 fl (80.0-96.0); PLATELET COUNT, AUTOMATED 379 10^3/uL (150-450); RED BLOOD COUNT 2.74 10^6/uL (4.30-6.10)
[2023-06-11 14:18] LABS: WHITE BLOOD COUNT 33.5 10^3/uL (4.0-10.0)
[2023-06-11] MEDS ORDERED: MED REC IN PROGRESS XX SCH (14:30)
[2023-06-11 15:22] LABS: LYMPHOCYTES 1 % (16-44); METAMYELOCYTES 1 % (0-0); MONOCYTES 4 % (0-5); NEUTROPHILS 89 % (28-66); PLATELET ESTIMATE NORMAL (NORMAL)
[2023-06-11 15:23] LABS: HYPOCHROMASIA 1+
[2023-06-11 15:28] LABS: CK-MB VALUE MASS 2.3 NG/ML (<3.6)
[2023-06-11 15:35] LABS: ALBUMIN 1.9 G/DL (3.2-5.2); BILIRUBIN,DIRECT 0.3 MG/DL (<0.4); BILIRUBIN,TOTAL 0.5 MG/DL (0.3-1.2); CALCIUM LEVEL 7.7 MG/DL (8.3-10.6); CREATININE FOR GFR 8.25 MG/DL (0.70-1.30); GLOMERULAR FILTRATION RATE 7.1 (>49); INR 1.47; MB/CK RELATIVE INDEX 0.2 (< OR =4); PROTHROMBIN TIME 17.5 SECONDS (12.5-14.5); TOTAL PROTEIN 6.4 G/DL (5.7-8.2)
[2023-06-11 15:36] LABS: PARTIAL THROMBOPLASTIN TIME 29.6 SECONDS (24.8-34.2)
[2023-06-11] MEDS ORDERED: VANCOMYCIN HCL 1,000 MG, VIAL MATE ADAPTER 1 EACH in D5W 250 ML IV ONE (16:00)
[2023-06-11 16:58] LABS: CK-MB VALUE MASS 2.2 NG/ML (<3.6)
[2023-06-11 17:01] LABS: MB/CK RELATIVE INDEX 0.23 (< OR =4)
[2023-06-11] MEDS ORDERED: VELP5CHW PO (18:52)
[2023-06-11] MEDS ORDERED: LANT1000 PO (18:52)
[2023-06-11] MEDS ORDERED: LANTINJ4 SC (18:52)
[2023-06-11] MEDS ORDERED: PANT40TA29 PO (18:52)
[2023-06-11] MEDS ORDERED: PRED20TA PO (18:52)
[2023-06-11] MEDS ORDERED: MIDO5TA PO (18:52)
[2023-06-11] MEDS ORDERED: BIMA01SOL OU (18:52)
[2023-06-11] MEDS ORDERED: FLUT50SP17 NARES (18:52)
[2023-06-11] MEDS ORDERED: GABA-284 PO (18:52)
[2023-06-11] MEDS ORDERED: HOME MED LIST COMPLETE! XX SCH (18:55)
[2023-06-11] MEDS ORDERED: AMIODARONE HCL 150 MG in IV 1 EA IV ONE (19:00)
[2023-06-11] MEDS ORDERED: AMIODARONE HCL 360 MG in IV 1 EA IV SCH (20:00)
[2023-06-11] MEDS: ACETAMINOPHEN TAB 650MG DOSE (2X325MG) PO PRN (20:23)
[2023-06-11] MEDS ORDERED: AMIODARONE HCL 150 MG in IV 1 EA IV PRN (21:00)
[2023-06-11] MEDS ORDERED: LEVEMIR (INSULIN DETEMIR) 1 UNITS/0.01ML SC SCH (21:00)
[2023-06-11] MEDS: CHLORHEXIDINE GLUCONATE 0.12 % 15ML UDC (PERIDEX ORAL RINSE) MT SCH (21:00)
[2023-06-11] MEDS: APIXABAN 2.5 MG TAB (ELIQUIS) PO SCH (22:15)
[2023-06-12] VITALS (60 sets, daily range): BP systolic 57–106; BP diastolic 36–65; TEMP 97.3–98.4; O2SAT 94–100
[2023-06-12] MEDS: AMIODARONE HCL 360 MG in IV 1 EA IV SCH ×2 (02:45→14:03)
[2023-06-12 05:03] LABS: HEMATOCRIT 30.8 % (42.0-52.0); HEMOGLOBIN 10.4 g/dl (13.5-17.5); MEAN CORPUSCULAR HEMOGLOBIN 35.3 pg (27.0-33.0); MEAN CORPUSCULAR HGB CONC 33.8 g/dl (32.0-36.5); MEAN CORPUSCULAR VOLUME 104.4 fl (80.0-96.0); PLATELET COUNT, AUTOMATED 289 10^3/uL (150-450); RED BLOOD COUNT 2.95 10^6/uL (4.30-6.10)
[2023-06-12 05:48] LABS: ATYPICAL LYMPH 2 % (0-5); LYMPHOCYTES 3 % (16-44); METAMYELOCYTES 1 % (0-0); MONOCYTES 4 % (0-5); MYELOCYTES 4 % (0-0); NEUTROPHILS 86 % (28-66)
[2023-06-12 05:49] LABS: HYPERSEGMENTED POLYS 1+; PLATELET ESTIMATE NORMAL (NORMAL)
[2023-06-12] MEDS ORDERED: INSULIN LISPRO (NovoLOG) PER UNIT SC SCH (06:00)
[2023-06-12 06:51] LABS: ALBUMIN 1.6 G/DL (3.2-5.2); BILIRUBIN,DIRECT 0.3 MG/DL (<0.4); BILIRUBIN,TOTAL 0.4 MG/DL (0.3-1.2); CALCIUM LEVEL 7.5 MG/DL (8.3-10.6); CREATININE FOR GFR 8.51 MG/DL (0.70-1.30); GLOMERULAR FILTRATION RATE 6.9 (>49); MAGNESIUM LEVEL 1.9 MG/DL (1.8-2.4); POTASSIUM SERUM 4.7 MMOL/L (3.5-5.1); TOTAL PROTEIN 5.9 G/DL (5.7-8.2)
[2023-06-12] MEDS: CHLORHEXIDINE GLUCONATE 0.12 % 15ML UDC (PERIDEX ORAL RINSE) MT SCH ×2 (08:09→20:29)
[2023-06-12] MEDS ORDERED: DEXTROSE 50% 50ML SYRINGE IV PRN (08:10)
[2023-06-12] MEDS: ACETAMINOPHEN TAB 650MG DOSE (2X325MG) PO PRN (08:10)
[2023-06-12] MEDS ORDERED: GLUCOSE 4GM CHEW TABLET PO PRN (08:10)
[2023-06-12] MEDS: PANTOPRAZOLE 40MG TAB (PROTONIX) PO SCH (08:10)
[2023-06-12] MEDS ORDERED: GLUCAGON INJ 1MG VIAL SC PRN (08:10)
[2023-06-12] MEDS: allopurinoL 100 MG TAB PO SCH (08:11)
[2023-06-12] MEDS: ASPIRIN 81MG ENTERIC TABLET PO SCH (08:12)
[2023-06-12] MEDS: APIXABAN 2.5 MG TAB (ELIQUIS) PO SCH ×2 (08:12→20:28)
[2023-06-12] MEDS: SIMVASTATIN 40 MG TAB PO SCH (08:12)
[2023-06-12] MEDS: FLUTICASONE PROP 0.05% NASAL SPRAY 16 GM (FLONASE) NARES SCH (08:13)
[2023-06-12 08:17] LABS: VANCOMYCIN RANDOM 12.5 UG/ML
[2023-06-12] MEDS ORDERED: VANCOMYCIN HCL 500 MG in D5W MINI-BAG PLUS 100 ML IV ONE (08:30)
[2023-06-12] MEDS ORDERED: MIDODRINE 5 MG TAB PO SCH (09:00)
[2023-06-12] MEDS ORDERED: GABAPENTIN 400MG CAP PO SCH (09:00)
[2023-06-12] MEDS: LEVEMIR (INSULIN DETEMIR) 1 UNITS/0.01ML SC SCH ×2 (09:47→20:28)
[2023-06-12] MEDS ORDERED: AMIODARONE HCL 150 MG in IV 1 EA IV STA (10:49)
[2023-06-12] MEDS: MIDODRINE 5 MG TAB PO SCH ×2 (12:14→15:28)
[2023-06-12] MEDS: INSULIN LISPRO (NovoLOG) PER UNIT SC SCH ×3 (12:29→20:27)
[2023-06-12] MEDS ORDERED: PHENYLEPHRINE 10MG/ML 1ML VIAL As Ordered ONE (12:54)
[2023-06-12] MEDS ORDERED: PHENYLEPHRINE HCL INJ 50 MG in D5W 500 ML IV SCH (13:00)
[2023-06-12] MEDS ORDERED: CEFEPIME HCL 1 GM in D5W MINI-BAG PLUS 50 ML IV SCH (14:00)
[2023-06-12] MEDS: GABAPENTIN 100 MG CAP PO SCH ×2 (15:28→20:28)
[2023-06-12] MEDS ORDERED: VANCOMYCIN HCL 500 MG in D5W MINI-BAG PLUS 100 ML IV SCH (16:00)
[2023-06-12] MEDS ORDERED: VANCOMYCIN HCL 1,000 MG, VIAL MATE ADAPTER 1 EACH in D5W 250 ML IV SCH (16:00)
[2023-06-12] MEDS: LATANOPROST 0.005% OPHTH SOLN 2.5 ML OU SCH (20:27)
[2023-06-12] MEDS ORDERED: METOPROLOL 5 MG/5 ML VIAL IV STA (21:12)
[2023-06-12] MEDS ORDERED: MAG SULF 1GM/100ML (MAG RUN) 1 GM in IV 1 EA IV ONE (21:15)
[2023-06-13] VITALS (96 sets, daily range): BP systolic 65–122; BP diastolic 40–71; TEMP 96.3–99.4; O2SAT 90–100
[2023-06-13 04:40] LABS: HEMATOCRIT 30.5 % (42.0-52.0); HEMOGLOBIN 10.4 g/dl (13.5-17.5); MEAN CORPUSCULAR HEMOGLOBIN 34.4 pg (27.0-33.0); MEAN CORPUSCULAR HGB CONC 34.1 g/dl (32.0-36.5); PLATELET COUNT, AUTOMATED 284 10^3/uL (150-450); RED BLOOD COUNT 3.02 10^6/uL (4.30-6.10); WHITE BLOOD COUNT 25.9 10^3/uL (4.0-10.0)
[2023-06-13] MEDS: ACETAMINOPHEN TAB 650MG DOSE (2X325MG) PO PRN ×2 (04:50→20:18)
[2023-06-13 04:58] LABS: VANCOMYCIN RANDOM 16.5 UG/ML
[2023-06-13 05:10] LABS: EOSINOPHILS 1 % (0-3); HYPERSEGMENTED POLYS 1+; LYMPHOCYTES 13 % (16-44); METAMYELOCYTES 2 % (0-0); MONOCYTES 8 % (0-5); MYELOCYTES 2 % (0-0); NEUTROPHILS 73 % (28-66); PLATELET CLUMPS MODERATE AMT; PLATELET ESTIMATE NORMAL (NORMAL)
[2023-06-13] MEDS: PHENYLEPHRINE HCL INJ 50 MG in D5W 495 ML IV SCH ×2 (05:32→18:07)
[2023-06-13 05:43] LABS: ALBUMIN 1.4 G/DL (3.2-5.2); BILIRUBIN,TOTAL 0.6 MG/DL (0.3-1.2); CALCIUM LEVEL 7.3 MG/DL (8.3-10.6); CREATININE FOR GFR 9.44 MG/DL (0.70-1.30); GLOMERULAR FILTRATION RATE 6.1 (>49); MAGNESIUM LEVEL 2.1 MG/DL (1.8-2.4); PHOSPHORUS LEVEL 5.8 MG/DL (2.4-5.1); POTASSIUM SERUM 4.2 MMOL/L (3.5-5.1); TOTAL PROTEIN 5.7 G/DL (5.7-8.2)
[2023-06-13] MEDS ORDERED: SODIUM CHLORIDE 0.9% 1000ML IV PRN (07:30)
[2023-06-13] MEDS ORDERED: HEPARIN 1,000UNITS/ML 10ML VIAL (FOR RADIOLOGY & DIALYSIS ONLY) XX SCH (07:30)
[2023-06-13] MEDS: INSULIN LISPRO (NovoLOG) PER UNIT SC SCH ×4 (07:30→20:24)
[2023-06-13] MEDS ORDERED: HEPARIN 1,000UNITS/ML 10ML VIAL (FOR RADIOLOGY & DIALYSIS ONLY) IV PRN (07:30)
[2023-06-13] MEDS ORDERED: GLUCAGON INJ 1MG VIAL SC PRN (07:55)
[2023-06-13] MEDS ORDERED: DEXTROSE 50% 50ML SYRINGE IV PRN (07:55)
[2023-06-13] MEDS ORDERED: GLUCOSE 4GM CHEW TABLET PO PRN (07:55)
[2023-06-13] MEDS: GABAPENTIN 100 MG CAP PO SCH ×3 (08:39→20:18)
[2023-06-13] MEDS: SIMVASTATIN 40 MG TAB PO SCH (08:39)
[2023-06-13] MEDS: APIXABAN 2.5 MG TAB (ELIQUIS) PO SCH (08:40)
[2023-06-13] MEDS: ASPIRIN 81MG ENTERIC TABLET PO SCH (08:40)
[2023-06-13] MEDS: allopurinoL 100 MG TAB PO SCH (08:40)
[2023-06-13] MEDS: MIDODRINE 5 MG TAB PO SCH ×3 (08:40→16:18)
[2023-06-13] MEDS: CHLORHEXIDINE GLUCONATE 0.12 % 15ML UDC (PERIDEX ORAL RINSE) MT SCH ×2 (08:41→20:18)
[2023-06-13] MEDS: PANTOPRAZOLE 40MG TAB (PROTONIX) PO SCH (08:41)
[2023-06-13] MEDS: FLUTICASONE PROP 0.05% NASAL SPRAY 16 GM (FLONASE) NARES SCH (08:41)
[2023-06-13] MEDS ORDERED: ISOVUE-370 76% 100ML VIAL As Ordered ONE (10:37)
[2023-06-13] MEDS: [UNRECOGNIZED DRUG - REMARK] XX SCH (11:41)
[2023-06-13] MEDS ORDERED: VANCOMYCIN HCL 500 MG in D5W MINI-BAG PLUS 100 ML IV ONE (12:00)
[2023-06-13] MEDS ORDERED: PHENYLEPHRINE HCL INJ 50 MG in D5W 500 ML IV SCH (13:00)
[2023-06-13] MEDS ORDERED: DIGOXIN INJ 0.5 MG/2 ML AMP IV ONE ×2 (17:15→23:30)
[2023-06-13] MEDS ORDERED: CEFEPIME HCL 1 GM in D5W MINI-BAG PLUS 50 ML IV SCH (18:00)
[2023-06-13] MEDS: LATANOPROST 0.005% OPHTH SOLN 2.5 ML OU SCH (20:25)
[2023-06-14] VITALS (79 sets, daily range): BP systolic 65–142; BP diastolic 33–70; TEMP 97.2–98.5; O2SAT 99–100
[2023-06-14] MEDS: PHENYLEPHRINE HCL INJ 50 MG in D5W 495 ML IV SCH (05:52)
[2023-06-14 06:29] LABS: HEMOGLOBIN 11.3 g/dl (13.5-17.5); MEAN CORPUSCULAR HEMOGLOBIN 34.9 pg (27.0-33.0); MEAN CORPUSCULAR HGB CONC 35.3 g/dl (32.0-36.5); MEAN CORPUSCULAR VOLUME 98.8 fl (80.0-96.0); PLATELET COUNT, AUTOMATED 265 10^3/uL (150-450); RED BLOOD COUNT 3.24 10^6/uL (4.30-6.10); WHITE BLOOD COUNT 25.7 10^3/uL (4.0-10.0)
[2023-06-14] MEDS ORDERED: HEPARIN 1,000UNITS/ML 10ML VIAL (FOR RADIOLOGY & DIALYSIS ONLY) IV PRN (06:30)
[2023-06-14] MEDS ORDERED: HEPARIN 1,000UNITS/ML 10ML VIAL (FOR RADIOLOGY & DIALYSIS ONLY) XX SCH (06:30)
[2023-06-14] MEDS ORDERED: SODIUM CHLORIDE 0.9% 1000ML IV PRN (06:30)
[2023-06-14 06:34] LABS: VANCOMYCIN RANDOM 24.5 UG/ML
[2023-06-14 06:37] LABS: CALCIUM LEVEL 7.8 MG/DL (8.3-10.6); CREATININE FOR GFR 6.33 MG/DL (0.70-1.30); GLOMERULAR FILTRATION RATE 9.6 (>49); PHOSPHORUS LEVEL 5.4 MG/DL (2.4-5.1); POTASSIUM SERUM 5.2 MMOL/L (3.5-5.1)
[2023-06-14] MEDS: INSULIN LISPRO (NovoLOG) PER UNIT SC SCH ×4 (07:31→20:58)
[2023-06-14] MEDS: ASPIRIN 81MG ENTERIC TABLET PO SCH (07:32)
[2023-06-14] MEDS: PANTOPRAZOLE 40MG TAB (PROTONIX) PO SCH (07:32)
[2023-06-14] MEDS: MIDODRINE 5 MG TAB PO SCH ×3 (07:34→16:12)
[2023-06-14] MEDS: [UNRECOGNIZED DRUG - REMARK] XX SCH (07:34)
[2023-06-14] MEDS: CHLORHEXIDINE GLUCONATE 0.12 % 15ML UDC (PERIDEX ORAL RINSE) MT SCH (07:34)
[2023-06-14] MEDS: FLUTICASONE PROP 0.05% NASAL SPRAY 16 GM (FLONASE) NARES SCH (07:35)
[2023-06-14] MEDS: LIDOCAINE 5% (LIDODERM) PATCH TD SCH (07:35)
[2023-06-14] MEDS: GABAPENTIN 100 MG CAP PO SCH ×3 (07:35→20:52)
[2023-06-14] MEDS: allopurinoL 100 MG TAB PO SCH (07:35)
[2023-06-14] MEDS: SIMVASTATIN 40 MG TAB PO SCH (07:36)
[2023-06-14 07:45] LABS: LYMPHOCYTES 8 % (16-44); METAMYELOCYTES 4 % (0-0); MONOCYTES 9 % (0-5); NEUTROPHILS 78 % (28-66); PLATELET ESTIMATE NORMAL (NORMAL)
[2023-06-14] MEDS ORDERED: LIDOCAINE W/EPINEPHRINE 1% 20ML VIAL As Ordered ONE (09:58)
[2023-06-14] MEDS: AMIODARONE 100MG TABLET (PACERONE) PO SCH (12:30)
[2023-06-14] MEDS: FIDAXOMICIN 200 MG TAB (DIFICID) PO SCH ×2 (12:31→20:52)
[2023-06-14] MEDS: NOREPINEPHRINE 4MG IN D5 250ML 4 MG in IV 1 EA IV SCH ×2 (14:24)
[2023-06-14] MEDS ORDERED: NS 500 ML IV ONE (18:15)
[2023-06-14] MEDS: LATANOPROST 0.005% OPHTH SOLN 2.5 ML OU SCH (20:52)
[2023-06-15] VITALS (47 sets, daily range): BP systolic 82–137; BP diastolic 50–67; TEMP 98–98.5; O2SAT 98–100
[2023-06-15] MEDS: NOREPINEPHRINE 4MG IN D5 250ML 4 MG in IV 1 EA IV SCH ×4 (06:40→23:20)
[2023-06-15 08:36] LABS: ALBUMIN 1.2 G/DL (3.2-5.2); CALCIUM LEVEL 7.8 MG/DL (8.3-10.6); CREATININE FOR GFR 5.09 MG/DL (0.70-1.30); GLOMERULAR FILTRATION RATE 12.4 (>49); PHOSPHORUS LEVEL 4.7 MG/DL (2.4-5.1); POTASSIUM SERUM 4.3 MMOL/L (3.5-5.1)
[2023-06-15] MEDS: INSULIN LISPRO (NovoLOG) PER UNIT SC SCH ×4 (08:58→20:45)
[2023-06-15] MEDS: MIDODRINE 5 MG TAB PO SCH ×3 (08:58→16:26)
[2023-06-15] MEDS: FIDAXOMICIN 200 MG TAB (DIFICID) PO SCH ×2 (08:58→20:40)
[2023-06-15] MEDS: ASPIRIN 81MG ENTERIC TABLET PO SCH (08:58)
[2023-06-15] MEDS: SIMVASTATIN 40 MG TAB PO SCH (08:59)
[2023-06-15] MEDS: [UNRECOGNIZED DRUG - REMARK] XX SCH (09:00)
[2023-06-15] MEDS: PANTOPRAZOLE 40MG TAB (PROTONIX) PO SCH (09:00)
[2023-06-15] MEDS: FLUTICASONE PROP 0.05% NASAL SPRAY 16 GM (FLONASE) NARES SCH (09:01)
[2023-06-15] MEDS: LIDOCAINE 5% (LIDODERM) PATCH TD SCH (09:01)
[2023-06-15] MEDS: GABAPENTIN 100 MG CAP PO SCH ×3 (09:01→20:40)
[2023-06-15] MEDS: AMIODARONE 100MG TABLET (PACERONE) PO SCH (09:01)
[2023-06-15] MEDS: allopurinoL 100 MG TAB PO SCH (09:01)
[2023-06-15] MEDS ORDERED: VANCOMYCIN HCL 1,000 MG, VIAL MATE ADAPTER 1 EACH in D5W 250 ML IV ONE (12:00)
[2023-06-15] MEDS: ACETAMINOPHEN TAB 650MG DOSE (2X325MG) PO PRN ×2 (12:07→20:46)
[2023-06-15] MEDS: HEPARIN SOD (PORCINE) 5000UNITS/ML 1ML VIAL/SYRINGE SQ SCH ×2 (14:14→22:20)
[2023-06-15 14:55] LABS: HEMATOCRIT 28.3 % (42.0-52.0); HEMOGLOBIN 9.7 g/dl (13.5-17.5); MEAN CORPUSCULAR HGB CONC 34.3 g/dl (32.0-36.5); MEAN CORPUSCULAR VOLUME 99.3 fl (80.0-96.0); PLATELET COUNT, AUTOMATED 246 10^3/uL (150-450); RED BLOOD COUNT 2.85 10^6/uL (4.30-6.10); WHITE BLOOD COUNT 26.7 10^3/uL (4.0-10.0)
[2023-06-15 15:18] LABS: EOSINOPHILS 1 % (0-3); LYMPHOCYTES 8 % (16-44); METAMYELOCYTES 1 % (0-0); MONOCYTES 6 % (0-5); MYELOCYTES 3 % (0-0); NEUTROPHILS 80 % (28-66); PLATELET CLUMPS SMALL AMT; PLATELET ESTIMATE NORMAL (NORMAL)
[2023-06-15] MEDS ORDERED: NS 500 ML IV ONE (15:45)
[2023-06-15] MEDS: LEVEMIR (INSULIN DETEMIR) 1 UNITS/0.01ML SC SCH (20:41)
[2023-06-15] MEDS: LATANOPROST 0.005% OPHTH SOLN 2.5 ML OU SCH (20:41)
[2023-06-16] VITALS (15 sets, daily range): BP systolic 95–139; BP diastolic 55–68; TEMP 98–99.5; O2SAT 98–100
[2023-06-16] MEDS: HEPARIN SOD (PORCINE) 5000UNITS/ML 1ML VIAL/SYRINGE SQ SCH ×3 (05:20→22:20)
[2023-06-16 05:52] LABS: HEMATOCRIT 26.8 % (42.0-52.0); HEMOGLOBIN 9.3 g/dl (13.5-17.5); MEAN CORPUSCULAR HGB CONC 34.7 g/dl (32.0-36.5); MEAN CORPUSCULAR VOLUME 100.8 fl (80.0-96.0); PLATELET COUNT, AUTOMATED 266 10^3/uL (150-450); RED BLOOD COUNT 2.66 10^6/uL (4.30-6.10); WHITE BLOOD COUNT 24.1 10^3/uL (4.0-10.0)
[2023-06-16 06:21] LABS: C REACTIVE PROTEIN QUANTITATIV 23.6 MG/DL (<1.0)
[2023-06-16 06:22] LABS: ALBUMIN 1.3 G/DL (3.2-5.2); CALCIUM LEVEL 7.5 MG/DL (8.3-10.6); CREATININE FOR GFR 6.26 MG/DL (0.70-1.30); GLOMERULAR FILTRATION RATE 9.8 (>49); PHOSPHORUS LEVEL 4.2 MG/DL (2.4-5.1); POTASSIUM SERUM 4.1 MMOL/L (3.5-5.1); VANCOMYCIN RANDOM 25.7 UG/ML
[2023-06-16] MEDS: INSULIN LISPRO (NovoLOG) PER UNIT SC SCH ×4 (07:30→20:31)
[2023-06-16] MEDS: [UNRECOGNIZED DRUG - REMARK] XX SCH (08:00)
[2023-06-16] MEDS: FIDAXOMICIN 200 MG TAB (DIFICID) PO SCH ×2 (09:15→20:36)
[2023-06-16] MEDS: ASPIRIN 81MG ENTERIC TABLET PO SCH (09:16)
[2023-06-16] MEDS: allopurinoL 100 MG TAB PO SCH (09:16)
[2023-06-16] MEDS: SIMVASTATIN 40 MG TAB PO SCH (09:16)
[2023-06-16] MEDS: LIDOCAINE 5% (LIDODERM) PATCH TD SCH (09:16)
[2023-06-16] MEDS: GABAPENTIN 100 MG CAP PO SCH ×3 (09:16→20:36)
[2023-06-16] MEDS: AMIODARONE 100MG TABLET (PACERONE) PO SCH (09:16)
[2023-06-16] MEDS: FLUTICASONE PROP 0.05% NASAL SPRAY 16 GM (FLONASE) NARES SCH (09:16)
[2023-06-16] MEDS: MIDODRINE 5 MG TAB PO SCH ×3 (09:19→16:20)
[2023-06-16] MEDS: LEVEMIR (INSULIN DETEMIR) 1 UNITS/0.01ML SC SCH (20:36)
[2023-06-16] MEDS: LATANOPROST 0.005% OPHTH SOLN 2.5 ML OU SCH (20:36)
[2023-06-17] VITALS (8 sets, daily range): BP systolic 88–131; BP diastolic 56–75; TEMP 97.4–99.1; O2SAT 97–100
[2023-06-17 05:56] LABS: HEMATOCRIT 29.5 % (42.0-52.0); HEMOGLOBIN 9.9 g/dl (13.5-17.5); MEAN CORPUSCULAR HEMOGLOBIN 33.8 pg (27.0-33.0); MEAN CORPUSCULAR HGB CONC 33.6 g/dl (32.0-36.5); MEAN CORPUSCULAR VOLUME 100.7 fl (80.0-96.0); PLATELET COUNT, AUTOMATED 294 10^3/uL (150-450); RED BLOOD COUNT 2.93 10^6/uL (4.30-6.10); WHITE BLOOD COUNT 21.4 10^3/uL (4.0-10.0)
[2023-06-17] MEDS: HEPARIN SOD (PORCINE) 5000UNITS/ML 1ML VIAL/SYRINGE SQ SCH ×3 (06:15→21:07)
[2023-06-17 06:25] LABS: EOSINOPHILS 1 % (0-3); LYMPHOCYTES 8 % (16-44); METAMYELOCYTES 3 % (0-0); MONOCYTES 6 % (0-5); MYELOCYTES 2 % (0-0); NEUTROPHILS 77 % (28-66); PLASMA CELL 1 % (0-0)
[2023-06-17 06:26] LABS: PLATELET ESTIMATE NORMAL (NORMAL)
[2023-06-17 06:27] LABS: PLATELET CLUMPS SMALL AMT; POLYCHROMASIA 1+
[2023-06-17] MEDS: INSULIN LISPRO (NovoLOG) PER UNIT SC SCH ×4 (07:30→20:36)
[2023-06-17] MEDS: [UNRECOGNIZED DRUG - REMARK] XX SCH (08:00)
[2023-06-17] MEDS: AMIODARONE 100MG TABLET (PACERONE) PO SCH (08:23)
[2023-06-17] MEDS: SIMVASTATIN 40 MG TAB PO SCH (08:23)
[2023-06-17] MEDS: FIDAXOMICIN 200 MG TAB (DIFICID) PO SCH ×2 (08:23→20:48)
[2023-06-17] MEDS: ASPIRIN 81MG ENTERIC TABLET PO SCH (08:23)
[2023-06-17] MEDS: GABAPENTIN 100 MG CAP PO SCH ×3 (08:23→20:48)
[2023-06-17] MEDS: MIDODRINE 5 MG TAB PO SCH ×3 (08:24→16:08)
[2023-06-17] MEDS: allopurinoL 100 MG TAB PO SCH (08:24)
[2023-06-17] MEDS: LIDOCAINE 5% (LIDODERM) PATCH TD SCH (08:24)
[2023-06-17] MEDS: FLUTICASONE PROP 0.05% NASAL SPRAY 16 GM (FLONASE) NARES SCH (08:24)
[2023-06-17 09:05] LABS: C REACTIVE PROTEIN QUANTITATIV 21.8 MG/DL (<1.0)
[2023-06-17 09:50] LABS: ALBUMIN 1.6 G/DL (3.2-5.2); CALCIUM LEVEL 7.5 MG/DL (8.3-10.6); CREATININE FOR GFR 7.86 MG/DL (0.70-1.30); GLOMERULAR FILTRATION RATE 7.5 (>49); MAGNESIUM LEVEL 2.2 MG/DL (1.8-2.4); PHOSPHORUS LEVEL 4.6 MG/DL (2.4-5.1); POTASSIUM SERUM 4.1 MMOL/L (3.5-5.1)
[2023-06-17] MEDS ORDERED: DAPTOmycin 1,000 MG in NS 50 ML IV ONE (12:00)
[2023-06-17] MEDS: CEFTAROLINE FOSAMIL 200 MG in D5W 50 ML IV SCH ×2 (12:07→18:04)
[2023-06-17] MEDS ORDERED: SODIUM CHLORIDE 0.9% 1000ML IV ONE (20:40)
[2023-06-17] MEDS: LEVEMIR (INSULIN DETEMIR) 1 UNITS/0.01ML SC SCH (20:48)
[2023-06-17] MEDS: LATANOPROST 0.005% OPHTH SOLN 2.5 ML OU SCH (21:02)
[2023-06-18] VITALS (12 sets, daily range): BP systolic 86–139; BP diastolic 51–68; TEMP 97.1–98.7; O2SAT 95–99
[2023-06-18] MEDS: CEFTAROLINE FOSAMIL 200 MG in D5W 50 ML IV SCH ×3 (03:14→22:48)
[2023-06-18 05:20] LABS: HEMOGLOBIN 8.9 g/dl (13.5-17.5); MEAN CORPUSCULAR HGB CONC 34.2 g/dl (32.0-36.5); MEAN CORPUSCULAR VOLUME 99.2 fl (80.0-96.0); PLATELET COUNT, AUTOMATED 344 10^3/uL (150-450); RED BLOOD COUNT 2.62 10^6/uL (4.30-6.10); WHITE BLOOD COUNT 20.8 10^3/uL (4.0-10.0)
[2023-06-18 05:48] LABS: C REACTIVE PROTEIN QUANTITATIV 21.1 MG/DL (<1.0)
[2023-06-18 05:52] LABS: ALBUMIN 1.3 G/DL (3.2-5.2); CREATININE FOR GFR 8.74 MG/DL (0.70-1.30); GLOMERULAR FILTRATION RATE 6.6 (>49); MAGNESIUM LEVEL 2.2 MG/DL (1.8-2.4); PHOSPHORUS LEVEL 4.6 MG/DL (2.4-5.1); POTASSIUM SERUM 4.4 MMOL/L (3.5-5.1)
[2023-06-18] MEDS: HEPARIN SOD (PORCINE) 5000UNITS/ML 1ML VIAL/SYRINGE SQ SCH ×3 (05:55→22:41)
[2023-06-18] MEDS ORDERED: MIDODRINE 5 MG TAB PO ONE (06:00)
[2023-06-18 06:47] LABS: ANISOCYTOSIS 1+; EOSINOPHILS 1 % (0-3); LYMPHOCYTES 9 % (16-44); MONOCYTES 3 % (0-5); NEUTROPHILS 87 % (28-66); PLATELET ESTIMATE NORMAL (NORMAL); POLYCHROMASIA 1+
[2023-06-18] MEDS ORDERED: HEPARIN 1,000UNITS/ML 10ML VIAL (FOR RADIOLOGY & DIALYSIS ONLY) IV PRN (07:10)
[2023-06-18] MEDS ORDERED: SODIUM CHLORIDE 0.9% 1000ML IV PRN (07:10)
[2023-06-18] MEDS ORDERED: HEPARIN 1,000UNITS/ML 10ML VIAL (FOR RADIOLOGY & DIALYSIS ONLY) XX SCH (07:10)
[2023-06-18] MEDS: INSULIN LISPRO (NovoLOG) PER UNIT SC SCH ×4 (07:30→21:00)
[2023-06-18] MEDS: MIDODRINE 5 MG TAB PO SCH ×3 (08:00→16:32)
[2023-06-18] MEDS ORDERED: HEPARIN 1,000UNITS/ML 10ML VIAL (FOR RADIOLOGY & DIALYSIS ONLY) IV STA (08:41)
[2023-06-18] MEDS: ASPIRIN 81MG ENTERIC TABLET PO SCH (10:07)
[2023-06-18] MEDS: FLUTICASONE PROP 0.05% NASAL SPRAY 16 GM (FLONASE) NARES SCH (10:08)
[2023-06-18] MEDS: allopurinoL 100 MG TAB PO SCH (10:08)
[2023-06-18] MEDS: GABAPENTIN 100 MG CAP PO SCH ×3 (10:08→22:41)
[2023-06-18] MEDS: AMIODARONE 100MG TABLET (PACERONE) PO SCH (10:08)
[2023-06-18] MEDS: LIDOCAINE 5% (LIDODERM) PATCH TD SCH (10:09)
[2023-06-18] MEDS: FIDAXOMICIN 200 MG TAB (DIFICID) PO SCH ×2 (12:08→22:41)
[2023-06-18] MEDS: [UNRECOGNIZED DRUG - REMARK] XX SCH (17:00)
[2023-06-18] MEDS: LEVEMIR (INSULIN DETEMIR) 1 UNITS/0.01ML SC SCH (21:00)
[2023-06-18] MEDS: LATANOPROST 0.005% OPHTH SOLN 2.5 ML OU SCH (22:42)
[2023-06-19] VITALS (50 sets, daily range): BP systolic 47–130; BP diastolic 28–88; TEMP 97–97.7; O2SAT 84–100
[2023-06-19] MEDS: CEFTAROLINE FOSAMIL 200 MG in D5W 50 ML IV SCH ×2 (03:05→13:29)
[2023-06-19 05:09] LABS: HEMATOCRIT 26.1 % (42.0-52.0); HEMOGLOBIN 8.8 g/dl (13.5-17.5); MEAN CORPUSCULAR HEMOGLOBIN 33.7 pg (27.0-33.0); MEAN CORPUSCULAR HGB CONC 33.7 g/dl (32.0-36.5); PLATELET COUNT, AUTOMATED 367 10^3/uL (150-450); RED BLOOD COUNT 2.61 10^6/uL (4.30-6.10); WHITE BLOOD COUNT 18.3 10^3/uL (4.0-10.0)
[2023-06-19 05:24] LABS: C REACTIVE PROTEIN QUANTITATIV 18.7 MG/DL (<1.0)
[2023-06-19 05:26] LABS: ALBUMIN 1.3 G/DL (3.2-5.2); BILIRUBIN,TOTAL 1.2 MG/DL (0.3-1.2); CALCIUM LEVEL 7.6 MG/DL (8.3-10.6); CREATININE FOR GFR 6.33 MG/DL (0.70-1.30); GLOMERULAR FILTRATION RATE 9.6 (>49); POTASSIUM SERUM 4.3 MMOL/L (3.5-5.1); TOTAL PROTEIN 5.7 G/DL (5.7-8.2)
[2023-06-19 05:40] LABS: BASOPHILS 1 % (0-1); BLAST CELLS 1 % (0-0); EOSINOPHILS 3 % (0-3); LYMPHOCYTES 8 % (16-44); METAMYELOCYTES 1 % (0-0); MONOCYTES 6 % (0-5); NEUTROPHILS 79 % (28-66)
[2023-06-19 05:41] LABS: ANISOCYTOSIS 1+; OVALOCYTES 1+; POIKILOCYTOSIS 1+; POLYCHROMASIA 1+
[2023-06-19 05:42] LABS: PLATELET ESTIMATE NORMAL (NORMAL); SPHEROCYTES 1+
[2023-06-19] MEDS: HEPARIN SOD (PORCINE) 5000UNITS/ML 1ML VIAL/SYRINGE SQ SCH ×2 (05:58→13:47)
[2023-06-19] MEDS: INSULIN LISPRO (NovoLOG) PER UNIT SC SCH ×2 (07:30→12:00)
[2023-06-19] MEDS ORDERED: ISOVUE-370 76% 100ML VIAL As Ordered ONE (08:30)
[2023-06-19] MEDS: AMIODARONE 100MG TABLET (PACERONE) PO SCH (09:39)
[2023-06-19] MEDS: GABAPENTIN 100 MG CAP PO SCH (09:39)
[2023-06-19] MEDS: FIDAXOMICIN 200 MG TAB (DIFICID) PO SCH (09:39)
[2023-06-19] MEDS: FLUTICASONE PROP 0.05% NASAL SPRAY 16 GM (FLONASE) NARES SCH (09:39)
[2023-06-19] MEDS: ASPIRIN 81MG ENTERIC TABLET PO SCH (09:39)
[2023-06-19] MEDS: allopurinoL 100 MG TAB PO SCH (09:39)
[2023-06-19] MEDS: LIDOCAINE 5% (LIDODERM) PATCH TD SCH (09:40)
[2023-06-19] MEDS: MIDODRINE 5 MG TAB PO SCH (09:41)
[2023-06-19] MEDS: ACETAMINOPHEN TAB 650MG DOSE (2X325MG) PO PRN (10:18)
[2023-06-19] MEDS ORDERED: oxyCODONE 5MG TAB PO PRN (10:25)
[2023-06-19] MEDS ORDERED: MIDAZOLAM INJ 2MG/2ML VIAL As Ordered ONE (11:15)
[2023-06-19] MEDS ORDERED: MIDAZOLAM INJ 2MG/2ML VIAL IV STA (11:18)
[2023-06-19] MEDS ORDERED: SODIUM BICARBONATE 8.4% INJ 50ML SYRINGE As Ordered ONE (11:28)
[2023-06-19] MEDS: NOREPINEPHRINE 4MG IN D5 250ML 4 MG in IV 1 EA IV SCH ×4 (11:48→14:02)
[2023-06-19] MEDS ORDERED: SODIUM BICARBONATE 8.4% INJ 50ML SYRINGE IV STA (11:52)
[2023-06-19] MEDS ORDERED: MIDAZOLAM INJ 2MG/2ML VIAL IV PRN (11:55)
[2023-06-19] MEDS ORDERED: VASOPRESSIN INJ 20UNITS/ML 1ML VIAL As Ordered ONE (11:59)
[2023-06-19] MEDS ORDERED: IPRATROPIUM 0.5MG/ALBUTEROL 2.5MG INH SOL UD 3ML (DUONEB) NEB SCH (12:00)
[2023-06-19] MEDS ORDERED: COMBIVENT RESPIMAT 100-20MCG INHALER 4GM INH SCH (12:00)
[2023-06-19] MEDS ORDERED: VASOPRESSIN INJ 20 UNITS in NS 500 ML IV SCH ×2 (12:00→20:00)
[2023-06-19 13:17] LABS: ABG HCO3 11.4 MMOL/L (22.0-26.0); ABG O2 SATURATION 99.6 % (95.0-99.0); ABG PARTIAL PRESSURE CO2 25.9 mmHg (35.0-45.0); ABG PARTIAL PRESSURE O2 286.1 mmHg (75.0-100.0); ABG STANDARD HCO3 13.6 MMOL/L. (22.0-26.0); ABG TOTAL CO2 12.2 MMOL/L (23.0-31.0); ABG pH (ARTERIAL) 7.263 UNITS (7.350-7.450)
[2023-06-19] MEDS: [UNRECOGNIZED DRUG - REMARK] XX SCH (13:25)
[2023-06-19 14:52] LABS: HEMATOCRIT 31.1 % (42.0-52.0); HEMOGLOBIN 9.7 g/dl (13.5-17.5); MEAN CORPUSCULAR HEMOGLOBIN 33.8 pg (27.0-33.0); MEAN CORPUSCULAR HGB CONC 31.2 g/dl (32.0-36.5); MEAN CORPUSCULAR VOLUME 108.4 fl (80.0-96.0); PLATELET COUNT, AUTOMATED 408 10^3/uL (150-450); RED BLOOD COUNT 2.87 10^6/uL (4.30-6.10); WHITE BLOOD COUNT 27.8 10^3/uL (4.0-10.0)
[2023-06-19 14:54] LABS: CK-MB VALUE MASS 2.1 NG/ML (<3.6)
[2023-06-19 14:58] LABS: ALBUMIN 1.4 G/DL (3.2-5.2); BILIRUBIN,TOTAL 1.1 MG/DL (0.3-1.2); CALCIUM LEVEL 8.3 MG/DL (8.3-10.6); CREATININE FOR GFR 6.55 MG/DL (0.70-1.30); GLOMERULAR FILTRATION RATE 9.2 (>49); MB/CK RELATIVE INDEX 2.01 (< OR =4); POTASSIUM SERUM 6.3 MMOL/L (3.5-5.1); TOTAL PROTEIN 6.3 G/DL (5.7-8.2)
[2023-06-19] MEDS ORDERED: SODIUM BICARBONATE 8.4% INJ 50ML SYRINGE ONE (15:46)
[2023-06-19] MEDS ORDERED: EPINEPHrine 1MG/10ML SYRINGE 1.5IN ONE (15:46)
[2023-06-19 15:56] LABS: CALCIUM LEVEL 7.6 MG/DL (8.3-10.6); CREATININE FOR GFR 6.6 MG/DL (0.70-1.30); GLOMERULAR FILTRATION RATE 9.2 (>49); POTASSIUM SERUM 5.3 MMOL/L (3.5-5.1)
[2023-06-19] MEDS ORDERED: DAPTOmycin 1,000 MG in NS 50 ML IV SCH (16:00)
[2023-06-20 16:09] LABS: HSV-1 DNA Negative (Negative); HSV-2 DNA Negative (Negative)
== END 2023-06-19 15:47 | disposition expired | DRG 314 ==
LOC: M ED 11:39 → M ED INP 18:00 → EEVIPCON 18:00 → M ICU 19:05 → M PCU 06-17 18:12 → M ICU 06-19 11:21
PROVIDERS: ADMIT Internal Medicine Pulmonary Disease; ATTEND Internal Medicine Pulmonary Disease
PROC: 5A1D70Z Performance of Urinary Filtration, Intermittent, Less than 6 Hours Per Day (ICD-10-PCS; principal; 2023-06-13)
PROC: 05PY33Z Removal of Infusion Device from Upper Vein, Percutaneous Approach (ICD-10-PCS; 2023-06-14)
PROC: B246ZZZ Ultrasonography of Right and Left Heart (ICD-10-PCS; 2023-06-14)
PROC: 02HV33Z Insertion of Infusion Device into Superior Vena Cava, Percutaneous Approach (ICD-10-PCS; 2023-06-14)
PROC: 02HV33Z Insertion of Infusion Device into Superior Vena Cava, Percutaneous Approach (ICD-10-PCS; 2023-06-18)
PROC: 0BH17EZ Insertion of Endotracheal Airway into Trachea, Via Natural or Artificial Opening (ICD-10-PCS; 2023-06-19)
PROC: 5A1935Z Respiratory Ventilation, Less than 24 Consecutive Hours (ICD-10-PCS; 2023-06-19)
DX: T82.7XXA Infection and inflammatory reaction due to other cardiac and vascular devices, implants and grafts, initial encounter (principal); I26.90 Septic pulmonary embolism without acute cor pulmonale; A41.02 Sepsis due to Methicillin resistant Staphylococcus aureus; R65.20 Severe sepsis without septic shock; N18.6 End stage renal disease; R65.21 Severe sepsis with septic shock; J96.00 Acute respiratory failure, unspecified whether with hypoxia or hypercapnia; E87.1 Hypo-osmolality and hyponatremia; N25.81 Secondary hyperparathyroidism of renal origin; I12.0 Hypertensive chronic kidney disease with stage 5 chronic kidney disease or end stage renal disease; L97.429 Non-pressure chronic ulcer of left heel and midfoot with unspecified severity; L02.415 Cutaneous abscess of right lower limb; L02.414 Cutaneous abscess of left upper limb; G93.40 Encephalopathy, unspecified; L03.116 Cellulitis of left lower limb; A04.72 Enterocolitis due to Clostridium difficile, not specified as recurrent; L03.115 Cellulitis of right lower limb; E46 Unspecified protein-calorie malnutrition; G72.81 Critical illness myopathy; I38 Endocarditis, valve unspecified; E11.40 Type 2 diabetes mellitus with diabetic neuropathy, unspecified; N18.9 Chronic kidney disease, unspecified; I48.91 Unspecified atrial fibrillation; M10.9 Gout, unspecified; E11.22 Type 2 diabetes mellitus with diabetic chronic kidney disease; F17.210 Nicotine dependence, cigarettes, uncomplicated; E11.51 Type 2 diabetes mellitus with diabetic peripheral angiopathy without gangrene; I25.10 Atherosclerotic heart disease of native coronary artery without angina pectoris; Y83.1 Surgical operation with implant of artificial internal device as the cause of abnormal reaction of the patient, or of later complication, without mention of misadventure at the time of the procedure; D50.9 Iron deficiency anemia, unspecified; M75.52 Bursitis of left shoulder; E55.9 Vitamin D deficiency, unspecified; E87.70 Fluid overload, unspecified; E73.9 Lactose intolerance, unspecified; E78.5 Hyperlipidemia, unspecified; Z79.4 Long term (current) use of insulin; N50.89 Other specified disorders of the male genital organs; Z79.899 Other long term (current) drug therapy; Z88.8 Allergy status to other drugs, medicaments and biological substances; D63.1 Anemia in chronic kidney disease; I46.9 Cardiac arrest, cause unspecified; Z99.2 Dependence on renal dialysis; Z66 Do not resuscitate; Z89.511 Acquired absence of right leg below knee; Z89.422 Acquired absence of other left toe(s); E11.621 Type 2 diabetes mellitus with foot ulcer; D64.9 Anemia, unspecified; R74.01 Elevation of levels of liver transaminase levels; E11.65 Type 2 diabetes mellitus with hyperglycemia; H54.8 Legal blindness, as defined in USA; H40.9 Unspecified glaucoma; M54.2 Cervicalgia; G89.29 Other chronic pain; M70.41 Prepatellar bursitis, right knee; E11.649 Type 2 diabetes mellitus with hypoglycemia without coma; Z79.82 Long term (current) use of aspirin; Z94.5 Skin transplant status; Z79.01 Long term (current) use of anticoagulants